=== PATIENT | female | born 1930 | race Caucasian/White ===

== ENCOUNTER → 2016-07-15 | Outpatient (CLI) | payer OTHER ==
[~2016-07-15] MED LIST: ADVI200T PO; DIGO0.12 PO; LASI20TA PO; METO-346 PO; OCUF0.3D OU; OXYB10TA PO; PROT1TAB2 PO; SYNT75TA PO; TYLE325T5 PO; VITA10002 PO
--- NOTE | 2016-07-16 03:09 | REP ---
Clinical: Pain. Technique: Internal rotation, external rotation, and Y view of the left shoulder. Findings: Age-related osteopenia appreciated. Inferior osteophyte noted along the humeral head along with cortical irregularities at the acromioclavicular joint and glenoid rim. Inferior spurring at the acromion process suggested. No acute fracture or dislocation. Impression: Osteopenia and osteoarthritic degenerative changes. Signed by Ze Thomas MD 07/16/2016 03:00 A
== END ==
LOC: M RAD 13:53
PROVIDERS: ATTEND Nurse Practitioner Family
DX: M19.012 Primary osteoarthritis, left shoulder (principal); M85.812 Other specified disorders of bone density and structure, left shoulder

== ENCOUNTER 2016-12-26 15:44 | Emergency (ER) | payer OTHER ==
[~2016-12-26] VITALS: Ht 149.9 cm; Wt 58.6 kg
[~2016-12-26 15:44] MED LIST changes: +OCUF0.25 OU; -OCUF0.3D OU
--- NOTE | 2016-12-26 17:49 | REP ---
Left hand series: Four views: History: Swelling after injury middle finger. Findings: There is advanced diffuse osteoporosis. There is advanced osteoarthritis at the navicular multangular articulation and erosive osteoarthritis is seen at the PIP joint of the ring finger. Old post-traumatic changes are seen at the distal phalanx of the small finger. There is a nodular area of prominent soft tissue swelling at the PIP joint of the long finger. No fracture is seen. 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 Impression: Diffuse osteoporosis. Focal soft tissue swelling at the PIP joint of the long finger. 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 No acute bony abnormality. Signed by Epifanio Gonzales MD 12/26/2016 07:24 P
[2016-12-26 18:07] LABS: BASO % 0.4 % (0.0-1.0); EOS # 0.1 10^3/uL (0.0-0.50); EOS % 1.3 % (0.0-3.0); IMMATURE GRANULOCYTE % 0.2 % (0-0); LYMPH % 22.6 % (24.0-44.0); MEAN CORPUSCULAR HEMOGLOBIN 32.5 pg (27.0-33.0); MEAN CORPUSCULAR HGB CONC 33.9 g/dl (32.0-36.5); MEAN CORPUSCULAR VOLUME 95.9 fl (80.0-96.0); MONO # 0.5 10^3/uL (0.0-0.8); MONO % 11.4 % (0.0-5.0); NEUTROPHILS # 2.9 10^3/uL (1.8-7.7); NEUTROPHILS % 64.1 % (36.0-66.0); PLATELET COUNT, AUTOMATED 129 10^3/uL (150-450); WHITE BLOOD COUNT 4.6 10^3/uL (4.0-10.0)
[2016-12-26 18:17] LABS: INR 1.24
[2016-12-26 18:50] LABS: ERYTHROCYTE SEDIMENTATION RATE 15 mm/hr (0-42)
[2016-12-26] MEDS ORDERED: KEFL500C17 PO (18:52)
[2016-12-26 19:10] VITALS: BP 133/91
== END 2016-12-26 19:15 | disposition home or self-care (01) ==
LOC: M ED 15:44
DX: S61.213A Laceration without foreign body of left middle finger without damage to nail, initial encounter (principal); W26.8XXA Contact with other sharp object(s), not elsewhere classified, initial encounter; Y92.9 Unspecified place or not applicable; Y93.89 Activity, other specified; Y99.9 Unspecified external cause status; D72.829 Elevated white blood cell count, unspecified; M81.8 Other osteoporosis without current pathological fracture; E03.9 Hypothyroidism, unspecified; F32.9 Major depressive disorder, single episode, unspecified; Z79.899 Other long term (current) drug therapy

== ENCOUNTER 2018-01-15 13:18 | Inpatient (IN) | payer OTHER ==
[2018-01-15 14:31] LABS: KETONE, URINE AUTO RFX NEGATIVE (NEGATIVE); LEUKOCYTE ESTERASE UR AUTO RFX TRACE (NEGATIVE); MUCUS, URINE RFX SMALL (NEGATIVE); NITRITE, URINE AUTO RFX NEGATIVE (NEGATIVE); RBC, URINE AUTO RFX 1 /HPF (0-3); SPECIFIC GRAVITY UR AUTO RFX 1.027 (1.002-1.035); SQUAM EPITHELIAL CELL UR AURFX 1 /HPF (0-6); WBC, URINE AUTO RFX 2 /HPF (0-3)
[2018-01-15] MEDS ORDERED: GASTROGRAFIN SOLUTION 30ML (Q9963) As Ordered (15:09)
[2018-01-15] MEDS: GASTROGRAFIN SOLUTION 30ML PO ×2 (15:30→16:12)
[2018-01-15] MEDS ORDERED: ISOVUE-370 76% 100ML VIAL (Q9967) As Ordered (15:44)
[2018-01-15 15:45] LABS: BASO % 0.6 % (0.0-1.0); EOS # 0.1 10^3/uL (0.0-0.50); EOS % 1.1 % (0.0-3.0); HEMOGLOBIN 14.5 g/dl (12.0-15.5); IMMATURE GRANULOCYTE % 0.4 % (0-3.0); LYMPH % 18.2 % (24.0-44.0); MEAN CORPUSCULAR HEMOGLOBIN 32.9 pg (27.0-33.0); MEAN CORPUSCULAR HGB CONC 34.5 g/dl (32.0-36.5); MEAN CORPUSCULAR VOLUME 95.2 fl (80.0-96.0); MONO # 0.7 10^3/uL (0.0-0.8); MONO % 13.4 % (0.0-5.0); NEUTROPHILS # 3.5 10^3/uL (1.8-7.7); NEUTROPHILS % 66.3 % (36.0-66.0); PLATELET COUNT, AUTOMATED 126 10^3/uL (150-450); RED BLOOD COUNT 4.41 10^6/uL (4.00-5.40); RED CELL DISTRIBUTION WIDTH 12.9 % (11.5-14.5); WHITE BLOOD COUNT 5.2 10^3/uL (4.0-10.0)
[2018-01-15] MEDS: ONDANSETRON 4MG/2ML VIAL (J2405) IV (15:45)
[2018-01-15] MEDS: MORPHINE 2 MG/ML 1ML SYRINGE (J2270) IV ×2 (15:47→16:12)
[2018-01-15 16:30] LABS: ANION GAP 11 MEQ/L (8-16); BLOOD UREA NITROGEN 29 MG/DL (7-18); CALCIUM LEVEL 8.4 MG/DL (8.8-10.2); CARBON DIOXIDE LEVEL 23 MEQ/L (21-32); CHLORIDE LEVEL 102 MEQ/L (98-107); CREATININE FOR GFR 0.84 MG/DL (0.55-1.30); GLOMERULAR FILTRATION RATE > 60.0 (>32); GLUCOSE, FASTING 85 MG/DL (70-100); POTASSIUM SERUM 4.3 MEQ/L (3.5-5.1); SODIUM LEVEL 136 MEQ/L (136-145)
[2018-01-15 17:32] LABS: FREE T4 1.41 NG/DL (0.76-1.46)
[2018-01-15] MEDS: METOPROLOL TART 25 MG TABLET PO (18:05)
[2018-01-15] MEDS: LEVOTHYROXINE 75MCG TABLET (0.075MG) PO (22:21)
[2018-01-15] MEDS: oxyBUTYnin *DITROPAN XL* 5 MG TABCR PO (22:21)
[2018-01-15] MEDS: CYANOCOBALAMIN 500 MCG TAB PO (22:21)
[2018-01-15] MEDS: RIVAROXABAN 20 MG TAB (XARELTO) PO (22:21)
[2018-01-15] MEDS: NORCO, ANEXSIA 5/325MG TABLET (HYDROcodone/ACETAMINOPHEN) PO (22:22)
[2018-01-16] MEDS: NORCO, ANEXSIA 5/325MG TABLET (HYDROcodone/ACETAMINOPHEN) PO ×2 (05:29→20:44)
[2018-01-16] MEDS: FUROSEMIDE 20 MG TAB PO (09:13)
[2018-01-16] MEDS: MORPHINE 4 MG/ML 1ML VIAL/SYRINGE (J2270) IV (17:06)
[2018-01-16] MEDS: RIVAROXABAN 20 MG TAB (XARELTO) PO (17:06)
[2018-01-16] MEDS: LEVOTHYROXINE 75MCG TABLET (0.075MG) PO (20:43)
[2018-01-16] MEDS: oxyBUTYnin *DITROPAN XL* 5 MG TABCR PO (20:43)
[2018-01-16] MEDS: CYANOCOBALAMIN 500 MCG TAB PO (20:44)
[2018-01-16] MEDS: MIRALAX *UNIT DOSE* 17GM PACKET PO (20:44)
[2018-01-16] MEDS: DOCUSATE SODIUM 100 MG CAP PO (20:44)
[2018-01-17] MEDS: NORCO, ANEXSIA 5/325MG TABLET (HYDROcodone/ACETAMINOPHEN) PO ×4 (04:40→21:44)
[2018-01-17] MEDS: MIRALAX *UNIT DOSE* 17GM PACKET PO ×2 (09:51→21:44)
[2018-01-17] MEDS: DOCUSATE SODIUM 100 MG CAP PO ×2 (09:51→21:43)
[2018-01-17] MEDS: FUROSEMIDE 20 MG TAB PO (09:51)
[2018-01-17] MEDS: RIVAROXABAN 20 MG TAB (XARELTO) PO (17:58)
[2018-01-17] MEDS: CYANOCOBALAMIN 500 MCG TAB PO (21:43)
[2018-01-17] MEDS: oxyBUTYnin *DITROPAN XL* 5 MG TABCR PO (21:43)
[2018-01-17] MEDS: LEVOTHYROXINE 75MCG TABLET (0.075MG) PO (21:43)
[2018-01-18] MEDS: NORCO, ANEXSIA 5/325MG TABLET (HYDROcodone/ACETAMINOPHEN) PO ×3 (05:21→17:37)
[2018-01-18] MEDS: DOCUSATE SODIUM 100 MG CAP PO ×2 (08:04→21:28)
[2018-01-18] MEDS: FUROSEMIDE 20 MG TAB PO (08:04)
[2018-01-18] MEDS: MIRALAX *UNIT DOSE* 17GM PACKET PO ×2 (08:04→21:28)
[2018-01-18 09:13] LABS: HEMATOCRIT 41.8 % (36.0-47.0); HEMOGLOBIN 14.1 g/dl (12.0-15.5); MEAN CORPUSCULAR HEMOGLOBIN 32.4 pg (27.0-33.0); MEAN CORPUSCULAR HGB CONC 33.7 g/dl (32.0-36.5); MEAN CORPUSCULAR VOLUME 96.1 fl (80.0-96.0); PLATELET COUNT, AUTOMATED 130 10^3/uL (150-450); RED BLOOD COUNT 4.35 10^6/uL (4.00-5.40); RED CELL DISTRIBUTION WIDTH 12.7 % (11.5-14.5); WHITE BLOOD COUNT 4.6 10^3/uL (4.0-10.0)
[2018-01-18 09:20] LABS: ANION GAP 5 MEQ/L (8-16); BLOOD UREA NITROGEN 19 MG/DL (7-18); CALCIUM LEVEL 8.7 MG/DL (8.8-10.2); CARBON DIOXIDE LEVEL 28 MEQ/L (21-32); CHLORIDE LEVEL 99 MEQ/L (98-107); CREATININE FOR GFR 0.85 MG/DL (0.55-1.30); GLOMERULAR FILTRATION RATE > 60.0 (>32); GLUCOSE, FASTING 114 MG/DL (70-100); POTASSIUM SERUM 4.5 MEQ/L (3.5-5.1); SODIUM LEVEL 132 MEQ/L (136-145)
[2018-01-18] MEDS: RIVAROXABAN 20 MG TAB (XARELTO) PO (17:37)
[2018-01-18] MEDS: CYANOCOBALAMIN 500 MCG TAB PO (21:28)
[2018-01-18] MEDS: LEVOTHYROXINE 75MCG TABLET (0.075MG) PO (21:28)
[2018-01-18] MEDS: oxyBUTYnin *DITROPAN XL* 5 MG TABCR PO (21:31)
[2018-01-19] MEDS: NORCO, ANEXSIA 5/325MG TABLET (HYDROcodone/ACETAMINOPHEN) PO (02:58)
[2018-01-19 06:48] LABS: HEMATOCRIT 41.4 % (36.0-47.0); HEMOGLOBIN 14.2 g/dl (12.0-15.5); MEAN CORPUSCULAR HEMOGLOBIN 32.6 pg (27.0-33.0); MEAN CORPUSCULAR HGB CONC 34.3 g/dl (32.0-36.5); MEAN CORPUSCULAR VOLUME 95.2 fl (80.0-96.0); PLATELET COUNT, AUTOMATED 119 10^3/uL (150-450); RED BLOOD COUNT 4.35 10^6/uL (4.00-5.40); RED CELL DISTRIBUTION WIDTH 12.6 % (11.5-14.5)
[2018-01-19 07:16] LABS: ANION GAP 8 MEQ/L (8-16); BLOOD UREA NITROGEN 17 MG/DL (7-18); CARBON DIOXIDE LEVEL 28 MEQ/L (21-32); CHLORIDE LEVEL 99 MEQ/L (98-107); CREATININE FOR GFR 0.88 MG/DL (0.55-1.30); GLOMERULAR FILTRATION RATE > 60.0 (>32); GLUCOSE, FASTING 71 MG/DL (70-100); POTASSIUM SERUM 4.1 MEQ/L (3.5-5.1); SODIUM LEVEL 135 MEQ/L (136-145)
[2018-01-19] MEDS: FUROSEMIDE 20 MG TAB PO (10:12)
[2018-01-19] MEDS: MAGNESIUM CITRATE 300 ML BTL PO (10:13)
[2018-01-19] MEDS: MIRALAX *UNIT DOSE* 17GM PACKET PO ×2 (10:13→20:24)
[2018-01-19] MEDS: DOCUSATE SODIUM 100 MG CAP PO ×2 (10:13→20:24)
[2018-01-19] MEDS ORDERED: MAGNESIUM CITRATE 300 ML BTL PO (12:00)
[2018-01-19] MEDS: RIVAROXABAN 20 MG TAB (XARELTO) PO (18:48)
[2018-01-19] MEDS: ACETAMINOPHEN 325 MG TAB PO (20:24)
[2018-01-19] MEDS: CYANOCOBALAMIN 500 MCG TAB PO (20:25)
[2018-01-19] MEDS: oxyBUTYnin *DITROPAN XL* 5 MG TABCR PO (20:25)
[2018-01-19] MEDS: LEVOTHYROXINE 75MCG TABLET (0.075MG) PO (20:25)
[2018-01-20 06:32] LABS: HEMATOCRIT 45.7 % (36.0-47.0); HEMOGLOBIN 15.6 g/dl (12.0-15.5); MEAN CORPUSCULAR HEMOGLOBIN 32.2 pg (27.0-33.0); MEAN CORPUSCULAR HGB CONC 34.1 g/dl (32.0-36.5); MEAN CORPUSCULAR VOLUME 94.2 fl (80.0-96.0); PLATELET COUNT, AUTOMATED 152 10^3/uL (150-450); RED BLOOD COUNT 4.85 10^6/uL (4.00-5.40); RED CELL DISTRIBUTION WIDTH 13.1 % (11.5-14.5); WHITE BLOOD COUNT 8.5 10^3/uL (4.0-10.0)
[2018-01-20] MEDS: NORCO, ANEXSIA 5/325MG TABLET (HYDROcodone/ACETAMINOPHEN) PO (06:47)
[2018-01-20 06:59] LABS: ANION GAP 9 MEQ/L (8-16); BLOOD UREA NITROGEN 25 MG/DL (7-18); CALCIUM LEVEL 9.3 MG/DL (8.8-10.2); CARBON DIOXIDE LEVEL 30 MEQ/L (21-32); CHLORIDE LEVEL 96 MEQ/L (98-107); CREATININE FOR GFR 1.13 MG/DL (0.55-1.30); GLOMERULAR FILTRATION RATE 48.4 (>32); GLUCOSE, FASTING 100 MG/DL (70-100); POTASSIUM SERUM 4.3 MEQ/L (3.5-5.1); SODIUM LEVEL 135 MEQ/L (136-145)
[2018-01-20] MEDS: MIRALAX *UNIT DOSE* 17GM PACKET PO ×2 (09:00→20:02)
[2018-01-20] MEDS: DOCUSATE SODIUM 100 MG CAP PO ×2 (09:00→20:02)
[2018-01-20] MEDS: RIVAROXABAN 20 MG TAB (XARELTO) PO (18:01)
[2018-01-20] MEDS: LEVOTHYROXINE 75MCG TABLET (0.075MG) PO (20:25)
[2018-01-20] MEDS: oxyBUTYnin *DITROPAN XL* 5 MG TABCR PO (20:25)
[2018-01-20] MEDS: CYANOCOBALAMIN 500 MCG TAB PO (20:25)
[2018-01-21] MEDS: NORCO, ANEXSIA 5/325MG TABLET (HYDROcodone/ACETAMINOPHEN) PO (03:00)
[2018-01-21 07:24] LABS: HEMATOCRIT 42.3 % (36.0-47.0); HEMOGLOBIN 14.3 g/dl (12.0-15.5); MEAN CORPUSCULAR HEMOGLOBIN 32.6 pg (27.0-33.0); MEAN CORPUSCULAR HGB CONC 33.8 g/dl (32.0-36.5); MEAN CORPUSCULAR VOLUME 96.6 fl (80.0-96.0); PLATELET COUNT, AUTOMATED 142 10^3/uL (150-450); RED BLOOD COUNT 4.38 10^6/uL (4.00-5.40); WHITE BLOOD COUNT 4.7 10^3/uL (4.0-10.0)
[2018-01-21 07:48] LABS: ANION GAP 6 MEQ/L (8-16); BLOOD UREA NITROGEN 27 MG/DL (7-18); CARBON DIOXIDE LEVEL 31 MEQ/L (21-32); CHLORIDE LEVEL 98 MEQ/L (98-107); CREATININE FOR GFR 0.96 MG/DL (0.55-1.30); GLOMERULAR FILTRATION RATE 58.4 (>32); GLUCOSE, FASTING 81 MG/DL (70-100); POTASSIUM SERUM 4.6 MEQ/L (3.5-5.1); SODIUM LEVEL 135 MEQ/L (136-145)
[2018-01-21] MEDS: DOCUSATE SODIUM 100 MG CAP PO ×2 (09:49→20:24)
[2018-01-21] MEDS: MIRALAX *UNIT DOSE* 17GM PACKET PO ×2 (09:49→20:24)
[2018-01-21] MEDS: RIVAROXABAN 20 MG TAB (XARELTO) PO (17:38)
[2018-01-21] MEDS: oxyBUTYnin *DITROPAN XL* 5 MG TABCR PO (20:24)
[2018-01-21] MEDS: CYANOCOBALAMIN 500 MCG TAB PO (20:24)
[2018-01-21] MEDS: LEVOTHYROXINE 75MCG TABLET (0.075MG) PO (20:24)
[2018-01-22] MEDS: ACETAMINOPHEN 325 MG TAB PO (00:05)
[2018-01-22 06:05] LABS: HEMATOCRIT 41.1 % (36.0-47.0); MEAN CORPUSCULAR HEMOGLOBIN 32.9 pg (27.0-33.0); MEAN CORPUSCULAR HGB CONC 34.1 g/dl (32.0-36.5); MEAN CORPUSCULAR VOLUME 96.7 fl (80.0-96.0); PLATELET COUNT, AUTOMATED 149 10^3/uL (150-450); RED BLOOD COUNT 4.25 10^6/uL (4.00-5.40); WHITE BLOOD COUNT 4.3 10^3/uL (4.0-10.0)
[2018-01-22 06:30] LABS: ANION GAP 4 MEQ/L (8-16); BLOOD UREA NITROGEN 25 MG/DL (7-18); CARBON DIOXIDE LEVEL 31 MEQ/L (21-32); CHLORIDE LEVEL 100 MEQ/L (98-107); CREATININE FOR GFR 0.92 MG/DL (0.55-1.30); GLOMERULAR FILTRATION RATE > 60.0 (>32); GLUCOSE, FASTING 87 MG/DL (70-100); POTASSIUM SERUM 4.9 MEQ/L (3.5-5.1); SODIUM LEVEL 135 MEQ/L (136-145)
[2018-01-22] MEDS: MIRALAX *UNIT DOSE* 17GM PACKET PO (08:52)
[2018-01-22] MEDS: DOCUSATE SODIUM 100 MG CAP PO (08:52)
[2018-01-22] MEDS: NORCO, ANEXSIA 5/325MG TABLET (HYDROcodone/ACETAMINOPHEN) PO (11:54)
== END 2018-01-22 13:10 | disposition home health service (06) | DRG 552 ==
LOC: M ED 13:18 → M ED INP 18:31 → M MS5PR 20:07
DX: S22.080A Wedge compression fracture of T11-T12 vertebra, initial encounter for closed fracture (principal); W18.30XA Fall on same level, unspecified, initial encounter; Y92.009 Unspecified place in unspecified non-institutional (private) residence as the place of occurrence of the external cause; I48.2 Chronic atrial fibrillation; E03.9 Hypothyroidism, unspecified; R33.9 Retention of urine, unspecified; Z79.899 Other long term (current) drug therapy; Z79.01 Long term (current) use of anticoagulants

== ENCOUNTER 2018-04-28 15:36 | Inpatient (IN) | payer MEDICARE, OTHER ==
[~2018-04-28] VITALS: Ht 162.6 cm; Wt 56.4 kg
[~2018-04-28 15:36] MED LIST changes: +COLA100C5 PO; +FURO20TA2 PO; +KEFL500C17 PO; -LASI20TA PO; +LASI20TA3 PO; +NORCOTAB PO; +XARE20TA PO
--- NOTE | 2018-04-28 17:12 | REP ---
Chest one-view HISTORY: Abdominal pain Comparison: 09/12/2014 The lungs are clear. The cardiac silhouette is apart The pulmonary vasculature is normal in appearance. Impression: Cardiomegaly. Electronically Signed by Jabari Cavanaugh MD 04/28/2018 05:03 P
[2018-04-28] MEDS ORDERED: ONDANSETRON 4MG/2ML VIAL (J2405) IV ONE (17:15)
[2018-04-28] MEDS ORDERED: NS 1,000 ML IV ONE (17:15)
--- NOTE | 2018-04-28 17:25 | ECGEPIP ---
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
[2018-04-28 17:38] LABS: BASO % 0.3 % (0.0-1.0); EOS % 0.3 % (0.0-3.0); HEMATOCRIT 41.4 % (36.0-47.0); HEMOGLOBIN 14.4 g/dl (12.0-15.5); LYMPH # 1.3 10^3/uL (1.5-4.5); LYMPH % 19.6 % (24.0-44.0); MEAN CORPUSCULAR HGB CONC 34.8 g/dl (32.0-36.5); MEAN CORPUSCULAR VOLUME 97.9 fl (80.0-96.0); MONO # 0.8 10^3/uL (0.0-0.8); MONO % 11.5 % (0.0-5.0); NEUTROPHILS # 4.5 10^3/uL (1.8-7.7); NEUTROPHILS % 67.9 % (36.0-66.0); PLATELET COUNT, AUTOMATED 184 10^3/uL (150-450); RED BLOOD COUNT 4.23 10^6/uL (4.00-5.40); WHITE BLOOD COUNT 6.7 10^3/uL (4.0-10.0)
[2018-04-28 17:58] LABS: INR 1.97; PROTHROMBIN TIME 22.8 SECONDS (12.1-14.4)
[2018-04-28 18:03] LABS: ALBUMIN 3.1 GM/DL (3.2-5.2); ALT/SGPT 11 U/L (12-78); BILIRUBIN,DIRECT 0.3 MG/DL (0.0-0.2); BILIRUBIN,TOTAL 0.9 MG/DL (0.2-1.0); BLOOD UREA NITROGEN 17 MG/DL (7-18); CALCIUM LEVEL 8.2 MG/DL (8.8-10.2); CARBON DIOXIDE LEVEL 25 MEQ/L (21-32); CHLORIDE LEVEL 101 MEQ/L (98-107); CREATININE FOR GFR 0.67 MG/DL (0.55-1.30); GLOMERULAR FILTRATION RATE > 60.0 (>32); GLUCOSE, FASTING 91 MG/DL (70-100); LIPASE 50 U/L (73-393); POTASSIUM SERUM 4.6 MEQ/L (3.5-5.1); SODIUM LEVEL 134 MEQ/L (136-145); TOTAL PROTEIN 5.3 GM/DL (6.4-8.2)
[2018-04-28] MEDS ORDERED: ISOVUE-370 76% 100ML VIAL (Q9967) As Ordered ONE (18:42)
--- NOTE | 2018-04-28 20:13 | REPVR ---
EXAM: CT Abdomen and Pelvis With Contrast EXAM DATE/TIME: 04/28/2018 6:51 PM CLINICAL HISTORY: 87 years old, female; Pain; Abdominal pain; Additional info: Abd pain/hernia TECHNIQUE: Axial computed tomography images of the abdomen and pelvis with intravenous contrast. All CT scans at this facility use at least one of these dose optimization techniques: automated exposure control; mA and/or kV adjustment per patient size (includes targeted exams where dose is matched to clinical indication); or iterative reconstruction. Coronal and sagittal reformatted images were created and reviewed. CONTRAST: 100 ml of ISO 370 administered intravenously. COMPARISON: CT ABD/PEL W/IV ORAL CONTRAS 01/15/2018 3:42 PM FINDINGS: Lower thorax: There is moderate cardiomegaly. There is no pericardial effusion. There are small bilateral pleural effusions. ABDOMEN: Liver: There are is uniform enhancement of the liver. Gallbladder and bile ducts: The patient is post cholecystectomy. Pancreas: Normal pancreas. Spleen: Normal appearing spleen. Adrenals: Normal adrenal glands. Kidneys and ureters: There is enhancement of the right and left kidney. The right kidney is small compared to the left. PELVIS: Bladder: Urinary bladder is empty. There is no evidence of hydronephrosis. Reproductive: Post hysterectomy. ABDOMEN and PELVIS: Intraperitoneal space: There is no evidence of pneumoperitoneum. There is a moderate amount of ascites through the abdomen and pelvis. The diffuse ascites is new since January. Bones/joints: There is grade 2 spondylolisthesis of L4 on L5. There is mild broad-based disc protrusion L4-L5. There is severe wedge-shaped compression fracture of T12. This creates a severe posterior bony ridge impressing on the thecal sac. Abdomen and bowel: There is a 7 CM by 3.3 CM anterior abdominal wall hernia with protrusion of mesenteric fat and also protrusion of mesenteric vessels. This has increased in size by approximately 1.5 CM since January. There is edema throughout the anterior abdominal wall. There is massive distention many loops of small bowel greater than half of the small bowel. Small bowel loops are distended to 4.2 CM. There is thickening and enhancement of the bowel wall. There is a transition point between severely dilated loop of small bowel and decompressed ileum. A transition point is in the region of the anterior abdominal wall hernia. This is very suspicious for a small bowel obstruction probably a closed loop obstruction. This is a transition point is near the anterior abdominal wall hernia this is probably the point of obstruction and associated with the herniated mesentery and vessels. Representing a significant change since January. Lymph nodes: There are small lymph nodes along the left side of the aorta. Other findings: There is osteoporosis. IMPRESSION: 1. Anterior abdominal wall hernia measuring 7 CM by 3.3 CM increasing by 1.5 CM. Protrusion of mesentery and mesenteric vessels suspect this patient the point of obstruction as there is a transition of dilated small bowel to decompressed ileum. 2. Massive distention of multiple loops of small bowel throughout the abdomen with thickening of the bowel wall. Large amount of secretions and air-fluid levels. This is consistent with small bowel obstruction as there is a transition point from distended small bowel to decompressed small bowel at the level of the hernia. 3. Interval development of a moderate amount of ascites through the abdomen probably the result of the severe obstruction suspect closed-loop obstruction.Findings were discussed with RAMONE SEO at 04/28/2018 8:13 PM EST. Electronically signed by: Javon Moser On 04/28/2018 20:13:38 PM
[2018-04-28] MEDS ORDERED: MORPHINE 4 MG/ML 1ML VIAL/SYRINGE (J2270) IV PRN (22:00)
[2018-04-28] MEDS ORDERED: ONDANSETRON 4MG/2ML VIAL (J2405) IV PRN (22:00)
[2018-04-28] MEDS ORDERED: TYLE500T78 PO (22:26)
[2018-04-28] MEDS: LR 1,000 ML IV SCH (23:14)
[2018-04-29] MEDS ORDERED: HEPARIN DRIP 25,000 UNITS in APPROPRIATE DILUENT 1 EA IV SCH (02:48)
[2018-04-29 06:22] LABS: BASO % 0.4 % (0.0-1.0); EOS % 0.2 % (0.0-3.0); HEMATOCRIT 42.2 % (36.0-47.0); HEMOGLOBIN 14.5 g/dl (12.0-15.5); LYMPH # 0.9 10^3/uL (1.5-4.5); LYMPH % 18.2 % (24.0-44.0); MEAN CORPUSCULAR HEMOGLOBIN 33.8 pg (27.0-33.0); MEAN CORPUSCULAR HGB CONC 34.4 g/dl (32.0-36.5); MEAN CORPUSCULAR VOLUME 98.4 fl (80.0-96.0); MONO # 0.6 10^3/uL (0.0-0.8); NEUTROPHILS # 3.6 10^3/uL (1.8-7.7); NEUTROPHILS % 68.8 % (36.0-66.0); PLATELET COUNT, AUTOMATED 181 10^3/uL (150-450); RED BLOOD COUNT 4.29 10^6/uL (4.00-5.40); WHITE BLOOD COUNT 5.2 10^3/uL (4.0-10.0)
--- NOTE | 2018-04-29 07:26 | REP ---
Supine abdomen, single AP view, 11:36 p.m.: Comparison is the abdomen and pelvis CT earlier this same date. There is a nasogastric tube with the tip in the gastric fundus and the side-hole at the gastroesophageal junction. There are dilated small bowel loops with wall thickening. There is no colonic dilatation. There are surgical clips on the right. The renal calyces and pelves are opacified from the CT IV contrast. Impression: Dilated small bowel loops with wall thickening. Nasogastric tube as described. Electronically Signed by Lebron Murphy MD 04/29/2018 07:18 A
[2018-04-29 07:57] LABS: BLOOD UREA NITROGEN 17 MG/DL (7-18); CALCIUM LEVEL 7.9 MG/DL (8.8-10.2); CARBON DIOXIDE LEVEL 26 MEQ/L (21-32); CHLORIDE LEVEL 102 MEQ/L (98-107); CREATININE FOR GFR 0.74 MG/DL (0.55-1.30); GLOMERULAR FILTRATION RATE > 60.0 (>32); GLUCOSE, FASTING 92 MG/DL (70-100); SODIUM LEVEL 135 MEQ/L (136-145)
[2018-04-29 08:00] VITALS: BP 123/74
--- NOTE | 2018-04-29 08:05 | HPE ---
DATE OF ADMISSION: 04/28/2018 ADMISSION DIAGNOSIS: Intestinal obstruction secondary to adhesions. HISTORY OF PRESENT ILLNESS: The patient is an 87-year-old woman who presented to the emergency department at [facility] complaining of abdominal pain for several days. She reported that she had had no bowel movement for 3 days. She had had some abdominal discomfort off and on and then over the past day or so, she had developed more severe pains, particularly on the day of admission. She reported severe cramping pains that came frequently. She had some nausea and reported also some vomiting. She had had no fevers or chills. In the emergency department, she was found to have a somewhat distended abdomen with a non-reducible small midline hernia. A CT scan of the abdomen and pelvis revealed a small hernia containing only some fatty tissue. She had some markedly dilated loops of small bowel which transitioned to small decompressed loops in the right upper quadrant. There was some free fluid identified. I was consulted and the patient is now admitted to manage her small bowel obstruction. ALLERGIES: Patient has no known drug allergies. MEDICATIONS: - levothyroxine 75 mcg by mouth daily at bedtime - cyanocobalamin 1000 mcg by mouth daily at bedtime - rivaroxaban 20 mg by mouth daily at bedtime - Tylenol Extra Strength 500 mg tablets 1 gram by mouth every 6 hours as needed for pain MEDICAL HISTORY: Significant for: Atrial fibrillation. She has a history of hypothyroidism. History of chronic bilateral lower leg edema. SURGICAL HISTORY: Significant for: Laparoscopic cholecystectomy in 2015. She has had two sections and a hysterectomy. She has had surgery for her right shoulder. She has also had bilateral cataract surgery. REVIEW OF SYSTEMS: Reveals no chest pain or palpitations. She denies any shortness of breath. She has had no jaundice, pancreatitis or hepatitis. She had a compression fracture of the spine about 2 months to 3 months ago. She denies any dysuria or hematuria. FAMILY HISTORY: Noncontributory. PHYSICAL EXAM: Reveals an elderly woman lying quietly on the hospital stretcher. In the course of our discussion and examination, she had several episodes where she expressed significant pain and held her stomach from cramping. Skin is slightly pale but warm and dry. Sclerae are anicteric. Mucous membranes are tacky. Neck is without palpable mass. There is no cervical bruit. Heart: Exam shows an irregular rhythm in the 70s. Lungs are clear to auscultation. The abdomen is protuberant. She does have some bowel sounds present. There is an approximately 5 cm slightly raised, non-reducible hernia bulge in the epigastrium. This is soft and fleshy and not significantly tender. She does have some mild tenderness more diffusely on palpation of the abdomen more so in the central abdomen and slightly into the right upper quadrant. She has an old low midline scar evident. There is no sign of hernia in that area. She has palpable radial pulses bilaterally. She has changes of chronic edema of the distal halves of both lower legs. She does have some edema present. She has palpable dorsalis pedis pulses bilaterally. Laboratory studies show a white count of 7, hemoglobin 14, hematocrit of 41 and a platelet count of 184,000. Differential count showed 68% neutrophils, 20% lymphocytes and 12% monocytes. Her chemistry profile shows a sodium of 134 and her other electrolytes are entirely normal. BUN is 17 with a creatinine of 0.7 and glucose of 91. Liver function tests show her total bilirubin to be normal. AST and ALT are 26 and 11 respectively and the alkaline phosphatase is 101. Her total protein is 5.3 with an albumin of 3.1. Lipase is only 50. IMAGING STUDIES: Includes a CT scan of the abdomen and pelvis that showed some markedly dilated upper abdominal small bowel loops. These appear to terminate in the right upper quadrant where there is some nondistended small bowel noted. She has a hernia noted in the epigastrium which contains some fatty tissue but there is no evidence of bowel protruding into the hernia. There is a small amount of free fluid in the abdomen. The gallbladder is surgically absent. IMPRESSION: 1. Small bowel obstruction secondary to adhesions. 2. Atrial fibrillation. 3. Hypothyroidism. 4. Incarcerated ventral hernia. PLAN: The patient was counseled for admission to the hospital for management of her bowel obstruction. She is fully anticoagulated and we will not take her directly to the operating room. I have recommended a nasogastric tube to decompress her stomach and hopefully the small bowel as well. She will receive some IV fluids. She does not require antibiotics at this time. We will hold her anticoagulation for now. I will request a consultation from the hospitalist for management of her medical issues in anticipation that she may well require surgery for her obstruction. OSCAR
--- NOTE | 2018-04-29 08:12 | CR ---
DATE OF CONSULTATION: 04/28/2018 CHIEF COMPLAINT: Abdominal pain, nausea and vomiting. HISTORY OF PRESENT ILLNESS: The patient is an 87-year-old female. She is very difficult of hearing. Very poor historian. From the chart, it appears she has a past medical history of atrial fibrillation on anticoagulation with Xarelto, hypothyroidism, hypertension. She presented to the emergency room with nausea, vomiting, abdominal pain. A CT of the abdomen and pelvis shows a hernia with obstruction. She was seen by the surgeon and an NG tube was placed and the medical service was called for medical management. Again, the patient is a poor historian, history is very difficult to ascertain. PAST MEDICAL HISTORY: See history of present illness. PAST SURGICAL HISTORY: Unknown. ALLERGIES: No known drug allergies. HOME MEDICATIONS: - levothyroxine - Xarelto - Tylenol REVIEW OF SYSTEMS: Unable to complete as the patient is very difficult of hearing and does not have a hearing aid intact. VITAL SIGNS ON ADMISSION: Temperature 97.8, pulse rate of 70, respiratory rate of 17, satting at 94% on room air, blood pressure 108/75. PHYSICAL EXAMINATION: GENERAL: She is well nourished, in no apparent distress. HEAD: Normocephalic, atraumatic. EYES: Extraocular movements are intact. Pupils equally round and reactive to light. NECK: Supple. No jugular venous pressure (JVP). LUNGS: Clear to auscultation. No crackles. CARDIOVASCULAR: Irregularly irregular rhythm. Normal S1 and S2. ABDOMEN: The abdomen is distended. NG tube is in place. Hypoactive bowel sounds. EXTREMITIES: She has what appears to be lymphedema and chronic venous stasis changes. NEUROLOGICAL EXAM: She is alert and oriented times three. No focal deficits. LABS AND IMAGING DONE IN THE EMERGENCY ROOM: White count of 6, hemoglobin and hematocrit of 14/41, platelet count of 184. Coags: INR 1.97, BUN and creatinine 17/0.76. IMAGING: Chest x-ray cardiomegaly. CT of the abdomen and pelvis anterior abdominal wall hernia measuring 7 cm by 3.3 cm increasing by 1.5 cm. Protrusion of mesentery and mesenteric vessels suspect this patient the point of obstruction as there is a transition of dilated small bowel to decompressed ileum. Massive distention of multiple loops of small bowel throughout the abdomen with thickening of the bowel wall. Large amount of secretions and air-fluid levels. This is consistent with small bowel obstruction. Moderate amount of ascites. ASSESSMENT: Small bowel obstruction at the hernia site. Management as per the surgical team. Nothing by mouth. Serial abdominal imaging. For atrial fibrillation, will stop the patient's Xarelto and place her no heparin drip. In case she needs to go to the operating room, the heparin needs to be held only 6 hours to the procedure where Xarelto will need to be held 48 hours. She is not on anything for rate control. She is currently rate controlled. CHADS-VASc score of 4. Hypothyroidism. Will change to IV Synthroid half a dose 37.5 mcg. Will check TSH in the morning. Supportive deep vein thrombosis (DVT) prophylaxis. She is on heparin drip. Gastrointestinal (GI) prophylaxis, none. Diet nothing by mouth. Thank you for allowing me to participate in the care of this patient. Medicine will continue to follow.
[2018-04-29] MEDS: LEVOTHYROXINE 100 MCG (0.1MG) VIAL IV SCH (10:16)
[2018-04-29] MEDS: LR 1,000 ML IV SCH (11:57)
--- NOTE | 2018-04-29 13:42 | REP ---
Supine abdomen single AP view: Comparison is 04/28/2018, 11:36 p.m.: There are persisting dilated small bowel loops with wall thickening, similar to the prior study. The the tip of the nasogastric tube is again identified in the abdominal left upper quadrant. unchanged. Electronically Signed by Lebron Murphy MD 04/29/2018 01:34 P
[2018-04-29] MEDS ORDERED: GLUCOSE 4 GM CHEW TABLET PO PRN (14:00)
[2018-04-29] MEDS ORDERED: GLUCAGON FOR INJ 1 MG VIAL (J1610) SC PRN (14:00)
[2018-04-29 14:15] VITALS: BP 110/75
[2018-04-29] MEDS: HEPARIN DRIP 25,000 UNITS in APPROPRIATE DILUENT 1 EA IV SCH (15:41)
[2018-04-29 22:00] VITALS: BP 106/78
[2018-04-30] MEDS: LR 1,000 ML IV SCH ×3 (00:12→23:43)
[2018-04-30] MEDS: DEXTROSE 50% 50 ML SYRINGE IV PRN ×2 (01:21→14:48)
[2018-04-30 02:00] VITALS: BP 113/88
[2018-04-30 04:11] LABS: HEMOGLOBIN 13.6 g/dl (12.0-15.5); MEAN CORPUSCULAR HGB CONC 32.4 g/dl (32.0-36.5); PLATELET COUNT, AUTOMATED 167 10^3/uL (150-450); WHITE BLOOD COUNT 5.2 10^3/uL (4.0-10.0)
[2018-04-30] MEDS: HEPARIN SOD (PORCINE) 5000 UNITS/ML VIAL IV PRN (04:37)
[2018-04-30 06:00] VITALS: BP 111/68
--- NOTE | 2018-04-30 08:46 | REP ---
Supine abdomen single AP view: Comparison is 04/29/2018. The tip of the the nasogastric tube is again identified in the left upper quadrant. The number of dilated small bowel loops has significantly decreased. There are a few persisting dilated small bowel loops in the right lower quadrant. The remainder of the previously dilated small bowel loops are no longer dilated. Impression: Improved bowel gas pattern with fewer dilated small bowel loops on the study today. Electronically Signed by Lebron Murphy MD 04/30/2018 08:37 A
[2018-04-30] MEDS: LEVOTHYROXINE 100 MCG (0.1MG) VIAL IV SCH (09:02)
[2018-04-30 10:00] VITALS: BP 119/73
[2018-04-30 14:00] VITALS: BP 120/75
[2018-04-30] MEDS: HEPARIN DRIP 25,000 UNITS in APPROPRIATE DILUENT 1 EA IV SCH (15:25)
--- NOTE | 2018-04-30 20:18 | IPN ---
DATE: 04/29/2018 HISTORY: The patient was admitted late last evening with a bowel obstruction, likely secondary to adhesions. She had a markedly distended abdomen and was having severe crampy abdominal pains. She was kept nothing by mouth (n.p.o.) with a nasogastric (NG) tube in place and received some intravenous (IV) fluid. This morning she reports that she has been passing some flatus. She denies any severe pain at this time. She looks much more comfortable. Vital signs: Show that she has remained afebrile since admission. Her pulse is in the 70s to 80s and her blood pressure is good. Room air oxygen saturation is in the mid to upper 90s. Intake and output reveals that her urine output so far this morning has been recorded as 150 mL. She has 400 mL from her NG tube. PHYSICAL EXAMINATION: The patient is lying quietly on the hospital stretcher. She remains in the emergency department in a holding bed because of a shortage of beds but is due to go to [address]. She is alert and appears oriented. Skin is warm and dry. Abdomen remains distended but is somewhat softer. She does have bowel sounds present. There is no definite tenderness on palpation today. LABORATORY STUDIES: Reveal a white count of 5, hemoglobin of 14, hematocrit 42 and a platelet count of 181,000. Her differential count shows 69% neutrophils, 18% lymphocytes and 12% monocytes. Chemistry profile shows a sodium of 135, potassium 4.0, chloride 102, CO2 of 26, BUN of 17, creatinine 0.7 and a glucose of 92. TSH ordered by the hospitalist this morning is 3.5. IMAGING STUDIES: The patient had a repeat KUB today that does I think show some decrease in the size of her dilated air-filled loops of small bowel. She still has dilated loops of air-filled bowel present. IMPRESSION: The patient is much more comfortable today with the NG tube and with passage of some flatus. PLAN: Her NG tube will be continued, and she will remain on IV fluid. The hospitalist has ordered a heparin drip, oral medications, while she remains nothing by mouth. I will recheck a KUB in the morning to assess her bowel obstruction resolution. With any luck, we will be able to remove her NG tube tomorrow. OSCAR
--- NOTE | 2018-04-30 21:29 | IPNPDOC ---
Text Note Date of Service The patient was seen on 04/30/18. NOTE SUBJECTIVE: Complains of mild discomfort in the abdomen and some cramps. she also complains of soreness in her throat from the NG tube. No chest pain or palpitation. PHYSICAL EXAMINATION: VITALS: As below GENERAL: She is well nourished, in no apparent distress. HEAD: Normocephalic, atraumatic. EYES: Extraocular movements are intact. Pupils equally round and reactive to light. NECK: Supple. No jugular venous pressure (JVP). LUNGS: Clear to auscultation. No crackles. CARDIOVASCULAR: Irregularly irregular rhythm. Normal S1 and S2. rate normal ABDOMEN: The abdomen is less distended. NG tube is in place. Hyperactive bowel sounds EXTREMITIES: She has what appears to be lymphedema and chronic venous stasis changes. NEUROLOGICAL EXAM: She is alert and oriented times three. No focal deficits. Labs and Radiology: Reviewed. ASSESSMENT and PLAN: The patient is an 87-year-old female. She is very difficult of hearing. Very poor historian. From the chart, it appears she has a past medical history of atrial fibrillation on anticoagulation with Xarelto, h ypothyroidism, hypertension. She presented to the emergency room with nausea, vomiting, abdominal pain. A CT of the abdomen and pelvis shows a small midline fat filled hernia without any bowel loops in it with small bowel obstruction. She was seen by the surgeon and an NG tube was placed and the medical service was called for medical management of her medical comorbidities. Atrial fibrillation rate is controlled. xarelto stopped continue heparin infusion. Once it is definite that no surgical intervention is going to be required then can switch to Xarelto again. Hypothyroid on IV synthroid half dose. switch to po when taking by mouth History of Hypertension patient is not on any meds and currently bp is controlled. SBO likely due to adhesions as per surgery. Small midline irreducible fat filled ventral hernia There are no bowel loops in it. DVT prophylaxis patient is on heparin gtt. VS,Fishbone, I+O VS, Fishbone, I+O Laboratory Tests 04/30/18 03:39 Red Blood Count 4.00, Mean Corpuscular Volume 105.0 H, Mean Corpuscular Hemoglob in 34.0 H, Mean Corpuscular Hemoglobin Concent 32.4, Red Cell Distribution Width 14.5 Vital Signs Date Time Temp Pulse Resp B/P (MAP) Pulse Ox O2 Delivery O2 Flow Rate FiO2 04/30/18 14:00 97.6 118 20 120/75 (90) 94 04/29/18 00:28 Room Air I&O- Last 24 Hours up to 6 AM 04/30/18 06:00 Intake Total 600 ml Output Total 900 ml Balance -300 ml DIANELYS MCDOWELL MD Apr 30, 2018 21:29
[2018-04-30 22:00] VITALS: BP 130/80
[2018-05-01 02:00] VITALS: BP 126/79
[2018-05-01 06:00] VITALS: BP 128/97
[2018-05-01 06:07] LABS: HEMATOCRIT 38.7 % (36.0-47.0); HEMOGLOBIN 12.8 g/dl (12.0-15.5); MEAN CORPUSCULAR HEMOGLOBIN 33.2 pg (27.0-33.0); MEAN CORPUSCULAR HGB CONC 33.1 g/dl (32.0-36.5); MEAN CORPUSCULAR VOLUME 100.5 fl (80.0-96.0); PLATELET COUNT, AUTOMATED 153 10^3/uL (150-450); RED BLOOD COUNT 3.85 10^6/uL (4.00-5.40); WHITE BLOOD COUNT 4.8 10^3/uL (4.0-10.0)
[2018-05-01 06:43] LABS: ALBUMIN 2.4 GM/DL (3.2-5.2); ALT/SGPT 12 U/L (12-78); BILIRUBIN,TOTAL 0.9 MG/DL (0.2-1.0); BLOOD UREA NITROGEN 19 MG/DL (7-18); CARBON DIOXIDE LEVEL 23 MEQ/L (21-32); CHLORIDE LEVEL 105 MEQ/L (98-107); CREATININE FOR GFR 0.58 MG/DL (0.55-1.30); GLOMERULAR FILTRATION RATE > 60.0 (>32); GLUCOSE, FASTING 64 MG/DL (70-100); POTASSIUM SERUM 3.8 MEQ/L (3.5-5.1); SODIUM LEVEL 136 MEQ/L (136-145); TOTAL PROTEIN 4.4 GM/DL (6.4-8.2)
--- NOTE | 2018-05-01 09:34 | IPN ---
DATE: 04/30/2018 HISTORY: Patient was admitted with a small bowel obstruction on 02/25/2019 in the late evening. Yesterday, her KUB looked a little better after passage of some flatus, and today it was reported that she has had several large loose bowel movements. She has had some flatus as well. Her nasogastric (NG) tube has very little out, perhaps 200 mL this morning. She is eager to go home but still reports some abdominal discomfort. Vital signs: Show that she has been afebrile. Her pulses range between 85 and 118. Blood pressure is good, and her room air oxygen saturation is excellent. Intake and output yesterday does not appear to have been well recorded. Her intake is clearly not fully recorded given that she is on a regular intravenous (IV) rate. She does have several large bowel movements reported yesterday and today. PHYSICAL EXAM: Patient is lying quietly in the bed. She is alert and oriented. Heart exam shows a rate of about 90. Abdomen is less distended. She has fairly active bowel sounds. The abdomen is soft, though still little full on the right-hand side. She does not appear to have significant tenderness at this point. Laboratory studies show that this morning, she had a white count of 5, hemoglobin 14, hematocrit of 42, and a platelet count 167,000. This is very stable from yesterday and the day before. Her coagulation numbers have been quite variable on her heparin drip, which was ordered by the hospitalist. She did not have any new chemistries today. Her imaging this morning still showed of a couple of moderately-dilated air-filled loops on the right, but overall the pattern was much improved. IMPRESSION: Patient appears to be resolving her bowel obstruction with multiple loose bowel movements and an improved x-ray and abdominal exam. PLAN: Patient's NG tube will be clamped. If she tolerates this well, we will remove her tube and start her on some clear liquids in the morning. OSCAR
[2018-05-01] MEDS: LEVOTHYROXINE 100 MCG (0.1MG) VIAL IV SCH (09:55)
[2018-05-01 10:00] VITALS: BP 126/80
[2018-05-01] MEDS ORDERED: ACETAMINOPHEN 500 MG TAB PO PRN (11:45)
[2018-05-01] MEDS: LR 1,000 ML IV SCH (12:40)
--- NOTE | 2018-05-01 13:13 | IPN ---
DATE OF SERVICE: 05/01/2018 HISTORY: The patient was admitted with a bowel obstruction several days ago. Her nasogastric (NG) tube has been clamped over the last 24 hours or so, and she has tolerated this well. She has had several bowel movements additionally since yesterday. Today, she denies any abdominal pain. She is asking for something to drink or eat. Vital signs show that she has been afebrile over the past 24 hours. Her pulse has generally been in the 70s-80s. Her blood pressure is good, and her room air oxygen saturation is normal. Intake and output yesterday, clearly her intake was not recorded because she had an IV running and there is zero listed. Today, she has 1300 mL listed for IV intake. Her urine output appears to have been adequate. PHYSICAL EXAMINATION: The patient is lying quietly in bed but appears comfortable. She is asking for the nose tube to be removed. Skin is warm and dry. Heart examination shows a regular rhythm. The lungs are clear. The abdomen is nondistended. She has bowel sounds present, and the abdomen is soft and without any apparent tenderness this morning. Chemistry profile today shows normal electrolytes with BUN of 19, creatinine of 0.6, and a glucose of 64. Total protein is only 4.4 with an albumin of 2.4. Complete blood count (CBC) shows a white count of 5, hemoglobin 13, hematocrit of 39, and platelet count of 153,000. A PTT early this morning was 67, which is finally closer to the therapeutic range. IMPRESSION: The patient is doing very well and seems to have resolved her intestinal obstruction. PLAN: The patient's nasogastric (NG) tube will be discontinued. We will start clear liquids and saline lock her IV when she tolerates 500 mL. I will put her back on her oral Synthroid. I will encourage her to be out of bed, and it would probably be appropriate to get a physical therapy (PT) evaluation and treatment as necessary. Hopefully, she can be home in the next day or two. OSCAR
[2018-05-01] MEDS: HEPARIN SOD (PORCINE) 5000 UNITS/ML VIAL IV PRN (13:19)
[2018-05-01] MEDS: HEPARIN DRIP 25,000 UNITS in APPROPRIATE DILUENT 1 EA IV SCH (13:21)
[2018-05-01 14:00] VITALS: BP 120/69
[2018-05-01 18:00] VITALS: BP 126/81
[2018-05-01] MEDS: CYANOCOBALAMIN 500 MCG TAB PO SCH (20:25)
[2018-05-01 22:00] VITALS: BP 125/86
[2018-05-02 02:00] VITALS: BP 122/82
[2018-05-02 06:00] VITALS: BP 114/75
[2018-05-02 10:00] VITALS: BP 124/82
[2018-05-02 14:00] VITALS: BP 128/82
[2018-05-02] MEDS ORDERED: RIVAROXABAN 20 MG TAB (XARELTO) PO ONE (15:00)
--- NOTE | 2018-05-02 15:18 | IPNPDOC ---
Text Note Date of Service The patient was seen on 05/02/18. NOTE SUBJECTIVE: No complaints this morning. Feeling hungry, Off NG tube. diet is bieng advanced by surgery. PHYSICAL EXAMINATION: VITALS: As below GENERAL: She is well nourished, in no apparent distress. HEAD: Normocephalic, atraumatic. EYES: Extraocular movements are intact. Pupils equally round and reactive to light. NECK: Supple. No jugular venous pressure (JVP). LUNGS: Clear to auscultation. No crackles. CARDIOVASCULAR: Irregularly irregular rhythm. Normal S1 and S2. rate normal ABDOMEN: The abdomen is less distended. NG tube is in place. Hyperactive bowel sounds EXTREMITIES: She has what appears to be lymphedema and chronic venous stasis changes. NEUROLOGICAL EXAM: She is alert and oriented times three. No focal deficits. Labs and Radiology: Reviewed. ASSESSMENT and PLAN: The patient is an 87-year-old female. She is very difficult of hearing. Very poor historian. From the chart, it appears she has a past medical history of atrial fibrillation on anticoagulation with Xarelto, hypothyroidism, hypertension. She presented to the emergency room with nausea, vomiting, abdominal pain. A CT of the abdomen and pelvis shows a small midline fat filled hernia without any bowel loops in it with small bowel obstruction. She was seen by the surgeon and an NG tube was placed and the medical service was called for medical management of her medical comorbidities. Atrial fibrillation rate is controlled. Heparin gtt stopped back on xarelto Hypothyroid switch to po synthroid. History of Hypertension patient is not on any meds and currently bp is controlled. SBO likely due to adhesions as per surgery. Small midline irreducible fat filled ventral hernia There are no bowel loops in it. DVT prophylaxis on Xarelto VS,Fishbone, I+O VS, Fishbone, I+O Vital Signs Date Time Temp Pulse Resp B/P (MAP) Pulse Ox O2 Delivery O2 Flow Rate FiO2 05/02/18 14:00 99.1 114 20 128/82 (97) 98 04/29/18 00:28 Room Air I&O- Last 24 Hours up to 6 AM 05/02/18 06:00 Intake Total 1050 ml Output Total 150 ml Balance 900 ml DIANELYS MCDOWELL MD May 02, 2018 15:18
[2018-05-02] MEDS: CYANOCOBALAMIN 500 MCG TAB PO SCH (20:55)
[2018-05-02] MEDS ORDERED: LEVOTHYROXINE 75MCG TABLET (0.075MG) PO SCH (21:00)
[2018-05-02 22:00] VITALS: BP 139/79
[2018-05-03 06:00] VITALS: BP 134/81
[2018-05-03] MEDS ORDERED: RIVAROXABAN 20 MG TAB (XARELTO) PO SCH (18:00)
--- NOTE | 2018-05-03 20:17 | IPN ---
DATE: 05/02/2018 HISTORY: The patient was admitted with a small bowel obstruction on 04/28/2018. She developed multiple bowel movements starting on 04/29/2018. She was advanced to clear liquids on 05/01/2018. She reports that she has no significant pain and has had no nausea or vomiting. She is asking to go home. She took 1000 mL of liquids yesterday and had six bowel movements recorded. Vital signs show that she has been afebrile over the past 24 hours. Her pulse is in the 70s to about 100. Blood pressure is good and her room air oxygen saturation is normal. Intake and output shows that yesterday she had 2400 in and there is 300 of volume recorded out though she did have three voids recorded and six bowel movements noted. PHYSICAL EXAMINATION: The patient is alert and eager to go home. She has not yet had any solid food. She does report flatus and another small bowel movement today. This is not recorded. Heart exam shows a regular rhythm. The lungs are clear. She appears quite comfortable in the bed. Her abdomen is a little protuberant but soft and without any tenderness and she has active bowel sounds. LABORATORY STUDIES: Today she has only a PTT which is 48 on her heparin drip. IMPRESSION: The patient is doing very well. Her diarrhea has stopped. She is tolerating clear liquids well. I have ordered her a regular diet which she can try for lunch. PLAN: On reviewing her physical therapy evaluation from yesterday, they felt that she might benefit from additional inpatient services before discharge. The patient sounds adamant that she did a lot of PT in January and February because of her back injury and does not feel she will need any additional physical therapy. She reports that her two sons live in her home with her and that they help care for her. She says she has a walker at home. She does not do much that gets her out of the house. I will restart her Xarelto and stop the heparin drip. We will try getting her up to ambulate and let her try some regular food for lunch. We will see how things go today and we may be able to discharge her later in the day. OSCAR
--- NOTE | 2018-05-04 14:40 | IPN ---
DATE:05/03/2018 HISTORY: The patient was admitted with signs and symptoms of an intestinal obstruction on 04/28/2018. Her bowel obstruction appeared to resolve over the ensuing 2 days. Her diet was gradually advanced and she has been on regular food since yesterday. She has tolerated this well. She denies any abdominal pain and is eager to go home. Vital signs show that she has been afebrile over the last 24 hours. Her pulse ranges between 99-114 since yesterday. Blood pressure is good and her room air oxygen saturations are normal. Intake and output shows that yesterday she had 720 recorded with several voids and four bowel movements recorded. PHYSICAL EXAMINATION: The patient is lying quietly in the hospital bed, appearing comfortable. She denies any pain. Heart exam shows a regular rhythm. Lungs are clear. The abdomen is slightly protuberant but she has active bowel sounds, and the abdomen is soft and nontender. Her small incarcerated fat containing hernia persists and is nontender. IMPRESSION: The patient's small bowel obstruction has resolved. She is tolerating regular food and is eager to go home. I saw her up walking yesterday evening with one of the nurses using a walker and I believe she is stable for discharge. PLAN: The patient will be discharged home. She does not need to followup with surgery regarding this problem. I did advise her that there is a chance she could have recurrence of her obstruction and she should return to the emergency department if necessary. She should otherwise followup with her primary physician as needed. She will resume the medication she was taking prior to admission. OSCAR
--- NOTE | 2018-05-19 08:17 | DSES ---
DATE OF ADMISSION: 04/28/2018 DATE OF DISCHARGE: 05/03/2018 ADMITTING DIAGNOSIS: Intestinal obstruction secondary to adhesions. HISTORY OF THE PRESENT ILLNESS: The patient is an 87-year-old woman, who presented to the emergency department complaining of abdominal pain for several days. She reported that she had, had no bowel movement for 3 days. She had some abdominal discomfort on and off. She developed more severe pains, particularly on the day of admission. She had some cramping that came frequently. Some nausea was reported, also some vomiting. A CT scan of the abdomen and pelvis in the emergency department revealed a small hernia containing only some fatty tissue. She had some markedly dilated loops of small bowel, which transitioned to small decompressed loops in the right upper quadrant. There was some free fluid identified. I was consulted and the patient is admitted for management of her small bowel obstruction. HOSPITAL COURSE: The patient was admitted. A nasogastric tube was placed for decompression. She was started on some intravenous (IV) fluids. She did not require antibiotics. A consultation for the hospitalist was requested for assistance in managing her medical issues. She was seen by the hospitalist for management. She was started on a heparin drip to prevent problems with her anticoagulation held. The patient developed some loose bowel movements starting on 04/29/2018 into 04/30/2018. Her nasogastric tube was clamped and she tolerated this well. This was removed and she was started on clear liquids. Her diet was advanced. A physical therapy evaluation was requested. She was started back on her Xarelto and her heparin drip was stopped. She was held in the hospital an additional day for some physical therapy in anticipation of discharge and she was sent home on 05/03/2018. FINAL DIAGNOSES: 1. Intestinal obstruction secondary to adhesions. 2. Atrial fibrillation. 3. Hypothyroidism. 4. Incarcerated ventral hernia. DISPOSITION: The patient was discharged home on 05/03/2018. She was placed back on all of her preadmission medications. She was not provided with any new medications. She was to followup with her personal physician as needed but did not need to return to the surgery clinic. She could take a diet as tolerated and pursue activity as tolerated. She could shower as desired. She was to return to the emergency department if her abdominal pain symptoms recurred.
== END 2018-05-03 13:40 | disposition home or self-care (01) | DRG 389 ==
LOC: M ED 15:36 → M ED INP 21:49 → M MS5PR 04-29 14:05
PROVIDERS: ADMIT Surgery; ATTEND Surgery
DX: K56.50 Intestinal adhesions [bands], unspecified as to partial versus complete obstruction (principal); K43.6 Other and unspecified ventral hernia with obstruction, without gangrene; Z79.899 Other long term (current) drug therapy; I48.91 Unspecified atrial fibrillation; E03.9 Hypothyroidism, unspecified; I10 Essential (primary) hypertension; Z79.01 Long term (current) use of anticoagulants

== ENCOUNTER 2018-06-25 09:11 | Inpatient (IN) | payer MEDICARE ==
[~2018-06-25] VITALS: Ht 160 cm; Wt 62.5 kg
[2018-06-25] VITALS (13 sets, daily range): BP systolic 81–106; BP diastolic 48–74
[~2018-06-25 09:11] MED LIST changes: +HYDR-3715 PO; -NORCOTAB PO; +TYLE500T78 PO
[2018-06-25] MEDS ORDERED: OXYB10TA PO (09:23)
[2018-06-25] MEDS ORDERED: NS 500 ML IV ONE ×2 (09:30→09:45)
[2018-06-25] MEDS ORDERED: PANTOPRAZOLE 40MG INJ (PROTONIX) (C9113) IV ONE (09:45)
[2018-06-25 10:08] LABS: BASO % 0.4 % (0.0-1.0); EOS % 0.2 % (0.0-3.0); HEMATOCRIT 37.6 % (36.0-47.0); HEMOGLOBIN 12.7 g/dl (12.0-15.5); LYMPH # 1.8 10^3/uL (1.5-4.5); LYMPH % 34.9 % (24.0-44.0); MEAN CORPUSCULAR HEMOGLOBIN 33.1 pg (27.0-33.0); MEAN CORPUSCULAR HGB CONC 33.8 g/dl (32.0-36.5); MEAN CORPUSCULAR VOLUME 97.9 fl (80.0-96.0); MONO # 0.4 10^3/uL (0.0-0.8); MONO % 7.7 % (0.0-5.0); NEUTROPHILS # 2.9 10^3/uL (1.8-7.7); NEUTROPHILS % 56.2 % (36.0-66.0); PLATELET COUNT, AUTOMATED 187 10^3/uL (150-450); RED BLOOD COUNT 3.84 10^6/uL (4.00-5.40); WHITE BLOOD COUNT 5.2 10^3/uL (4.0-10.0)
[2018-06-25 10:18] LABS: INR 2.57; PROTHROMBIN TIME 28.1 SECONDS (12.1-14.4)
[2018-06-25 10:34] LABS: ALBUMIN 2.6 GM/DL (3.2-5.2); ALT/SGPT 23 U/L (12-78); BILIRUBIN,DIRECT 0.3 MG/DL (0.0-0.2); BILIRUBIN,TOTAL 0.7 MG/DL (0.2-1.0); BLOOD UREA NITROGEN 19 MG/DL (7-18); CALCIUM LEVEL 7.3 MG/DL (8.8-10.2); CARBON DIOXIDE LEVEL 20 MEQ/L (21-32); CHLORIDE LEVEL 104 MEQ/L (98-107); CPK CREATINE PHOSPHOKINASE 31 U/L (26-192); CREATININE FOR GFR 0.93 MG/DL (0.55-1.30); GLOMERULAR FILTRATION RATE > 60.0 (>32); GLUCOSE, FASTING 98 MG/DL (70-100); LIPASE 26 U/L (73-393); MB/CK RELATIVE INDEX 5.48 (< OR =4); POTASSIUM SERUM 3.9 MEQ/L (3.5-5.1); SODIUM LEVEL 135 MEQ/L (136-145); TOTAL PROTEIN 4.7 GM/DL (6.4-8.2); TROPONIN I 0.03 NG/ML (< 0.10)
[2018-06-25 10:45] LABS: VENOUS BASE EXCESS -7.6 (-2.0-2.0); VENOUS HCO3 18.3 MEQ/L (23.0-27.0); VENOUS O2 SATURATION 52.1 % (60.0-80.0); VENOUS PARTIAL PRESSURE CO2 38.4 mmHg (38.0-50.0); VENOUS PARTIAL PRESSURE O2 31.4 mmHg (30.0-50.0); VENOUS PH 7.295 UNITS (7.330-7.430); VENOUS STANDARD HCO3 17.4 MEQ/L; VENOUS TOTAL CO2 19.4 MEQ/L (24.0-28.0)
--- NOTE | 2018-06-25 10:58 | REP ---
CT of the abdomen and pelvis without IV or bowel contrast: Comparison is 04/28/2018. There are bilateral pleural effusions. These have significantly increased in size. There is atelectasis in the lower lobes adjacent to the pleural effusions as an interval change. There is cardiomegaly, unchanged. There is marked small bowel distension with air-fluid levels, as previously, compatible with small bowel obstruction. There is no colonic distension. There is a small bowel feces sign compatible with stasis. There is no pneumoperitoneum. There is ascites as significantly increased. There is circumferential edema in the subcutaneous fat throughout the abdomen and pelvis as an interval change compatible with anasarca. Umbilical hernia containing a bowel loop is again identified. The peritoneal defect measures 9 mm and the hernia sac measures 7 mm. The hepatic parenchyma is unremarkable. There are surgical clips in the gallbladder fossa. The pancreas and spleen are unremarkable. The adrenals and kidneys are unremarkable. Abdominal aorta is unremarkable. Pelvis: The bladder is unremarkable. There is grade 4 compression, deformity of the T12 vertebral body. This is unchanged. Impression: Persisting marked small bowel distension with multiple air-fluid levels , similar to 04/28/2018, compatible with ongoing small bowel obstruction. Small bowel feces sign compatible with stasis. The abdominal ascites has significantly increased. There is anasarca as an interval change. Midline anterior abdominal wall hernia is again identified. Bilateral pleural effusions have increased in size. Cardiomegaly, unchanged. Grade 4 compression deformity of T12, unchanged. Electronically Signed by Lebron Murphy MD 06/25/2018 10:50 A
[2018-06-25] MEDS ORDERED: ACET-897 PO (12:01)
[2018-06-25 14:01] LABS: HEMATOCRIT 37.7 % (36.0-47.0); HEMOGLOBIN 12.7 g/dl (12.0-15.5); MEAN CORPUSCULAR HEMOGLOBIN 33.7 pg (27.0-33.0); MEAN CORPUSCULAR HGB CONC 33.7 g/dl (32.0-36.5); PLATELET COUNT, AUTOMATED 146 10^3/uL (150-450); RED BLOOD COUNT 3.77 10^6/uL (4.00-5.40); WHITE BLOOD COUNT 5.1 10^3/uL (4.0-10.0)
[2018-06-25] MEDS ORDERED: METOPROLOL 5 MG/5 ML VIAL As Ordered ONE (14:14)
--- NOTE | 2018-06-25 15:25 | CR ---
DATE OF CONSULTATION: 06/25/2018 REASON FOR CONSULTATION: Abdominal distension, recent hospitalization for small-bowel obstruction, and rectal bleeding. BRIEF HISTORY OF PRESENT ILLNESS: The patient is an 87-year-old female who presents with abdominal complaints the last several weeks, she states. She states it has been going on for possibly 3 weeks, but she is such a poor historian it is hard to tell. She states that she has had some diarrhea that has been going on for quite awhile now, and that was all last week, and then over the last several days has not had a bowel movement. She had a small-bowel obstruction in April, and the presumed diagnosis was small-bowel obstruction secondary to adhesions. Had some decompression. Resolved her small-bowel obstruction, was discharged home, and now presents with abdominal distension. She is an extremely frail individual, but most importantly when I look at her studies and her imaging, what I see are bilateral pleural effusions which are marked and concerning, intra-abdominal ascites, and anasarca of her lower extremities. All these are quite concerning for some possible right heart failure as my concern. She did have some bright red blood per rectum, and she has noticed that over the last few days. Prior to that, she is not sure when she had her bowel movement or the diarrhea and is unsure if she had a blood with that, although her son states that she has had some bleeding that has been ongoing for up to a week. PAST MEDICAL HISTORY: Significant for: 1. History of atrial fibrillation. 2. History of hypothyroidism. 3. History of chronic bilateral lower extremity edema. 4. History of laparoscopic cholecystectomy. 5. History of sections and hysterectomy. 6. History of right shoulder surgery. 7. History of bilateral cataract surgery. 8. History of small-bowel obstruction. MEDICATIONS: Include Synthroid, B12, rivaroxaban, and Tylenol Extra Strength. PHYSICAL EXAMINATION: Reveals an 87-year-old female who looks stated age. HEENT: Unremarkable. NECK: Supple without adenopathy. LUNGS: Clear to auscultation anteriorly, although diminished posteriorly significantly. HEART: Regular with multiple irregular beats. ABDOMEN: Distended, tympanitic throughout. She does have a hernia, but I am able to reduce this quite nicely, and I am able to feel all the fascial edges. Does not appear to be incarcerated or strangulated at this site. She has no peritoneal signs. No guarding. No rebound. Rectal exam was performed by the emergency room (ER) physician, that did reveal some gross blood but no significant obvious hemorrhoidal bleeding. X-ray thus far reveal dilated small bowel, similar to what it was previously. They are not seeing any inflamed colon. They are not seeing any inflamed bowel per se. They are not seeing any specific mass effect. What they are seeing is ascites, pleural effusions, and anasarca. IMPRESSION AND PLAN: The patient has abdominal distension with air-fluid levels on her x-rays, all consistent with a possible small-bowel obstruction. Her albumin is 2.4, but that would not explain such significant anasarca. My concern is that there may be some cardiac etiology for this. I believe medicine is doing some workup for this during her hospital admission. From a small-bowel obstruction standpoint, I would recommend nasogastric (NG) tube for decompression. Given that she is on anticoagulation with Xarelto, care with placement of the NG tube or possibly placement with a smaller NG tube may be warranted to avoid any nasopharyngeal bleeding associated with trauma. I would keep her nothing by mouth at this point, and from a surgical standpoint I am not seeing the indication for antibiotic coverage given her normal white count. Her hematocrit is low but not significantly lower than I would expect with somebody who has had some bleeding going on for over a week now. From a gastrointestinal (GI) bleeding issue, I would recommend keeping her off her anticoagulation. Dr. Beck is back next week, and he may consider a colonoscopy or evaluation should the patient have ongoing bleeding issues. Once again, at this point NG tube decompression is very reasonable given that she has no evidence of peritoneal signs, and given the duration this has been going on for, it also suggests the bleeding is not associated with progressive mucosal ischemia. Typically, this would result in significant bowel damage after the first 24-48 hours, and thus suggest that this may be more of a chronic issue, possibly even associated with the diarrhea that she had. Otherwise, at this point, supportive care is reasonable from a surgical standpoint. I am not seeing any malignancy appreciated on her x-rays, but unfortunately this is a very poor evaluation for malignancy without contrast, with a distended bowel. More importantly, the big issue is, is she truly an operative candidate for intervention and whether she will tolerate intervention very well as. A separate issue, however, my concern at this point is once she is cleared from a medical standpoint, and that is an "if" at this point, operative intervention in somebody who has ongoing ascites is a much more delicate tissue, and she has a much higher incidence of having postoperative complications, wound infections, wound dehiscence, and chronic leaking from the abdominal wall. Thus, at this point I would do as previously mentioned, wait for reversal of the anticoagulation, given that she is hemodynamically relatively stable. If she has any aggressive bleeding, possibly interventional radiology for ablation may be necessary, and at this point NG tube decompression. Would recommend followup [facility] tomorrow morning to see how her bowel obstruction resolves/improves over the next 24-48 hours.
--- NOTE | 2018-06-25 15:56 | HPEPDOC ---
General Date of Admission Jun 25, 2018 at 11:49 Chief Complaint The patient is a 87-year-old female who presented to the ER after experiencing rectal bleed and questionable abdominal pain History of Present Illness Patient is an 87-year-old female with a PMHx of A. fib (on Xarelto), HTN, Hypothyroidism, Urinary retention presented to the ER after expressing rectal bleeding over 1 week duration. Patient has noted that she has filled the toilet bowl with blood. Patient is a poor historian. Information was gathered from her son, Vincent Del Rio. . He is indicated that patient has been complaining of abdominal pain. Over last 3-4 weeks has been expressing vomiting over 2 weeks. Scrubbed the vomitus as dark, without any evidence of blood. He is a primary caregiver for his mother. And reports that she has not experienced any fevers or chills, shortness of breath, chest pain or cough. Denies any headache, lightheadedness or loss of consciousness. He notes that they went to Dr. Fabian office today was found to have low blood pressure that prompted them to come to the emergency room for further e valuation. Patient has noted that her appetite has been poor and her son has noted that she has had a weight loss of 10 pounds over 6 months. Home Medications Scheduled Cyanocobalamin (Vitamin B-12) (Vitamin B-12) 1,000 Mcg Tab, 1,000 MCG PO DAILY, (Reported) Levothyroxine Sodium (Synthroid) 75 Mcg Tab, 75 MCG PO DAILY, (Reported) Oxybutynin Chloride (Oxybutynin Chloride ER) 10 Mg Tab.er.24, 10 MG PO DAILY, (Reported) Rivaroxaban (Xarelto) 20 Mg Tab, 20 MG PO DAILY, (Reported) Scheduled PRN Acetaminophen (Tylenol Extra Strength) 500 Mg Tablet, 1,000 MG PO QID PRN for PAIN, (Reported) Allergies Coded Allergies: No Known Drug Allergies (Verified Allergy, Unknown, 06/25/18) Past Medical History Medical History A. 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 No appreciable wheezing, rales or rhonchi - Abdomen: Soft, Non-distended, Non-tender, + Bowel sounds x 4, central abdominal hernia that appears to be reducible - Extremities: 2+ pitting edema, No calf tenderness - Neuro: No focal motor or sensory deficit - Skin: No visible rashes Laboratory Data Labs 24H Laboratory Tests 2 06/25/18 09:55: Immature Granulocyte % (Auto) 0.6, White Blood Count 5.2, Red Blood Count 3.84L, Hemoglobin 12.7, Hematocrit 37.6, Mean Corpuscular Volume 97.9H, Mean Corpuscul ar Hemoglobin 33.1H, Mean Corpuscular Hemoglobin Concent 33.8, Red Cell Distribution Width 14.5, Platelet Count 187, Neutrophils (%) (Auto) 56.2, Lymphocytes (%) (Auto) 34.9, Monocytes (%) (Auto) 7.7H, Eosinophils (%) (Auto) 0.2, Basophils (%) (Auto) 0.4, Neutrophils # (Auto) 2.9, Lymphocytes # (Auto) 1.8, Monocytes # (Auto) 0.4, Eosinophils # (Auto) 0.0, Basophils # (Auto) 0.0, Nucleated Red Blood Cells % (auto) 0.0, Prothrombin Time 28.1H, Prothromb Time International Ratio 2.57, Blood Gas Bicarbonate Standard 17.4, Venous Blood pH 7.295L, Venous Blood Partial Pressure CO2 38.4, Venous Blood Partial Pressure O2 31.4, Venous Blood Total Carbon Dioxide 19.4L, Venous Blood HCO3 18.3L, Venous Blood Oxygen Saturation 52.1L, Venous Blood Base Excess -7.6L, Anion Gap 11, Glomerular Filtration Rate > 60.0, Calcium Level 7.3L, Whole Blood Ionized Calcium 4.2L, Aspartate Amino Transf (AST/SGOT) 27, Alanine Aminotransferase (ALT/SGPT) 23, Alkaline Phosphatase 233H, Total Bilirubin 0.7, Direct Bilirubin 0.3H, Total Creatine Kinase 31, Creatine Kinase MB 2.0, Creatine Kinase MB Relative Index 5.48H, Troponin I 0.03, Total Protein 4.7L, Albumin 2.6L, Albumin/Globulin Ratio 1.24, Lipase 26L 06/25/18 10:26: Lactic Acid Level 3.5*H 06/25/18 13:48: Nucleated Red Blood Cells % (auto) 0.0 06/25/18 15:05: Lactic Acid Followup at 4 Hours 2.1*H CBC/BMP Laboratory Tests 06/25/18 09:55 Red Blood Count 3.84 L, Mean Corpuscular Volume 97.9 H, Mean Corpuscular Hemoglobin 33.1 H, Mean Corpuscular Hemoglobin Concent 33.8, Red Cell Distribution Width 14.5, Neutrophils (%) (Auto) 56.2, Lymphocytes (%) (Auto) 34.9, Monocytes (%) (Auto) 7.7 H, Eosinophils (%) (Auto) 0.2, Basophils (%) (Auto) 0.4, Neutrophils # (Auto) 2.9, Lymphocytes # (Auto) 1.8, Monocytes # (Auto) 0.4, Eosinophils # (Auto) 0.0, Basophils # (Auto) 0.0 06/25/18 13:48 Red Blood Count 3.77 L, Mean Corpuscular Volume 100.0 H, Mean Corpuscular Hemoglobin 33.7 H, Mean Corpuscular Hemoglobin Concent 33.7, Red Cell Distribution Width 14.6 H Microbiology Microbiology 06/25/18 Blood Culture, Received Pending 06/25/18 Blood Culture, Received Pending Plan / VTE VTE Prophylaxis Ordered?: Yes Plan Plan Rectal bleed - likely 2/2 lower GI etiology; - Patient has reported a rectal bleed over 1 week duration - Has described it as drips of blood and blood filling the toilet bowl - Currently patient was hypotensive in the ER; however has responded to IV fluid hydration - Her hemoglobin appears to be relatively at baseline - Will continue to trend hemoglobin - Will hold off on anticoagulation with Xarelto - Patient has had an NG tube placed in the emergency room. However, this has not revealed any significant bleeding; suspect bleeding source can be attributed to lower GI etiology Abdominal pain / Nausea & Vomiting - possibly 2/2 small bowel obstruction - Patient has reported abdominal pain for the last 3-4 weeks and is experiencing nausea and vomiting. Over last 2 weeks - No leukocytosis and remains afebrile - Physical does not reveal any significant abdominal tenderness - She does have a hernia that is reducible - NG tube has been placed and put on low intermittent suction - Surgery on consult; appreciate their input Lactic acidosis - possibly 2/2 hypovolemia, unlikely 2/2 sepsis - Patient has not expense any fevers and has not having any leukocytosis - Lactic acidosis has been improving with IV fluid hydration - Will continue with gentle IV fluid hydration - Will hold on antibiotic therapy Anasarca - etiology unclear - Imaging with evidence of bilateral pleural effusions and ascites - Patient has an albumin of 2.6 - Given patients hypotension will provide hydration until normotensive; then gentle hydration thereafter A. fib - EKG was reviewed; rate is relatively controlled without medication - Currently not on any rate control medications - Has been on Xarelto as an outpatient; however, this has been discontinued HTN - Patient takes furosemide as an outpatient; however this will be held Hypothyroidism Urinary retention - Will hold Oxybutynin Gastrointestinal prophylaxis - c/w Protonix daily DVT prophylaxis - Will start SCDs/ERIC Sales MD Jun 25, 2018 15:56
[2018-06-25] MEDS ORDERED: ACETAMINOPHEN 325 MG/10.15 ML UDC GT PRN (16:00)
[2018-06-25] MEDS ORDERED: ACETAMINOPHEN TAB 650MG DOSE (2X325MG) PO PRN (16:00)
[2018-06-25] MEDS ORDERED: NS 1,000 ML IV SCH (16:00)
[2018-06-25] MEDS: PANTOPRAZOLE 40MG INJ (PROTONIX) (C9113) IV SCH (17:32)
--- NOTE | 2018-06-25 19:54 | ECHO ---
DATE OF PROCEDURE: 06/25/2018 Date of : 1930 Age: 87 Gender: Female Height: 63 inches Weight: 119 pounds Body surface area: 1.55 meters squared Inpatient: ICU, room 3208 REFERRING PHYSICIAN: Dr. Lindsay INDICATION: Heart failure (unspecified). MEASUREMENTS: 2D measurements: RV: 3.8 cm LV: 4.0 cm Septum: 1.2 cm Posterior wall: 1.2 cm Aortic root: 3.2 cm LA: 4.0 cm LVEF: 65% Doppler measurements: AV: 2.0 meters per second LVOT: 0.6 meters per second LVOT diameter: 1.9 cm MV-E: 56 Early mitral deceleration time: 200 milliseconds E prime: 6.4, E/E prime ratio: 9.3 PV: 0. 8 meters per second Pulmonary artery acceleration time: 116 milliseconds RVSP: 30 mmHg IVC: 1.2 cm COMMENTS: Underlying atrial fibrillation with controlled ventricular response. No intraventricular conduction disturbance. M-mode and two-dimensional echocardiography was performed with pulsed, continuous wave, color flow and tissue Doppler studies. Borderline concentric left ventricular hypertrophy with normal wall motion. Mildly dilated left atrium with current Doppler estimated mean left atrial pressure upper limits of normal. Normal right heart chamber sizes and motion with Doppler evidence of borderline pulmonary hypertension. Normal inferior vena cava (IVC) size and collapse against an elevated central venous pressure. Three equal size aortic cusps that were moderately thickened with reduced cusp separation in keeping with no more than mild aortic stenosis. Very mild aortic insufficiency. Normal aortic root size. Mild degenerative changes of mitral valvular apparatus with adequate leaflet excursion and no posterior systolic buckling but mild insufficiency. No apparent intracardiac mass or pericardial effusion. Comparing the above test findings with those of October 2014, there did not appear to be a significant change.
--- NOTE | 2018-06-25 21:54 | ECGEPIP ---
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
[2018-06-25 22:02] LABS: HEMATOCRIT 35.8 % (36.0-47.0); HEMOGLOBIN 11.8 g/dl (12.0-15.5)
[2018-06-26] VITALS (8 sets, daily range): BP systolic 90–102; BP diastolic 53–68
[2018-06-26 05:07] LABS: BASO % 0.6 % (0.0-1.0); EOS % 1.1 % (0.0-3.0); HEMATOCRIT 36.2 % (36.0-47.0); HEMOGLOBIN 11.8 g/dl (12.0-15.5); LYMPH # 0.9 10^3/uL (1.5-4.5); LYMPH % 24.4 % (24.0-44.0); MEAN CORPUSCULAR HEMOGLOBIN 32.8 pg (27.0-33.0); MEAN CORPUSCULAR HGB CONC 32.6 g/dl (32.0-36.5); MEAN CORPUSCULAR VOLUME 100.6 fl (80.0-96.0); MONO # 0.6 10^3/uL (0.0-0.8); MONO % 15.8 % (0.0-5.0); NEUTROPHILS % 57.5 % (36.0-66.0); PLATELET COUNT, AUTOMATED 144 10^3/uL (150-450); WHITE BLOOD COUNT 3.5 10^3/uL (4.0-10.0)
[2018-06-26 05:39] LABS: ALBUMIN 1.7 GM/DL (3.2-5.2); ALT/SGPT 22 U/L (12-78); BILIRUBIN,TOTAL 0.9 MG/DL (0.2-1.0); BLOOD UREA NITROGEN 18 MG/DL (7-18); CALCIUM LEVEL 6.9 MG/DL (8.8-10.2); CARBON DIOXIDE LEVEL 14 MEQ/L (21-32); CHLORIDE LEVEL 109 MEQ/L (98-107); CREATININE FOR GFR 0.81 MG/DL (0.55-1.30); GLOMERULAR FILTRATION RATE > 60.0 (>32); GLUCOSE, FASTING 61 MG/DL (70-100); MAGNESIUM LEVEL 1.7 MG/DL (1.8-2.4); POTASSIUM SERUM 3.8 MEQ/L (3.5-5.1); SODIUM LEVEL 135 MEQ/L (136-145); TOTAL PROTEIN 4.2 GM/DL (6.4-8.2)
[2018-06-26] MEDS ORDERED: DEXTROSE 50% 50 ML SYRINGE IV STA ×2 (05:53→17:12)
[2018-06-26] MEDS ORDERED: MAG SULF 1GM/100ML (MAG RUN) 1 GM in APPROPRIATE DILUENT 1 EA IV ONE (08:00)
[2018-06-26] MEDS: PANTOPRAZOLE 40MG INJ (PROTONIX) (C9113) IV SCH (08:10)
[2018-06-26] MEDS ORDERED: LEVOTHYROXINE 100 MCG (0.1MG) VIAL IV SCH (09:00)
--- NOTE | 2018-06-26 10:05 | REP ---
KUB: Two views presented. History: Small bowel obstruction. Comparison study: April 30, 2018. Findings: There is some mild gaseous distension of the transverse and right colon. Stool is visible in nondilated rectum and sigmoid and descending colon. There is a dilated loop of small bowel in the left mid abdomen. NG tube is seen coiled within the gastric fundus. 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 Impression: Improved bowel gas pattern. One persistent loop of moderately dilated small bowel in the left mid abdomen. NG tube in the gastric fundus. Clips in the right upper quadrant. Electronically Signed by Epifanio Gonzales MD 06/26/2018 09:56 A
--- NOTE | 2018-06-26 10:12 | IPN ---
DATE: 06/26/2018 The patient overall has been stable overnight, although she asked for more pain medication this morning because of abdominal pain. She is blaming it on hernia but her hernia is easily reducible on her physical exam today. I can easily feel the fascial edges and easily reduce this but her abdomen definitely is much less distended than it was yesterday. She has had a bowel movement. She is still having nasogastric tube output, but with her abdominal distension I do have concerns that she is not completely resolved her obstruction at this point. IMPRESSION AND PLAN: The patient has a bowel obstruction, most likely small bowel, might be recurrent and secondary to adhesions. She may need intervention; however, I still feel that this is unlikely to be the etiology for her pleural effusions and her significant ascites that are present. At this point, we will see how she does with the x-rays. If this shows a resolving small-bowel obstruction we may consider a paracentesis / pleural tap if these seem to be persistent on followup films. In any case, at this point, we will keep her nothing by mouth except sips and chips and check KUB, and we will see how this should shows progression of her small bowel obstruction. If this is resolved on x-rays, then discontinuing nasogastric tube may be a reasonable next up for her.
--- NOTE | 2018-06-26 11:33 | IPNPDOC ---
Text Note Date of Service The patient was seen on 06/26/18. NOTE Subjective: Patient is an 87-year-old female with a PMHx of A. fib (on Xarelto), HTN, Hypothyroidism, Urinary retention presented to the ER after expressing rectal bleeding over 1 week duration. Patient has noted that she has filled the toilet bowl with blood. Patient is a poor historian. Information was gathered from her son, Vincent Del Rio. . He is indicated that patient has been complaining of abdominal pain. In the emergency room, patient had received imaging that was consistent with possible small bowel obstruction. Patient was admitted to hospitalist service for further evaluation and treatment. Surgery was called on consultation. Patient was seen and examined at the bedside. Currently has no new complaints. Reports improvement in abdominal pain. Denies any nausea / vomiting. Denies any respiratory distress, cough or CP. Denies any discomfort with urination. Objective: Vitals (See below) General: Lying in bed, no acute distress, comfortable, Awake / Alert HEENT: NC, AT, + NG tube CVS: RRR, +S1S2 Lungs: Diminished breath sounds b/l, no appreciable crackles / wheezing / rales Abdomen: Soft, ND, NT Extremities: 2+ pitting edema, - Calf tenderness Assessment and plan: s/p Abdominal pain / Nausea & Vomiting; possibly 2/2 small bowel obstruction - Clinically patient notes that she's no longer experiencing abdominal pain or nausea/vomiting - No leukocytosis and remains afebrile - Physical without any significant abdominal tenderness; hernia that is reducible - CT abdomen / pelvis 06/25: Persisting marked small bowel distension with multiple air-fluid levels , similar to 04/28/2018, compatible with ongoing small bowel obstruction. Small bowel feces sign compatible with stasis. The abdominal ascites has significantly increased. There is anasarca as an interval change. Midline anterior abdominal wall hernia is again identified. Bilateral pleural effusions have increased in size. Cardiomegaly, unchanged. Grade 4 compression deformity of T12, unchanged. - XR Abdomen 06/26: Improved bowel gas pattern. One persistent loop of moderately dilated small bowel in the left mid abdomen. NG tube in the gastric fundus. Clips in the right upper quadrant. - NG tube has been placed and put on low intermittent suction - Surgery on consult; appreciate their input s/p Rectal bleed - likely 2/2 lower GI etiology - likely 2/2 hemorrhoidal bleed - Patient has reported a rectal bleed over 1 week duration; described as drips of blood - Currently hemodynamically stable - Hg stable; no transfusions required - Will hold off on anticoagulation with Xarelto Anasarca - etiology unclear - Imaging with evidence of bilateral pleural effusions and ascites - Patient has an albumin of 2.6 - Given patients hypotension will provide hydration until normotensive; then gentle hydration thereafter s/p Lactic acidosis - possibly 2/2 hypovolemia, unlikely 2/2 sepsis - s/p IV fluids A. fib - EKG was reviewed; rate is relatively controlled without medication - Currently not on any rate control medications - Has been on Xarelto as an outpatient; however, this has been discontinued HTN - Patient takes furosemide as an outpatient; however this will be held Hypothyroidism - Will start Levothyroxine IV Urinary retention - c/w Oxybutynin Gastrointestinal prophylaxis - c/w Protonix daily DVT prophylaxis - c/w SCDs/TEDs VS,Fishbone, I+O VS, Fishbone, I+O Laboratory Tests 06/25/18 13:48 Red Blood Count 3.77 L, Mean Corpuscular Volume 100.0 H, Mean Corpuscular Hemoglobin 33.7 H, Mean Corpuscular Hemoglobin Concent 33.7, Red Cell Distribution Width 14.6 H 06/25/18 21:53 06/26/18 04:49 Red Blood Count 3.60 L, Mean Corpuscular Volume 100.6 H, Mean Corpuscular Hemoglobin 32.8, Mean Corpuscular Hemoglobin Concent 32.6, Red Cell Distribution Width 14.6 H, Neutrophils (%) (Auto) 57.5, Lymphocytes (%) (Auto) 24.4, Monocytes (%) (Auto) 15.8 H, Eosinophils (%) (Auto) 1.1, Basophils (%) (Auto) 0.6, Neutrophils # (Auto) 2.0, Lymphocytes # (Auto) 0.9 L, Monocytes # (Auto) 0.6, Eosinophils # (Auto) 0.0, Basophils # (Auto) 0.0, Calcium Level 6.9 L, Aspartate Amino Transf (AST/SGOT) 34, Alanine Aminotransferase (ALT/SGPT) 22, Alkaline Phosphatase 238 H, Total Bilirubin 0.9, Total Protein 4.2 L, Albumin 1.7 #L Vital Signs Date Time Temp Pulse Resp B/P (MAP) Pulse Ox O2 Delivery O2 Flow Rate FiO2 06/26/18 04:00 97.2 111 16 102/62 (75) 94 06/25/18 12:39 Room Air I&O- Last 24 Hours up to 6 AM 06/26/18 06:00 Intake Total 1780 ml Output Total 550 ml Balance 1230 ml ERIC BANKS MD Jun 26, 2018 11:33
[2018-06-26] MEDS: oxyBUTYnin *DITROPAN XL* 5 MG TABCR PO SCH (13:08)
[2018-06-26] MEDS ORDERED: D5W/0.45% SODIUM CHLORIDE 500 ML IV ONE (17:30)
[2018-06-27] VITALS (7 sets, daily range): BP systolic 88–100; BP diastolic 58–70
[2018-06-27 05:58] LABS: BASO % 0.5 % (0.0-1.0); EOS % 0.8 % (0.0-3.0); HEMOGLOBIN 11.6 g/dl (12.0-15.5); LYMPH # 1.3 10^3/uL (1.5-4.5); LYMPH % 33.5 % (24.0-44.0); MEAN CORPUSCULAR HEMOGLOBIN 32.9 pg (27.0-33.0); MEAN CORPUSCULAR HGB CONC 33.1 g/dl (32.0-36.5); MEAN CORPUSCULAR VOLUME 99.2 fl (80.0-96.0); MONO # 0.6 10^3/uL (0.0-0.8); MONO % 16.1 % (0.0-5.0); NEUTROPHILS # 1.9 10^3/uL (1.8-7.7); NEUTROPHILS % 48.6 % (36.0-66.0); PLATELET COUNT, AUTOMATED 142 10^3/uL (150-450); RED BLOOD COUNT 3.53 10^6/uL (4.00-5.40)
[2018-06-27] MEDS ORDERED: LEVOTHYROXINE 100 MCG (0.1MG) VIAL IV SCH (06:00)
[2018-06-27 06:23] LABS: ALBUMIN 2.1 GM/DL (3.2-5.2); ALT/SGPT 20 U/L (12-78); BILIRUBIN,TOTAL 0.9 MG/DL (0.2-1.0); BLOOD UREA NITROGEN 18 MG/DL (7-18); CALCIUM LEVEL 6.8 MG/DL (8.8-10.2); CARBON DIOXIDE LEVEL 19 MEQ/L (21-32); CHLORIDE LEVEL 108 MEQ/L (98-107); CREATININE FOR GFR 0.87 MG/DL (0.55-1.30); GLOMERULAR FILTRATION RATE > 60.0 (>32); GLUCOSE, FASTING 83 MG/DL (70-100); POTASSIUM SERUM 3.6 MEQ/L (3.5-5.1); SODIUM LEVEL 137 MEQ/L (136-145); TOTAL PROTEIN 4.1 GM/DL (6.4-8.2)
[2018-06-27] MEDS: PANTOPRAZOLE 40MG INJ (PROTONIX) (C9113) IV SCH (08:03)
[2018-06-27] MEDS: oxyBUTYnin *DITROPAN XL* 5 MG TABCR PO SCH (08:03)
--- NOTE | 2018-06-27 10:55 | IPNPDOC ---
Text Note Date of Service The patient was seen on 06/27/18. NOTE Subjective: Patient is an 87-year-old female with a PMHx of A. fib (on Xarelto), HTN, Hypothyroidism, Urinary retention presented to the ER after expressing rectal bleeding over 1 week duration. Patient has noted that she has filled the toilet bowl with blood. Patient is a poor historian. Information was gathered from her son, Vincent Del Rio. . He is indicated that patient has been complaining of abdominal pain. In the emergency room, patient had received imaging that was consistent with possible small bowel obstruction. Patient was admitted to hospitalist service for further evaluation and treatment. Surgery was called on consultation. Patient was seen and examined at the bedside. . She reported that she's feeling well. She notes that she had eaten a lot this morning and feels full. She denies any nausea or vomiting. Reports that her belly just feels full but not tender. Has been trying to have a bowel movement, however unsuccessful. Denies chest pain, shortness of breath or palpitations. Objective: Vitals (See below) General: Lying in bed, no acute distress, comfortable, Awake / Alert HEENT: NC, AT, + NG tube CVS: RRR, +S1S2 Lungs: Again, there appears to be diminished breath sounds at bilateral bases. No evidence of rhonchi, rales or wheezing Abdomen: Abdomen is soft, without any distention or tenderness, there is a reducible hernia Extremities: There is 1+ pitting edema bilaterally, - Calf tenderness Assessment and plan: s/p Abdominal pain / Nausea & Vomiting; possibly 2/2 small bowel obstruction - Clinically patient notes that she's no longer experiencing abdominal pain or nausea/vomiting - No leukocytosis and remains afebrile - Physical without any significant abdominal tenderness; hernia that is reducible - CT abdomen / pelvis 06/25: Persisting marked small bowel distension with multiple air-fluid levels , similar to 04/28/2018, compatible with ongoing small bowel obstruction. Small bowel feces sign compatible with stasis. The abdominal ascites has significantly increased. There is anasarca as an interval change. Midline anterior abdominal wall hernia is again identified. Bilateral pleural effusions have increased in size. Cardiomegaly, unchanged. Grade 4 compression deformity of T12, unchanged. - XR Abdomen 06/26: Improved bowel gas pattern. One persistent loop of moderately dilated small bowel in the left mid abdomen. NG tube in the gastric fundus. Clips in the right upper quadrant. - s/p NG tube; diet will continue to be advanced as per Surgery - Surgery on consult; appreciate their input s/p Rectal bleed - likely 2/2 lower GI etiology - likely 2/2 hemorrhoidal bleed - Patient has reported a rectal bleed over 1 week duration; described as drips of blood - Currently hemodynamically stable - Hg stable; no transfusions required - Will hold off on anticoagulation with Xarelto - Will discuss with patient and family about risks and benefits of anticoagulation Anasarca - etiology unclear; possible underlying malignancy is in the differential - Imaging with evidence of bilateral pleural effusions and ascites - Patient has an albumin of 2.6 - Given patients hypotension will provide hydration until normotensive; then gentle hydration thereafter - Will discuss with family about potential modalities for investigation s/p Lactic acidosis - possibly 2/2 hypovolemia, unlikely 2/2 sepsis - s/p IV fluids A. fib - EKG was reviewed; rate is relatively controlled without medication - Currently not on any rate control medications - Has been on Xarelto as an outpatient; however, this has been HELD HTN - Patient takes furosemide as an outpatient; however this will be held Hypothyroidism - Will resume levothyroxine by mouth Urinary retention - c/w Oxybutynin Gastrointestinal prophylaxis - c/w Protonix daily DVT prophylaxis - c/w SCDs/TEDs Disposition: - Will c/w Physical therapy VS,Fishbone, I+O VS, Fishbone, I+O Laboratory Tests 06/27/18 05:30 Red Blood Count 3.53 L, Mean Corpuscular Volume 99.2 H, Mean Corpuscular Hemoglobin 32.9, Mean Corpuscular Hemoglobin Concent 33.1, Red Cell Distribution Width 14.7 H, Neutrophils (%) (Auto) 48.6, Lymphocytes (%) (Auto) 33.5, Monocytes (%) (Auto) 16.1 H, Eosinophils (%) (Auto) 0.8, Basophils (%) (Auto) 0.5, Neutrophils # (Auto) 1.9, Lymphocytes # (Auto) 1.3 L, Monocytes # (Auto) 0.6, Eosinophils # (Auto) 0.0, Basophils # (Auto) 0.0, Calcium Level 6.8 L, Aspartate Amino Transf (AST/SGOT) 20, Alanine Aminotransferase (ALT/SGPT) 20, Alkaline Phosphatase 224 H, Total Bilirubin 0.9, Total Protein 4.1 L, Albumin 2.1 #L Vital Signs Date Time Temp Pulse Resp B/P (MAP) Pulse Ox O2 Delivery O2 Flow Rate FiO2 06/27/18 10:00 94/60 (71) 06/27/18 08:00 97.2 88 16 91 06/25/18 12:39 Room Air I&O- Last 24 Hours up to 6 AM 06/27/18 06:00 Intake Total 1060 ml Output Total 350 ml Balance 710 ml ERIC BANKS MD Jun 27, 2018 10:55
--- NOTE | 2018-06-27 11:27 | IPN ---
DATE OF VISIT: 06/27/2018 The patient has had a couple bowel movements this morning and overall seems to be resolving her bowel obstruction issue from an ins and outs standpoint. She has not had any nausea. She is tolerating clear liquids. From a vital signs standpoint, she has still been afebrile and has had a normal white count. Overall seems to be making some slow, but progressive improvement in her general status. She does have this incisional hernia, easily reducible, nontender, although she states that it does bother her, but I am not sure if that is the etiology of her discomfort or if it is this crampy abdominal pain. What I saw was a great deal of air she had on her study that was in her colon and it may be just some crampy abdominal pain that has been uncomfortable for her. In any case, she seems to be resolving her small bowel obstruction at this time and will see how she does with a full liquid diet today and possibly increase her to a regular diet tomorrow. Dr. Beck will be back tomorrow who has seen her in the past and I will defer to his judgment should he feel that inpatient workup is warranted for the rectal bleeding issue or whether he would prefer to proceed with this as an outpatient.
[2018-06-27] MEDS: CYANOCOBALAMIN 500 MCG TAB PO SCH (12:18)
[2018-06-28] MEDS: LEVOTHYROXINE 75MCG TABLET (0.075MG) PO SCH (05:47)
[2018-06-28 06:00] VITALS: BP 96/60
[2018-06-28 06:30] LABS: BASO % 0.2 % (0.0-1.0); EOS % 0.7 % (0.0-3.0); HEMATOCRIT 33.3 % (36.0-47.0); HEMOGLOBIN 11.2 g/dl (12.0-15.5); LYMPH # 1.8 10^3/uL (1.5-4.5); LYMPH % 42.5 % (24.0-44.0); MEAN CORPUSCULAR HEMOGLOBIN 32.9 pg (27.0-33.0); MEAN CORPUSCULAR HGB CONC 33.6 g/dl (32.0-36.5); MEAN CORPUSCULAR VOLUME 97.9 fl (80.0-96.0); MONO # 0.4 10^3/uL (0.0-0.8); MONO % 10.3 % (0.0-5.0); NEUTROPHILS % 46.1 % (36.0-66.0); PLATELET COUNT, AUTOMATED 132 10^3/uL (150-450); WHITE BLOOD COUNT 4.3 10^3/uL (4.0-10.0)
[2018-06-28 06:56] LABS: BILIRUBIN,TOTAL 0.7 MG/DL (0.2-1.0); CREATININE FOR GFR 0.94 MG/DL (0.55-1.30); GLOMERULAR FILTRATION RATE 59.7 (>32); MAGNESIUM LEVEL 1.9 MG/DL (1.8-2.4); POTASSIUM SERUM 3.6 MEQ/L (3.5-5.1)
[2018-06-28] MEDS: CYANOCOBALAMIN 500 MCG TAB PO SCH (09:59)
[2018-06-28] MEDS: PANTOPRAZOLE 40MG INJ (PROTONIX) (C9113) IV SCH (09:59)
[2018-06-28] MEDS: oxyBUTYnin *DITROPAN XL* 5 MG TABCR PO SCH (10:00)
--- NOTE | 2018-06-28 11:20 | IPNPDOC ---
Text Note Date of Service The patient was seen on 06/28/18. NOTE Subjective: Patient is an 87-year-old female with a PMHx of A. fib (on Xarelto), HTN, Hypothyroidism, Urinary retention presented to the ER after expressing rectal bleeding over 1 week duration. Patient has noted that she has filled the toilet bowl with blood. Patient is a poor historian. Information was gathered from her son, Vincent Del Rio. . He is indicated that patient has been complaining of abdominal pain. In the emergency room, patient had received imaging that was consistent with possible small bowel obstruction. Patient was admitted to hospitalist service for further evaluation and treatment. Surgery was called on consultation. Patient was seen and examined at the bedside. Patient reports that she's feeling well. Denies any nausea or vomiting. Has been tolerating her oral diet. Denies any abdominal pain. As been expressing bowel movements. She denies chest pain, shortness of breath or palpitations. Patient has been in bed throughout her hospital stay. I have advised her that we will begin physical therapy today. Objective: Vitals (See below) General: Lying in bed, no acute distress, comfortable, Awake / Alert HEENT: NC, AT, CVS: +S1S2 Lungs: Diminished sounds at bilateral bases. No evidence of rhonchi, rales or wheezing Abdomen: Soft without distention or tenderness Extremities: Persistent 1+ pitting edema b/l, - Calf tenderness Assessment and plan: s/p Abdominal pain / Nausea & Vomiting; possibly 2/2 small bowel obstruction - Clinically patient notes that she's no longer experiencing abdominal pain or nausea/vomiting - No leukocytosis and remains afebrile - Physical without any significant abdominal tenderness; hernia that is reducible - CT abdomen / pelvis 06/25: Persisting marked small bowel distension with multiple air-fluid levels , similar to 04/28/2018, compatible with ongoing small bowel obstruction. Small bowel feces sign compatible with stasis. The abdominal ascites has significantly increased. There is anasarca as an interval change. Midline anterior abdominal wall hernia is again identified. Bilateral pleural effusions have increased in size. Cardiomegaly, unchanged. Grade 4 compression deformity of T12, unchanged. - XR Abdomen 06/26: Improved bowel gas pattern. One persistent loop of moderately dilated small bowel in the left mid abdomen. NG tube in the gastric fundus. Clips in the right upper quadrant. - s/p NG tube - diet has been fully advanced by Surgery - Surgery on consult; appreciate their input s/p Rectal bleed - likely 2/2 lower GI etiology - likely 2/2 hemorrhoidal bleed - Patient has reported a rectal bleed over 1 week duration; described as drips of blood - Currently hemodynamically stable - Hg stable; no transfusions required - Will hold off on anticoagulation with Xarelto - Will discuss with Surgery about potential endoscopy/colonoscopy - Discussed with son / patient risks and benefits of anticoagulation; they are willing to try anticoagulation again - Discussed with pharmacy; dose of Xarelto reduced to 15mg daily - will reattempt while inpatient Anasarca - etiology unclear; possible underlying malignancy is in the differential - Imaging with evidence of bilateral pleural effusions and ascites - Patient has an albumin of 2.6 - s/p IV fluids - Discussed with son about potential for malignancy and need for evaluation of abdominal fluid and/or further imaging; - Currently patient and son do not want to pursue any additional testing for evaluation of malignancy - Reported "wouldn't want that" at her age s/p Lactic acidosis - possibly 2/2 hypovolemia, unlikely 2/2 sepsis - s/p IV fluids A. fib - EKG was reviewed; rate is relatively controlled without medication - Currently not on any rate control medications - Has been on Xarelto as an outpatient; however, this has been HELD HTN - Patient takes furosemide as an outpatient; however this will be held Hypothyroidism - c/w levothyroxine Urinary retention - c/w Oxybutynin Gastrointestinal prophylaxis - c/w Protonix daily DVT prophylaxis - c/w SCDs/TEDs Disposition: - Will c/w Physical therapy VS,Nory, I+O VS, Nory, I+O Laboratory Tests 06/28/18 05:46 Red Blood Count 3.40 L, Mean Corpuscular Volume 97.9 H, Mean Corpuscular Hemoglobin 32.9, Mean Corpuscular Hemoglobin Concent 33.6, Red Cell Distribution Width 14.6 H, Neutrophils (%) (Auto) 46.1, Lymphocytes (%) (Auto) 42.5, Monocytes (%) (Auto) 10.3 H, Eosinophils (%) (Auto) 0.7, Basophils (%) (Auto) 0.2, Neutrophils # (Auto) 2.0, Lymphocytes # (Auto) 1.8, Monocytes # (Auto) 0.4, Eosinophils # (Auto) 0.0, Basophils # (Auto) 0.0, Calcium Level 7.0 L, Aspartate Amino Transf (AST/SGOT) 17, Alanine Aminotransferase (ALT/SGPT) 18, Alkaline Phosphatase 238 H, Total Bilirubin 0.7, Total Protein 4.0 L, Albumin 2.0 L Vital Signs Date Time Temp Pulse Resp B/P (MAP) Pulse Ox O2 Delivery O2 Flow Rate FiO2 06/28/18 06:00 97.0 79 18 96/60 (72) 97 06/25/18 12:39 Room Air I&O- Last 24 Hours up to 6 AM 06/28/18 06:00 Intake Total 1140 ml Output Total 20 ml Balance 1120 ml ERIC BANKS MD Jun 28, 2018 11:20
[2018-06-28 14:00] VITALS: BP 99/57
[2018-06-28] MEDS: RIVAROXABAN 15 MG TAB (XARELTO) PO SCH (17:47)
[2018-06-28 22:00] VITALS: BP 96/60
[2018-06-29] MEDS: LEVOTHYROXINE 75MCG TABLET (0.075MG) PO SCH (05:51)
[2018-06-29 06:00] VITALS: BP 95/60
[2018-06-29 06:11] LABS: BASO % 0.2 % (0.0-1.0); EOS % 0.7 % (0.0-3.0); HEMATOCRIT 33.7 % (36.0-47.0); HEMOGLOBIN 11.5 g/dl (12.0-15.5); LYMPH # 1.7 10^3/uL (1.5-4.5); LYMPH % 41.6 % (24.0-44.0); MEAN CORPUSCULAR HEMOGLOBIN 32.8 pg (27.0-33.0); MEAN CORPUSCULAR HGB CONC 34.1 g/dl (32.0-36.5); MONO # 0.4 10^3/uL (0.0-0.8); MONO % 9.4 % (0.0-5.0); NEUTROPHILS # 1.9 10^3/uL (1.8-7.7); NEUTROPHILS % 47.6 % (36.0-66.0); PLATELET COUNT, AUTOMATED 147 10^3/uL (150-450); RED BLOOD COUNT 3.51 10^6/uL (4.00-5.40)
[2018-06-29 06:33] LABS: ALT/SGPT 17 U/L (12-78); BILIRUBIN,TOTAL 0.8 MG/DL (0.2-1.0); BLOOD UREA NITROGEN 17 MG/DL (7-18); CARBON DIOXIDE LEVEL 23 MEQ/L (21-32); CHLORIDE LEVEL 107 MEQ/L (98-107); GLOMERULAR FILTRATION RATE > 60.0 (>32); GLUCOSE, FASTING 80 MG/DL (70-100); MAGNESIUM LEVEL 1.9 MG/DL (1.8-2.4); POTASSIUM SERUM 3.9 MEQ/L (3.5-5.1); SODIUM LEVEL 135 MEQ/L (136-145); TOTAL PROTEIN 3.8 GM/DL (6.4-8.2)
[2018-06-29 08:00] VITALS: BP 90/58
[2018-06-29] MEDS: oxyBUTYnin *DITROPAN XL* 5 MG TABCR PO SCH (09:44)
[2018-06-29] MEDS: CYANOCOBALAMIN 500 MCG TAB PO SCH (09:45)
[2018-06-29] MEDS: PANTOPRAZOLE 40MG TAB (PROTONIX) PO SCH (09:45)
--- NOTE | 2018-06-29 13:06 | IPNPDOC ---
Date Seen The patient was seen on 06/29/18. Progress Note Subjective: Patient was seen and examined at the bedside. Pt has been tolerating her diet, and has been cooperative with physical therapy. Per RN pt has had two small maroon colored stools with unchanged hemoglobin hematocrit, and no c/o sob, chest pain,pressure , tightness, LYNCH, or dizziness. on xarelto for Afib. Objective: Vitals (See below) General: Lying in bed, no acute distress, comfortable, Awake / Alert HEENT: NC, AT, CVS: +S1S2 Lungs: Diminished sounds at bilateral bases. No evidence of rhonchi, rales or wheezing Abdomen: Soft without distention or tenderness Extremities: Persistent 1+ pitting edema b/l, - Calf tenderness Assessment and plan:Patient is an 87-year-old female with a PMHx of A. fib (on Xarelto), HTN, Hypothyroidism, Urinary retention presented to the ER after expressing rectal bleeding over 1 week duration. Patient has noted that she has filled the toilet bowl with blood. Patient is a poor historian. Information was gathered from her son, Vincent Del Rio. . He is indicated that patient has been complaining of abdominal pain. In the emergency room, patient had received imaging that was consistent with possible small bowel obstruction. Patient was admitted to hospitalist service for further evaluation and treatment. Surgery was called on consultation. s/p Abdominal pain / Nausea & Vomiting; possibly 2/2 small bowel obstruction - Clinically patient notes that she's no longer experiencing abdominal pain or nausea/vomiting - No leukocytosis and remains afebrile - Physical without any significant abdominal tenderness; hernia that is re ducible - CT abdomen / pelvis 06/25: Persisting marked small bowel distension with multiple air-fluid levels , similar to 04/28/2018, compatible with ongoing small bowel obstruction. Small bowel feces sign compatible with stasis. The abdominal ascites has significantly increased. There is anasarca as an interval change. Midline anterior abdominal wall hernia is again identified. Bilateral pleural effusions have increased in size. Cardiomegaly, unchanged. Grade 4 compression deformity of T12, unchanged. - XR Abdomen 06/26: Improved bowel gas pattern. One persistent loop of moderately dilated small bowel in the left mid abdomen. NG tube in the gastric fundus. Clips in the right upper quadrant. - s/p NG tube - diet has been fully advanced by Surgery - Surgery on consult; appreciate their input s/p Rectal bleed - likely 2/2 lower GI etiology - likely 2/2 hemorrhoidal bleed - Patient has reported a rectal bleed over 1 week duration; described as drips of blood - Currently hemodynamically stable - Hg stable; no transfusions required -vitals remain stable, and no immediate plans for colonoscopy. -will monitor H&H and clinically. Anasarca - etiology unclear; possible underlying malignancy is in the differential - Imaging with evidence of bilateral pleural effusions and ascites - Patient has an albumin of 2.6 - s/p IV fluids - Discussed with son about potential for malignancy and need for evaluation of abdominal fluid and/or further imaging; - Currently patient and son do not want to pursue any additional testing for evaluation of malignancy - Reported "wouldn't want that" at her age s/p Lactic acidosis - possibly 2/2 hypovolemia, unlikely 2/2 sepsis - s/p IV fluids A. fib - EKG was reviewed; rate is relatively controlled without medication - Currently not on any rate control medications - Has been on Xarelto as an outpatient; however, this has been HELD HTN - Patient takes furosemide as an outpatient; however this will be held Hypothyroidism - c/w levothyroxine Urinary retention - c/w Oxybutynin Gastrointestinal prophylaxis - c/w Protonix daily DVT prophylaxis - c/w SCDs/TEDs Disposition: - Will c/w Physical therapy VS, I&O, 24H, Fishbone Vital Signs/I&O Vital Signs Date Time Temp Pulse Resp B/P (MAP) Pulse Ox O2 Delivery O2 Flow Rate FiO2 06/29/18 08:00 97.2 76 18 90/58 (69) 93 06/25/18 12:39 Room Air I&O- Last 24 Hours up to 6 AM 06/29/18 05:59 Intake Total 740 ml Output Total 0 ml Balance 740 ml Laboratory Data 24H LABS Laboratory Tests 2 06/29/18 05:35: Immature Granulocyte % (Auto) 0.5, White Blood Count 4.0, Red Blood Count 3.51L, Hemoglobin 11.5L, Hematocrit 33.7L, Mean Corpuscular Volume 96.0, Mean Corpuscular Hemoglobin 32.8, Mean Corpuscular Hemoglobin Concent 34.1, Red Cell Distribution Width 14.6H, Platelet Count 147L, Neutrophils (%) (Auto) 47.6, Lymphocytes (%) (Auto) 41.6, Monocytes (%) (Auto) 9.4H, Eosinophils (%) (Auto) 0.7, Basophils (%) (Auto) 0.2, Neutrophils # (Auto) 1.9, Lymphocytes # (Auto) 1.7, Monocytes # (Auto) 0.4, Eosinophils # (Auto) 0.0, Basophils # (Auto) 0.0, Nucleated Red Blood Cells % (auto) 0.0, Anion Gap 5L, Glomerular Filtration Rate > 60.0, Blood Urea Nitrogen 17, Creatinine 0.80, Sodium Level 135L, Potassium Level 3.9, Chloride Level 107, Carbon Dioxide Level 23, Calcium Level 7.0L, Aspartate Amino Transf (AST/SGOT) 14, Alanine Aminotransferase (ALT/SGPT) 17, Alkaline Phosphatase 216H, Total Bilirubin 0.8, Total Protein 3.8L, Albumin 2.0L, Magnesium Level 1.9, Albumin/Globulin Ratio 1.11 CBC/BMP Laboratory Tests 06/29/18 05:35 Red Blood Count 3.51 L, Mean Corpuscular Volume 96.0, Mean Corpuscular Hemoglobin 32.8, Mean Corpuscular Hemoglobin Concent 34.1, Red Cell Distribution Width 14.6 H, Neutrophils (%) (Auto) 47.6, Lymphocytes (%) (Auto) 41.6, Monocytes (%) (Auto) 9.4 H, Eosinophils (%) (Auto) 0.7, Basophils (%) (Auto) 0.2, Neutrophils # (Auto) 1.9, Lymphocytes # (Auto) 1.7, Monocytes # (Auto) 0.4, Eosinophils # (Auto) 0.0, Basophils # (Auto) 0.0, Calcium Level 7.0 L, Aspartate Amino Transf (AST/SGOT) 14, Alanine Aminotransferase (ALT/SGPT) 17, Alkaline Phosphatase 216 H, Total Bilirubin 0.8, Total Protein 3.8 L, Albumin 2.0 L Microbiology Microbiology 06/25/18 Blood Culture - Preliminary, Resulted No Growth after 72 hours. All specime... 06/25/18 Blood Culture - Preliminary, Resulted No Growth after 72 hours. All specime... MOMO BETTS MD Jun 29, 2018 13:06
[2018-06-29 14:00] VITALS: BP_SYST 118; BP_SYST 92; BP_DIAS 62; BP_DIAS 70
[2018-06-29 18:11] LABS: HEMATOCRIT 35.2 % (36.0-47.0); HEMOGLOBIN 11.8 g/dl (12.0-15.5)
[2018-06-29] MEDS: ACETAMINOPHEN TAB 650MG DOSE (2X325MG) PO PRN (18:58)
[2018-06-29] MEDS: RIVAROXABAN 15 MG TAB (XARELTO) PO SCH (18:58)
[2018-06-29 22:00] VITALS: BP 103/60
[2018-06-30 01:16] LABS: HEMATOCRIT 34.9 % (36.0-47.0); HEMOGLOBIN 11.9 g/dl (12.0-15.5)
[2018-06-30] MEDS: LEVOTHYROXINE 75MCG TABLET (0.075MG) PO SCH (05:53)
[2018-06-30 06:00] VITALS: BP 138/62
[2018-06-30 06:46] LABS: BASO % 0.2 % (0.0-1.0); EOS % 0.5 % (0.0-3.0); HEMATOCRIT 34.3 % (36.0-47.0); HEMOGLOBIN 11.8 g/dl (12.0-15.5); LYMPH # 2.2 10^3/uL (1.5-4.5); LYMPH % 40.4 % (24.0-44.0); MEAN CORPUSCULAR HEMOGLOBIN 32.7 pg (27.0-33.0); MEAN CORPUSCULAR HGB CONC 34.4 g/dl (32.0-36.5); MONO # 0.6 10^3/uL (0.0-0.8); MONO % 11.5 % (0.0-5.0); NEUTROPHILS # 2.6 10^3/uL (1.8-7.7); NEUTROPHILS % 46.9 % (36.0-66.0); PLATELET COUNT, AUTOMATED 156 10^3/uL (150-450); RED BLOOD COUNT 3.61 10^6/uL (4.00-5.40); WHITE BLOOD COUNT 5.5 10^3/uL (4.0-10.0)
[2018-06-30 07:11] LABS: ALT/SGPT 19 U/L (12-78); BLOOD UREA NITROGEN 18 MG/DL (7-18); CALCIUM LEVEL 7.1 MG/DL (8.8-10.2); CARBON DIOXIDE LEVEL 20 MEQ/L (21-32); CHLORIDE LEVEL 105 MEQ/L (98-107); CREATININE FOR GFR 0.74 MG/DL (0.55-1.30); GLOMERULAR FILTRATION RATE > 60.0 (>32); GLUCOSE, FASTING 77 MG/DL (70-100); MAGNESIUM LEVEL 2.1 MG/DL (1.8-2.4); SODIUM LEVEL 133 MEQ/L (136-145); TOTAL PROTEIN 4.2 GM/DL (6.4-8.2)
--- NOTE | 2018-06-30 08:04 | REP ---
Supine abdomen, single AP view: Comparison is 06/26/2018. There are markedly distended small bowel loops that have increased in diameter. No colonic distension. There is intraluminal residue in the left upper quadrant likely in the stomach or in the colonic splenic flexure. There are right upper quadrant surgical clips, unchanged. The Impression: Markedly distended small bowel loops that have increased in diameter. Electronically Signed by Lebron Murphy MD 06/30/2018 07:55 A
[2018-06-30] MEDS: CYANOCOBALAMIN 500 MCG TAB PO SCH (08:42)
[2018-06-30] MEDS: PANTOPRAZOLE 40MG TAB (PROTONIX) PO SCH (08:42)
[2018-06-30] MEDS: oxyBUTYnin *DITROPAN XL* 5 MG TABCR PO SCH (08:42)
[2018-06-30 12:10] LABS: HEMATOCRIT 35.9 % (36.0-47.0); HEMOGLOBIN 12.1 g/dl (12.0-15.5)
[2018-06-30 14:00] VITALS: BP 137/66
[2018-06-30] MEDS: ACETAMINOPHEN TAB 650MG DOSE (2X325MG) PO PRN (14:42)
--- NOTE | 2018-06-30 16:21 | IPNPDOC ---
Date Seen The patient was seen on 06/30/18. Progress Note Subjective: Patient was seen and examined at the bedside. Pt has been tolerating her diet, and has been cooperative with physical therapy. Pt continues to have hemorrhoidal bleed with unchanged hemoglobin hematocrit, and no c/o sob, chest pain,pressure , tightness, LYNCH, or dizziness. on xarelto for Afib. no plans for invasive or futher testing due to age. Objective: Vitals (See below) General: Lying in bed, no acute distress, comfortable, Awake / Alert HEENT: NC, AT, CVS: +S1S2 Lungs: Diminished sounds at bilateral bases. No evidence of rhonchi, rales or wheezing Abdomen: Soft without distention or tenderness Extremities: Persistent 1+ pitting edema b/l, - Calf tenderness Assessment and plan:Patient is an 87-year-old female with a PMHx of A. fib (on Xarelto), HTN, Hypothyroidism, Urinary retention presented to the ER after expressing rectal bleeding over 1 week duration. Patient has noted that she has filled the toilet bowl with blood. Patient is a poor historian. I nformation was gathered from her son, Vincent Del Rio. . He is indicated that patient has been complaining of abdominal pain. In the emergency room, patient had received imaging that was consistent with possible small bowel obstruction. Patient was admitted to hospitalist service for further evaluation and treatment. Surgery was called on consultation. s/p Abdominal pain / Nausea & Vomiting; possibly 2/2 small bowel obstruction - Clinically patient notes that she's no longer experiencing abdominal pain or nausea/vomiting - No leukocytosis and remains afebrile - Physical without any significant abdominal tenderness; hernia that is reducible - CT abdomen / pelvis 06/25: Persisting marked small bowel distension with multiple air-fluid levels , similar to 04/28/2018, compatible with ongoing small bowel obstruction. Small bowel feces sign compatible with stasis. The abdominal ascites has significantly increased. There is anasarca as an interval change. Midline anterior abdominal wall hernia is again identified. Bilateral pleural effusions have increased in size. Cardiomegaly, unchanged. Grade 4 compression deformity of T12, unchanged. - XR Abdomen 06/26: Improved bowel gas pattern. One persistent loop of moderately dilated small bowel in the left mid abdomen. NG tube in the gastric fundus. Clips in the right upper quadrant. - s/p NG tube - diet has been fully advanced by Surgery - Surgery on consult; appreciate their input s/p Rectal bleed - likely 2/2 lower GI etiology - likely 2/2 hemorrhoidal bleed - Patient has reported a rectal bleed over 1 week duration; described as drips of blood - Currently hemodynamically stable - Hg stable; no transfusions required -vitals remain stable, and no immediate plans for colonoscopy. -will monitor H&H and clinically. Anasarca - etiology unclear; possible underlying malignancy is in the differential - Imaging with evidence of bilateral pleural effusions and ascites - Patient has an albumin of 2.6 - s/p IV fluids - Discussed with son about potential for malignancy and need for evaluation of abdominal fluid and/or further imaging; - Currently patient and son do not want to pursue any additional testing for evaluation of malignancy - Reported "wouldn't want that" at her age s/p Lactic acidosis - possibly 2/2 hypovolemia, unlikely 2/2 sepsis - s/p IV fluids A. fib - EKG was reviewed; rate is relatively controlled without medication - Currently not on any rate control medications - Has been on Xarelto as an outpatient; however, this has been HELD HTN - Patient takes furosemide as an outpatient; however this will be held Hypothyroidism - c/w levothyroxine Urinary retention - c/w Oxybutynin Gastrointestinal prophylaxis - c/w Protonix daily DVT prophylaxis - c/w SCDs/TEDs Disposition: - Will c/w Physical therapy VS, I&O, 24H, Fishbone Vital Signs/I&O Vital Signs Date Time Temp Pulse Resp B/P (MAP) Pulse Ox O2 Delivery O2 Flow Rate FiO2 06/30/18 14:00 98.2 73 19 137/66 (89) 94 06/25/18 12:39 Room Air I&O- Last 24 Hours up to 6 AM 06/30/18 06:00 Intake Total 430 ml Output Total 52 ml Balance 378 ml Laboratory Data 24H LABS Laboratory Tests 2 06/29/18 21:12: Lactic Acid Level 2.4*H, C-Reactive Protein, Quantitative 2.09H 06/30/18 01:46: Lactic Acid Followup at 4 Hours 1.8 06/30/18 06:13: Immature Granulocyte % (Auto) 0.5, White Blood Count 5.5, Red Blood Count 3.61L, Hemoglobin 11.8L, Hematocrit 34.3L, Mean Corpuscular Volume 95.0, Mean Corpuscular Hemoglobin 32.7, Mean Corpuscular Hemoglobin Concent 34.4, Red Cell Distribution Width 14.6H, Platelet Count 156, Neutrophils (%) (Auto) 46.9, Lymphocytes (%) (Auto) 40.4, Monocytes (%) (Auto) 11.5H, Eosinophils (%) (Auto) 0.5, Basophils (%) (Auto) 0.2, Neutrophils # (Auto) 2.6, Lymphocytes # (Auto) 2.2, Monocytes # (Auto) 0.6, Eosinophils # (Auto) 0.0, Basophils # (Auto) 0.0, Nucleated Red Blood Cells % (auto) 0.0, Anion Gap 8, Glomerular Filtration Rate > 60.0, Blood Urea Nitrogen 18, Creatinine 0.74, Sodium Level 133L, Potassium Level 4.0, Chloride Level 105, Carbon Dioxide Level 20L, Calcium Level 7.1L, Aspartate Amino Transf (AST/SGOT) 22, Alanine Aminotransferase (ALT/SGPT) 19, Alkaline Phosphatase 263H, Total Bilirubin 1.0, Total Protein 4.2L, Albumin 2.0L, Magnesium Level 2.1, Albumin/Globulin Ratio 0.91L CBC/BMP Laboratory Tests 06/29/18 17:51 06/30/18 00:10 06/30/18 06:13 Red Blood Count 3.61 L, Mean Corpuscular Volume 95.0, Mean Corpuscular Hemoglobin 32.7, Mean Corpuscular Hemoglobin Concent 34.4, Red Cell Distribution Width 14.6 H, Neutrophils (%) (Auto) 46.9, Lymphocytes (%) (Auto) 40.4, Monocytes (%) (Auto) 11.5 H, Eosinophils (%) (Auto) 0.5, Basophils (%) (Auto) 0.2, Neutrophils # (Auto) 2.6, Lymphocytes # (Auto) 2.2, Monocytes # (Auto) 0.6, Eosinophils # (Auto) 0.0, Basophils # (Auto) 0.0, Calcium Level 7.1 L, Aspartate Amino Transf (AST/SGOT) 22, Alanine Aminotransferase (ALT/SGPT) 19, Alkaline Phosphatase 263 H, Total Bilirubin 1.0, Total Protein 4.2 L, Albumin 2.0 L 06/30/18 11:47 Microbiology Microbiology 06/25/18 Blood Culture - Final, Complete NO GROWTH AFTER 5 DAYS 06/25/18 Blood Culture - Final, Complete NO GROWTH AFTER 5 DAYS MOOM BETTS MD Jun 30, 2018 16:21
[2018-06-30] MEDS: RIVAROXABAN 15 MG TAB (XARELTO) PO SCH (17:13)
[2018-06-30 19:10] LABS: HEMATOCRIT 34.3 % (36.0-47.0); HEMOGLOBIN 11.7 g/dl (12.0-15.5)
[2018-06-30 22:00] VITALS: BP 107/52
[2018-07-01] VITALS (26 sets, daily range): BP systolic 75–111; BP diastolic 44–77
[2018-07-01] MEDS: LEVOTHYROXINE 75MCG TABLET (0.075MG) PO SCH (06:01)
[2018-07-01 06:37] LABS: BASO % 0.4 % (0.0-1.0); EOS % 0.6 % (0.0-3.0); HEMATOCRIT 34.8 % (36.0-47.0); HEMOGLOBIN 11.9 g/dl (12.0-15.5); LYMPH # 2.1 10^3/uL (1.5-4.5); LYMPH % 40.8 % (24.0-44.0); MEAN CORPUSCULAR HEMOGLOBIN 32.4 pg (27.0-33.0); MEAN CORPUSCULAR HGB CONC 34.2 g/dl (32.0-36.5); MEAN CORPUSCULAR VOLUME 94.8 fl (80.0-96.0); MONO # 0.7 10^3/uL (0.0-0.8); MONO % 13.3 % (0.0-5.0); NEUTROPHILS # 2.3 10^3/uL (1.8-7.7); NEUTROPHILS % 44.1 % (36.0-66.0); PLATELET COUNT, AUTOMATED 151 10^3/uL (150-450); RED BLOOD COUNT 3.67 10^6/uL (4.00-5.40); WHITE BLOOD COUNT 5.1 10^3/uL (4.0-10.0)
[2018-07-01 07:06] LABS: ALBUMIN 2.1 GM/DL (3.2-5.2); ALT/SGPT 18 U/L (12-78); BLOOD UREA NITROGEN 18 MG/DL (7-18); CALCIUM LEVEL 7.2 MG/DL (8.8-10.2); CARBON DIOXIDE LEVEL 21 MEQ/L (21-32); CHLORIDE LEVEL 105 MEQ/L (98-107); CREATININE FOR GFR 0.76 MG/DL (0.55-1.30); GLOMERULAR FILTRATION RATE > 60.0 (>32); GLUCOSE, FASTING 72 MG/DL (70-100); MAGNESIUM LEVEL 1.9 MG/DL (1.8-2.4); POTASSIUM SERUM 4.2 MEQ/L (3.5-5.1); SODIUM LEVEL 134 MEQ/L (136-145)
[2018-07-01] MEDS: ACETAMINOPHEN TAB 650MG DOSE (2X325MG) PO PRN ×2 (07:58→21:16)
[2018-07-01] MEDS: CYANOCOBALAMIN 500 MCG TAB PO SCH (07:59)
[2018-07-01] MEDS: PANTOPRAZOLE 40MG TAB (PROTONIX) PO SCH (07:59)
[2018-07-01] MEDS: oxyBUTYnin *DITROPAN XL* 5 MG TABCR PO SCH (07:59)
--- NOTE | 2018-07-01 10:31 | DS.PDOC ---
Discharge Summary General Date of Admission Jun 25, 2018 at 11:49 Date of Discharge July 01, [address] QUINTERO, [facility] SURGERY DISCHARGE DIAGNOSES: SBO ANASARCA HEMORRHOIDAL BLEED ACUTE BLOOD LOSS DUE TO HEMORRHOIDS LACTIC ACIDOSIS AFIB HYPERTENSION HYPOTHYROID DISCHARGE MEDS: PLS SEE BELOW HISTORY OF PRESENTING ILLNESS: Patient is an 87-year-old female with a PMHx of A. fib (on Xarelto), HTN, Hypothyroidism, Urinary retention presented to the ER after expressing rectal bleeding over 1 week duration. Patient has noted that she has filled the toilet bowl with blood. Patient is a poor historian. Information was gathered from her son, Vincent Del Rio. . He is indicated that patient has been complaining of abdominal pain. In the emergency room, patient had received im aging that was consistent with possible small bowel obstruction. Patient was admitted to hospitalist service for further evaluation and treatment. Surgery was called on consultation. s/p Abdominal pain / Nausea & Vomiting; possibly 2/2 small bowel obstruction - Clinically patient notes that she's no longer experiencing abdominal pain or nausea/vomiting - No leukocytosis and remains afebrile - Physical without any significant abdominal tenderness; hernia that is reducible - CT abdomen / pelvis 06/25: Persisting marked small bowel distension with multiple air-fluid levels , similar to 04/28/2018, compatible with ongoing small bowel obstruction. Small bowel feces sign compatible with stasis. The abdominal ascites has significantly increased. There is anasarca as an interval change. Midline anterior abdominal wall hernia is again identified. Bilateral pleural effusions have increased in size. Cardiomegaly, unchanged. Grade 4 compression deformity of T12, unchanged. - XR Abdomen 06/26: Improved bowel gas pattern. One persistent loop of moderately dilated small bowel in the left mid abdomen. NG tube in the gastric fundus. Clips in the right upper quadrant. - s/p NG tube - diet has been fully advanced by Surgery - Surgery on consult; appreciate their input s/p Rectal bleed - likely 2/2 lower GI etiology - likely 2/2 hemorrhoidal bleed - Patient has reported a rectal bleed over 1 week duration; described as drips of blood - Currently hemodynamically stable - Hg stable; no transfusions required -vitals remain stable, and no immediate plans for colonoscopy. -will monitor H&H and clinically. Anasarca - etiology unclear; possible underlying malignancy is in the differen tial - Imaging with evidence of bilateral pleural effusions and ascites - Patient has an albumin of 2.6 - s/p IV fluids - Discussed with son about potential for malignancy and need for evaluation of abdominal fluid and/or further imaging; - Currently patient and son do not want to pursue any additional testing for evaluation of malignancy - Reported "wouldn't want that" at her age s/p Lactic acidosis - possibly 2/2 hypovolemia, unlikely 2/2 sepsis - s/p IV fluids A. fib - EKG was reviewed; rate is relatively controlled without medication - Currently not on any rate control medications - Has been on Xarelto as an outpatient; however, this has been HELD HTN - Patient takes furosemide as an outpatient; however this will be held Hypothyroidism - c/w levothyroxine Urinary retention - c/w Oxybutynin Gastrointestinal prophylaxis - c/w Protonix daily DVT prophylaxis - c/w SCDs/TEDs Disposition: - Will c/w Physical therapy DISCHARGE PHYSICAL EXAMINATION: Vitals (See below) General: Lying in bed, no acute distress, comfortable, Awake / Alert HEENT: NC, AT, CVS: +S1S2 Lungs: Diminished sounds at bilateral bases. No evidence of rhonchi, rales or wheezing Abdomen: Soft without distention or tenderness Extremities: Persistent 1+ pitting edema b/l, - Calf tenderness DISCHARGE LABS, IMAGING STUDIES, MICROBIOLOGY: PLS SEE BELOW TIME SPENT ON DISCHARGE : 30 MIN Vital Signs/I&Os Vital Signs Date Time Temp Pulse Resp B/P (MAP) Pulse Ox O2 Delivery O2 Flow Rate FiO2 07/01/18 06:00 98.2 72 20 90/62 (71) 94 06/25/18 12:39 Room Air I&O- Last 24 Hours up to 6 AM 07/01/18 06:00 Intake Total 670 ml Output Total 0 ml Balance 670 ml Laboratory Data Labs 24H Laboratory Tests 2 07/01/18 06:14: Immature Granulocyte % (Auto) 0.8, White Blood Count 5.1, Red Blood Count 3.67L, Hemoglobin 11.9L, Hematocrit 34.8L, Mean Corpuscular Volume 94.8, Mean Corpuscular Hemoglobin 32.4, Mean Corpuscular Hemoglobin Concent 34.2, Red Cell Distribution Width 14.6H, Platelet Count 151, Neutrophils (%) (Auto) 44.1, Lymphocytes (%) (Auto) 40.8, Monocytes (%) (Auto) 13.3H, Eosinophils (%) (Auto) 0.6, Basophils (%) (Auto) 0.4, Neutrophils # (Auto) 2.3, Lymphocytes # (Auto) 2.1, Monocytes # (Auto) 0.7, Eosinophils # (Auto) 0.0, Basophils # (Auto) 0.0, Nucleated Red Blood Cells % (auto) 0.0, Anion Gap 8, Glomerular Filtration Rate > 60.0, Blood Urea Nitrogen 18, Creatinine 0.76, Sodium Level 134L, Potassium Level 4.2, Chloride Level 105, Carbon Dioxide Level 21, Calcium Level 7.2L, Aspartate Amino Transf (AST/SGOT) 21, Alanine Aminotransferase (ALT/SGPT) 18, Alkaline Phosphatase 256H, Total Bilirubin 1.0, Total Protein 4.0L, Albumin 2.1L, Magnesium Level 1.9, Albumin/Globulin Ratio 1.11 CBC/BMP Laboratory Tests 06/30/18 11:47 06/30/18 17:59 07/01/18 06:14 Red Blood Count 3.67 L, Mean Corpuscular Volume 94.8, Mean Corpuscular Hemoglobin 32.4, Mean Corpuscular Hemoglobin Concent 34.2, Red Cell Distribution Width 14.6 H, Neutrophils (%) (Auto) 44.1, Lymphocytes (%) (Auto) 40.8, Monocytes (%) (Auto) 13.3 H, Eosinophils (%) (Auto) 0.6, Basophils (%) (Auto) 0.4, Neutrophils # (Auto) 2.3, Lymphocytes # (Auto) 2.1, Monocytes # (Auto) 0.7, Eosinophils # (Auto) 0.0, Basophils # (Auto) 0.0, Calcium Level 7.2 L, Aspartate Amino Transf (AST/SGOT) 21, Alanine Aminotransferase (ALT/SGPT) 18, Alkaline Phosphatase 256 H, Total Bilirubin 1.0, Total Protein 4.0 L, Albumin 2.1 L Microbiology Microbiology 06/25/18 Blood Culture - Final, Complete NO GROWTH AFTER 5 DAYS 06/25/18 Blood Culture - Final, Complete NO GROWTH AFTER 5 DAYS Discharge Medications Scheduled Cyanocobalamin (Vitamin B-12) (Vitamin B-12) 1,000 Mcg Tab, 1,000 MCG PO DAILY, (Reported) Levothyroxine Sodium (Synthroid) 75 Mcg Tab, 75 MCG PO DAILY, (Reported) Oxybutynin Chloride (Oxybutynin Chloride ER) 10 Mg Tab.er.24, 10 MG PO DAILY, (Reported) Rivaroxaban (Xarelto) 15 Mg Tablet, 15 MG PO DAILY@18 Scheduled PRN Acetaminophen (Tylenol Extra Strength) 500 Mg Tablet, 1,000 MG PO QID PRN for PAIN, (Reported) Allergies Coded Allergies: No Known Drug Allergies (Verified Allergy, Unknown, 06/25/18) MOMO BETTS MD Jul 01, 2018 10:31
[2018-07-01] MEDS ORDERED: XARE15TA PO (11:27)
[2018-07-01 13:28] LABS: HEMATOCRIT 37.7 % (36.0-47.0); HEMOGLOBIN 12.6 g/dl (12.0-15.5)
[2018-07-01] MEDS ORDERED: NS 500 ML IV ONE ×2 (14:00→15:15)
--- NOTE | 2018-07-01 14:27 | IPNPDOC ---
Date Seen The patient was seen on 07/01/18. Progress Note RN called re: hypotension. plan: discharge postponed check h&h q6hrs. type and screen ivfluids. check lactic acid. check card fish VS, I&O, 24H, Fishbone Vital Signs/I&O Vital Signs Date Time Temp Pulse Resp B/P (MAP) Pulse Ox O2 Delivery O2 Flow Rate FiO2 07/01/18 06:00 98.2 72 20 90/62 (71) 94 06/25/18 12:39 Room Air I&O- Last 24 Hours up to 6 AM 07/01/18 06:00 Intake Total 670 ml Output Total 0 ml Balance 670 ml Laboratory Data 24H LABS Laboratory Tests 2 07/01/18 06:14: Immature Granulocyte % (Auto) 0.8, White Blood Count 5.1, Red Blood Count 3.67L, Hemoglobin 11.9L, Hematocrit 34.8L, Mean Corpuscular Volume 94.8, Mean Corpuscular Hemoglobin 32.4, Mean Corpuscular Hemoglobin Concent 34.2, Red Cell Distribution Width 14.6H, Platelet Count 151, Neutrophils (%) (Auto) 44.1, Lymphocytes (%) (Auto) 40.8, Monocytes (%) (Auto) 13.3H, Eosinophils (%) (Auto) 0.6, Basophils (%) (Auto) 0.4, Neutrophils # (Auto) 2.3, Lymphocytes # (Auto) 2.1, Monocytes # (Auto) 0.7, Eosinophils # (Auto) 0.0, Basophils # (Auto) 0.0, Nucleated Red Blood Cells % (auto) 0.0, Anion Gap 8, Glomerular Filtration Rate > 60.0, Blood Urea Nitrogen 18, Creatinine 0.76, Sodium Level 134L, Potassium Level 4.2, Chloride Level 105, Carbon Dioxide Level 21, Calcium Level 7.2L, Aspartate Amino Transf (AST/SGOT) 21, Alanine Aminotransferase (ALT/SGPT) 18, Alkaline Phosphatase 256H, Total Bilirubin 1.0, Total Protein 4.0L, Albumin 2.1L, Magnesium Level 1.9, Albumin/Globulin Ratio 1.11 CBC/BMP Laboratory Tests 06/30/18 17:59 07/01/18 06:14 Red Blood Count 3.67 L, Mean Corpuscular Volume 94.8, Mean Corpuscular Hemoglobin 32.4, Mean Corpuscular Hemoglobin Concent 34.2, Red Cell Distribution Width 14.6 H, Neutrophils (%) (Auto) 44.1, Lymphocytes (%) (Auto) 40.8, Monocytes (%) (Auto) 13.3 H, Eosinophils (%) (Auto) 0.6, Basophils (%) (Auto) 0.4, Neutrophils # (Auto) 2.3, Lymphocytes # (Auto) 2.1, Monocytes # (Auto) 0.7, Eosinophils # (Auto) 0.0, Basophils # (Auto) 0.0, Calcium Level 7.2 L, Aspartate Amino Transf (AST/SGOT) 21, Alanine Aminotransferase (ALT/SGPT) 18, Alkaline Phosphatase 256 H, Total Bilirubin 1.0, Total Protein 4.0 L, Albumin 2.1 L 07/01/18 13:13 Microbiology Microbiology 06/25/18 Blood Culture - Final, Complete NO GROWTH AFTER 5 DAYS 06/25/18 Blood Culture - Final, Complete NO GROWTH AFTER 5 DAYS MOMO BETTS MD Jul 01, 2018 14:27
[2018-07-01 15:05] LABS: HEMATOCRIT 35.5 % (36.0-47.0); HEMOGLOBIN 12.1 g/dl (12.0-15.5)
[2018-07-01 15:43] LABS: MB/CK RELATIVE INDEX 8.33 (< OR =4); TROPONIN I 0.02 NG/ML (< 0.10)
[2018-07-01] MEDS ORDERED: SODIUM CHLORIDE 0.9% 1000ML IV ONE (16:00)
--- NOTE | 2018-07-01 16:22 | REP ---
Chest one-view HISTORY: Hypotension Comparison: 04/28/2018 Patchy density is present in the lower lobes consistent with bibasilar atelectasis or infiltrates. Small bilateral pleural effusions are present. The cardiac silhouette is enlarged. The pulmonary vasculature is normal in appearance. Impression: 1. Bibasilar atelectasis or infiltrates. 2. Small bilateral pleural effusions. Electronically Signed by Jabari Cavanaugh MD 07/01/2018 04:14 P
--- NOTE | 2018-07-01 16:26 | REP ---
Supine abdomen, single AP view: Comparison is 06/29/2018. The small bowel distension has significantly decreased. There is no colonic the tension. The intraluminal residue identified in the left upper quadrant previously and is no longer present. Impression: Significant improvement in the small bowel distension. Electronically Signed by Lebron Murphy MD 07/01/2018 04:17 P
[2018-07-01] MEDS: PIPERACILLIN/TAZOBACTAM SOD 2.25 GM in D5W MINI-BAG PLUS 50 ML IV SCH ×2 (17:00→21:16)
[2018-07-01 17:53] LABS: THYROID STIMULATING HORMONE 2.59 uIU/ML (0.358-3.740)
[2018-07-01] MEDS ORDERED: DIGOXIN INJ 0.5 MG/2 ML AMP (J1160) IV ONE (18:30)
[2018-07-01] MEDS ORDERED: NS 1,000 ML IV ONE (19:00)
--- NOTE | 2018-07-01 19:03 | IPNPDOC ---
Date Seen The patient was seen on 07/01/18. Progress Note SEPTIC SHOCK -with hypotension sbp 74mmHg, hypothermia 96, and tachycardia Afib 135. -pt has been transferred to ICU for vasopressor therapy to goal MAP >70 and IVFluids. ECHO: EF65% no wall motion abnormality -General Surgery, Dr. Ching, has been consulted for triple lumen catheter placement for levophed iv gtt, iv zosyn, and iv cardizem vs iv amiodarone for rate control due to AFib w RVR. -UA, urine C&S, blood cx x 2 sets ordered -CXR: b/l small pleural effusions. clinically no signs of aspirtaion -AXR: no free air. sbo improved. -Pt's son who is the HEALTH CARE PROXY, gives consent for central line placement, vasopressor therapy, and ICU transfer. -Pt remains DNR, DNI. ANASARCA/HYPOALBUMINEMIA -3+ B/L pitting edema -check portable vascular us to r/o DVT. [facility] Vital Signs Date Time Temp Pulse Resp B/P (MAP) Pulse Ox O2 Delivery O2 Flow Rate FiO2 07/01/18 18:27 135 07/01/18 17:21 97.0 18 78/59 (65) 98 2.0 06/25/18 12:39 Room Air I&O- Last 24 Hours up to 6 AM 07/01/18 06:00 Intake Total 670 ml Output Total 0 ml Balance 670 ml Laboratory Data 24H LABS Laboratory Tests 2 07/01/18 06:14: Immature Granulocyte % (Auto) 0.8, White Blood Count 5.1, Red Blood Count 3.67L, Hemoglobin 11.9L, Hematocrit 34.8L, Mean Corpuscular Volume 94.8, Mean Corpuscular Hemoglobin 32.4, Mean Corpuscular Hemoglobin Concent 34.2, Red Cell Distribution Width 14.6H, Platelet Count 151, Neutrophils (%) (Auto) 44.1, Lymphocytes (%) (Auto) 40.8, Monocytes (%) (Auto) 13.3H, Eosinophils (%) (Auto) 0.6, Basophils (%) (Auto) 0.4, Neutrophils # (Auto) 2.3, Lymphocytes # (Auto) 2 .1, Monocytes # (Auto) 0.7, Eosinophils # (Auto) 0.0, Basophils # (Auto) 0.0, Nucleated Red Blood Cells % (auto) 0.0, Anion Gap 8, Glomerular Filtration Rate > 60.0, Blood Urea Nitrogen 18, Creatinine 0.76, Sodium Level 134L, Potassium Level 4.2, Chloride Level 105, Carbon Dioxide Level 21, Calcium Level 7.2L, Aspartate Amino Transf (AST/SGOT) 21, Alanine Aminotransferase (ALT/SGPT) 18, Alkaline Phosphatase 256H, Total Bilirubin 1.0, Total Protein 4.0L, Albumin 2.1L, Magnesium Level 1.9, Albumin/Globulin Ratio 1.11 07/01/18 14:55: Lactic Acid Level 3.0*H, Total Creatine Kinase 24L, Creatine Kinase MB 2.0, Creatine Kinase MB Relative Index 8.33H, Troponin I 0.02, Thyroid Stimulating Hormone (TSH) 2.590 CBC/BMP Laboratory Tests 07/01/18 06:14 Red Blood Count 3.67 L, Mean Corpuscular Volume 94.8, Mean Corpuscular Hemoglobin 32.4, Mean Corpuscular Hemoglobin Concent 34.2, Red Cell Distribution Width 14.6 H, Neutrophils (%) (Auto) 44.1, Lymphocytes (%) (Auto) 40.8, Monocytes (%) (Auto) 13.3 H, Eosinophils (%) (Auto) 0.6, Basophils (%) (Auto) 0.4, Neutrophils # (Auto) 2.3, Lymphocytes # (Auto) 2.1, Monocytes # (Auto) 0.7, Eosinophils # (Auto) 0.0, Basophils # (Auto) 0.0, Calcium Level 7.2 L, Aspartate Amino Transf (AST/SGOT) 21, Alanine Aminotransferase (ALT/SGPT) 18, Alkaline Phosphatase 256 H, Total Bilirubin 1.0, Total Protein 4.0 L, Albumin 2.1 L 07/01/18 13:13 07/01/18 14:55 Microbiology Microbiology 06/25/18 Blood Culture - Final, Complete NO GROWTH AFTER 5 DAYS 06/25/18 Blood Culture - Final, Complete NO GROWTH AFTER 5 DAYS MOMO BETTS MD Jul 01, 2018 19:02
[2018-07-01 19:15] LABS: BILIRUBIN, URINE MANUAL 1+ (NEGATIVE); GLUCOSE, URINE (UA) MANUAL NEGATIVE (NEGATIVE); KETONE, URINE MANUAL NEGATIVE (NEGATIVE); UROBILINOGEN, URINE MANUAL NORMAL (NORMAL)
[2018-07-01] MEDS ORDERED: NOREPINEPHRINE BITARTRATE 16 MG in D5W 484 ML IV SCH (20:00)
--- NOTE | 2018-07-01 20:01 | REP ---
Portable chest x-ray: Single view. History: Central line placement. Comparison study: July 01, 2018. Findings: A right internal jugular central venous line has been inserted with its tip in the expected location of the right atrium. There is no visible pneumothorax. There is some fissural thickening on the minor fissure and there is blunting of the right lateral pleural angle. Cardiomegaly is observed. These findings are unchanged from the film done earlier today. Impression: Right internal jugular central venous catheter with its tip in the expected location of the right atrium. Small right pleural effusion. Cardiomegaly. Electronically Signed by Epifanio Gonzales MD 07/01/2018 07:52 P
--- NOTE | 2018-07-01 20:02 | REP ---
Portable chest x-ray: Single view. History: Central line placement. Comparison study: 07:39 p.m. film on this same date. Findings: The right internal jugular central venous catheter has been withdrawn to a position compatible with superior vena cava. No evidence of pneumothorax. No other change. Impression: The tip of the right central venous line is now in the expected location of the SVC. Electronically Signed by Epifanio Gonzales MD 07/01/2018 07:53 P
[2018-07-01 20:03] LABS: SQUAMOUS EPITHELIAL CELL URINE SMALL AMOUNT /hpf (SMALL AMT)
[2018-07-01 20:04] LABS: BACTERIA, URINE LARGE AMOUNT; CALCIUM OXALATE CRYSTALS,URINE SMALL AMOUNT /hpf; HYALINE CAST, URINE NONE SEEN /lpf (0-1)
[2018-07-01 20:31] LABS: BASO % 0.3 % (0.0-1.0); EOS % 0.3 % (0.0-3.0); HEMATOCRIT 31.1 % (36.0-47.0); HEMOGLOBIN 10.8 g/dl (12.0-15.5); LYMPH # 1.2 10^3/uL (1.5-4.5); LYMPH % 32.9 % (24.0-44.0); MEAN CORPUSCULAR HEMOGLOBIN 33.6 pg (27.0-33.0); MEAN CORPUSCULAR HGB CONC 34.7 g/dl (32.0-36.5); MEAN CORPUSCULAR VOLUME 96.9 fl (80.0-96.0); MONO # 0.4 10^3/uL (0.0-0.8); NEUTROPHILS % 55.6 % (36.0-66.0); PLATELET COUNT, AUTOMATED 143 10^3/uL (150-450); RED BLOOD COUNT 3.21 10^6/uL (4.00-5.40); WHITE BLOOD COUNT 3.5 10^3/uL (4.0-10.0)
[2018-07-01 20:42] LABS: INR 3.98; PROTHROMBIN TIME 39.8 SECONDS (12.1-14.4)
[2018-07-01] MEDS ORDERED: AMIODARONE HCL 150 MG in APPROPRIATE DILUENT 1 EA IV STA (20:42)
[2018-07-01 20:57] LABS: ALT/SGPT 16 U/L (12-78); BLOOD UREA NITROGEN 19 MG/DL (7-18); CALCIUM LEVEL 6.6 MG/DL (8.8-10.2); CARBON DIOXIDE LEVEL 18 MEQ/L (21-32); CHLORIDE LEVEL 109 MEQ/L (98-107); CPK CREATINE PHOSPHOKINASE 32 U/L (26-192); CREATININE FOR GFR 0.71 MG/DL (0.55-1.30); GLOMERULAR FILTRATION RATE > 60.0 (>32); GLUCOSE, FASTING 96 MG/DL (70-100); POTASSIUM SERUM 4.3 MEQ/L (3.5-5.1); SODIUM LEVEL 135 MEQ/L (136-145); TOTAL PROTEIN 3.7 GM/DL (6.4-8.2); TROPONIN I 0.02 NG/ML (< 0.10)
--- NOTE | 2018-07-01 23:03 | REPVR ---
EXAM: US Duplex Bilateral Lower Extremity Veins EXAM DATE/TIME: 07/01/2018 10:40 PM CLINICAL HISTORY: 88 years old, female; Signs and symptoms; Edema, localized; Lower extremity, bilateral; Additional info: Edema R/O dvt TECHNIQUE: Imaging protocol: Real-time duplex ultrasound of the Bilateral Lower Extremities with 2-D alicia scale, color Doppler flow and spectral waveform analysis. Complete exam focused on the bilateral lower extremity veins. COMPARISON: No relevant prior studies available. FINDINGS: Right deep veins: Unremarkable. The common femoral, femoral, proximal profunda femoral and popliteal veins are patent without thrombus. Normal Doppler waveforms. Normal compressibility and/or augmentation response. Right superficial veins: Saphenofemoral junction is patent without thrombus. Left deep veins: Unremarkable. The common femoral, femoral, proximal profunda femoral and popliteal veins are patent without thrombus. Normal Doppler waveforms. Normal compressibility and/or augmentation response. Left superficial veins: Saphenofemoral junction is patent without thrombus. Soft tissues: Mild subcutaneous edema. IMPRESSION: No sonographic evidence of deep vein thrombosis. Electronically signed by: Oren Hirsch On 07/01/2018 23:02:57 PM
[2018-07-02] VITALS (83 sets, daily range): BP systolic 74–108; BP diastolic 50–77
[2018-07-02] MEDS: traMADol 50 MG TAB PO PRN ×2 (00:54→06:59)
[2018-07-02] MEDS ORDERED: LIDOCAINE 5% (LIDODERM) PATCH TD ONE (01:00)
[2018-07-02] MEDS: PIPERACILLIN/TAZOBACTAM SOD 2.25 GM in D5W MINI-BAG PLUS 50 ML IV SCH ×4 (04:31→21:37)
[2018-07-02 05:08] LABS: BASO % 0.4 % (0.0-1.0); EOS % 0.2 % (0.0-3.0); HEMATOCRIT 32.7 % (36.0-47.0); LYMPH # 1.3 10^3/uL (1.5-4.5); LYMPH % 23.6 % (24.0-44.0); MEAN CORPUSCULAR HGB CONC 33.6 g/dl (32.0-36.5); MEAN CORPUSCULAR VOLUME 95.1 fl (80.0-96.0); MONO # 0.7 10^3/uL (0.0-0.8); MONO % 13.4 % (0.0-5.0); NEUTROPHILS # 3.4 10^3/uL (1.8-7.7); NEUTROPHILS % 61.8 % (36.0-66.0); PLATELET COUNT, AUTOMATED 168 10^3/uL (150-450); RED BLOOD COUNT 3.44 10^6/uL (4.00-5.40); WHITE BLOOD COUNT 5.4 10^3/uL (4.0-10.0)
[2018-07-02 06:08] LABS: ALT/SGPT 20 U/L (12-78); BILIRUBIN,TOTAL 0.9 MG/DL (0.2-1.0); BLOOD UREA NITROGEN 19 MG/DL (7-18); CALCIUM LEVEL 6.8 MG/DL (8.8-10.2); CARBON DIOXIDE LEVEL 17 MEQ/L (21-32); CHLORIDE LEVEL 108 MEQ/L (98-107); CPK CREATINE PHOSPHOKINASE 33 U/L (26-192); CREATININE FOR GFR 0.75 MG/DL (0.55-1.30); DIGOXIN LEVEL 0.6 NG/ML (0.5-2.0); GLOMERULAR FILTRATION RATE > 60.0 (>32); GLUCOSE, FASTING 106 MG/DL (70-100); MAGNESIUM LEVEL 1.6 MG/DL (1.8-2.4); MB/CK RELATIVE INDEX 9.09 (< OR =4); POTASSIUM SERUM 4.1 MEQ/L (3.5-5.1); SODIUM LEVEL 135 MEQ/L (136-145); TROPONIN I 0.02 NG/ML (< 0.10)
[2018-07-02] MEDS: LEVOTHYROXINE 75MCG TABLET (0.075MG) PO SCH (06:59)
--- NOTE | 2018-07-02 07:22 | REP ---
Portable right hip, 08:57 p.m., single AP view, the patient supine: There are no comparisons. There is questionably a nondisplaced fracture of the right ischium. This should be correlated with clinical point tenderness. No other fractures are identified. No dislocation. There is joint space narrowing compatible with arthropathy. There is diffuse demineralization. There are no calcifications or foreign bodies. There is a surgical clip inferiorly in the pelvis. There is calcified vascular atheroma. Impression: Questionable nondisplaced fracture of the right ischium. Correlate with clinical point tenderness. No other fracture or dislocation. Joint space narrowing. Demineralization. Electronically Signed by Lebron Murphy MD 07/02/2018 07:14 A
[2018-07-02] MEDS: oxyBUTYnin *DITROPAN XL* 5 MG TABCR PO SCH (08:35)
[2018-07-02] MEDS: CYANOCOBALAMIN 500 MCG TAB PO SCH (08:35)
[2018-07-02] MEDS: PANTOPRAZOLE 40MG TAB (PROTONIX) PO SCH (08:35)
--- NOTE | 2018-07-02 08:47 | RO ---
DATE OF PROCEDURE: 07/01/2018 INDICATION: Hypotension. PROCEDURE FLOAT REMOVER: Dr. Demetri Moya ATTENDING PHYSICIAN: Dr. Ching who was in attendance. Consent was obtained from Quang Kaur the health care proxy prior to the procedure. Indication, risks and benefits were explained at length. PROCEDURE SUMMARY: The [facility] central line insertion practice form was completed by the independent observer. Starting with first hand washing prior to starting sterile technique. A time out was performed. My hand was washed immediately prior to the produce. I wore a surgical mask. I wore a surgical cap, mask with protective eye wear, full gown and sterile gloves throughout the procedure. The patient was placed into Trendelenburg. The right chest region was prepped using chlorhexidine and draped in a sterile fashion using a full drape and sterile probe cover employed. The medial and lateral heads of the SCM muscles were identified as were the carotid pulse. The internal jugular vein was identified using the ultrasound. Anesthesia was achieved over the vein using 1% Lidocaine. Using real-time out of plane guidance the introducer needle was inserted into the internal jugular vein under direct ultrasound evaluation. Venous blood was withdrawn. The syringe was removed and a guidewire was advanced into the introducer needle. The guidewire was visualized in the intrajugular vein by ultrasound. The introducer needle was exchanged for a dilator over the guidewire. After appropriate dilatation was obtained the dilator was exchanged over the wire for a triple lumen central venous catheter. The wire was removed and the catheter was sutured in place. A sterile sorbavie shield was placed over the catheter at the insertion site. The patient tolerated the procedure without any hemodynamic compromise. All ports were aspirated and flushed properly. Postprocedure chest x-ray was pending at this time. ESTIMATED BLOOD LOSS: Minimal. My faculty preceptor for this patient encounter was physically present during the encounter and was fully available. All aspects of the patient interview, examination, medical decision making process, and medical care plan development were reviewed and approved by the faculty preceptor. The faculty preceptor is aware and concurs with the plan as stated in the body of this note and will attest to such by his/her cosignature.
[2018-07-02] MEDS ORDERED: NS 1,000 ML IV SCH (10:45)
[2018-07-02] MEDS ORDERED: ONDANSETRON 4 MG TAB (S0181) PO PRN (11:45)
[2018-07-02] MEDS: ONDANSETRON 4MG/2ML VIAL (J2405) IV PRN (12:15)
[2018-07-02] MEDS ORDERED: **NOTE PATIENT COMMENT** MISC XX ONE (13:00)
[2018-07-02] MEDS ORDERED: MAG SULF 1GM/100ML (MAG RUN) 1 GM in APPROPRIATE DILUENT 1 EA IV ONE (15:30)
[2018-07-02] MEDS ORDERED: DIGOXIN INJ 0.5 MG/2 ML AMP (J1160) IV ONE ×2 (15:30)
[2018-07-02] MEDS ORDERED: CALCIUM GLUCONATE 1,000 MG in D5W MINI-BAG PLUS 100 ML IV ONE ×2 (15:30→21:15)
[2018-07-02] MEDS ORDERED: SODIUM BICARBONATE 325 MG TAB PO ONE (15:30)
--- NOTE | 2018-07-02 15:35 | IPNPDOC ---
Date Seen The patient was seen on 07/02/18. Progress Note Subjective: Yesterday, pt was emergently transferred to ICU for hypothermia and hypotension with sbp 75mmHg. Triple lumen catheter was placed by Dr. Ching, [facility] surgery 07/01/18, for levophed ivgtt, iv zosyn, and ivfluids. Pt developed AFib w rvr requiring 2 doses of iv digoxin and iv amiodarone due to hypotension. cxr and axr were unchanged. This morning, pt says she feels much better. she had no fever, chills, cough, abd pain. Son and daughter were present at the bedside. awaiting urine cx. unable to titrate levophed iv gtt off. Objective: Vitals (See below) General: Lying in bed, right IJ triple lumen blood tinged. hard of hearing, pale. HEENT: NC, AT, triple lumen CVS: +S1S2 irregularly irregular Lungs: Diminished sounds at bilateral bases. No evidence of rhonchi, rales or wheezing Abdomen: Soft without distention or tenderness Extremities: Persistent 1+ pitting edema b/l, - Calf tenderness Assessment and plan:Patient is an 87-year-old female with a PMHx of A. fib (on Xarelto), HTN, Hypothyroidism, Urinary retention presented to the ER after expressing rectal bleeding over 1 week duration. Patient has noted that she has filled the toilet bowl with blood. Patient is a poor historian. Information was gathered from her son, Vincent Del Rio. . He is indicated that patient has been complaining of abdominal pain. In the emergency room, patient had received imaging that was consistent with possible small bowel obstruction. Patient was admitted to hospitalist service for further evaluation and treatment. Surgery was called on consultation. Shock requring vasopressor therapy with levophed iv gtt to MAP 65-70 s/p 4 liters ns with minimal urine output empriically treated with iv zosyn for both gram negative and anaerobic coverage troponin is negative with ECHO : 65% EF no wall motion abnormalities CXR no infiltrate or consolidation, AXR: no free air lactic acidosis resolved urine cx pending small bowel obstruction - Clinically patient notes that she's no longer experiencing abdominal pain or nausea/vomiting - No leukocytosis and remains afebrile - Physical without any significant abdominal tenderness; hernia that is reducible - CT abdomen / pelvis 06/25: Persisting marked small bowel distension with multiple air-fluid levels , similar to 04/28/2018, compatible with ongoing small bowel obstruction. Small bowel feces sign compatible with stasis. The abdominal ascites has significantly increased. There is anasarca as an interval change. Mi dline anterior abdominal wall hernia is again identified. Bilateral pleural effusions have increased in size. Cardiomegaly, unchanged. Grade 4 compression deformity of T12, unchanged. - XR Abdomen 06/26: Improved bowel gas pattern. One persistent loop of moderately dilated small bowel in the left mid abdomen. NG tube in the gastric fundus. Clips in the right upper quadrant. - s/p NG tube - diet has been fully advanced by Surgery - Surgery on consult; appreciate their input s/p Rectal bleed - likely 2/2 lower GI etiology - likely 2/2 hemorrhoidal bleed - Patient has reported a rectal bleed over 1 week duration; described as drips of blood - Currently hemodynamically stable - Hg stable; no transfusions required -vitals remain stable, and no immediate plans for colonoscopy. -will monitor H&H and clinically. Anasarca - etiology unclear; possible underlying malignancy is in the dif ferential - Imaging with evidence of bilateral pleural effusions and ascites - Patient has an albumin of 2.6 - s/p IV fluids - Discussed with son about potential for malignancy and need for evaluation of abdominal fluid and/or further imaging; - Currently patient and son do not want to pursue any additional testing for evaluation of malignancy - Reported "wouldn't want that" at her age s/p Lactic acidosis - possibly 2/2 hypovolemia, unlikely 2/2 sepsis - s/p IV fluids A. fib wiht rvr -due to shock -s/p iv digoxin x 3 doses iv amiodarone x 1 HTN - Patient takes furosemide as an outpatient; however this will be held Hypothyroidism - c/w levothyroxine Urinary retention - c/w Oxybutynin Gastrointestinal prophylaxis - c/w Protonix daily DVT prophylaxis - c/w SCDs/TEDs VS, I&O, 24H, Fishbone Vital Signs/I&O Vital Signs Date Time Temp Pulse Resp B/P (MAP) Pulse Ox O2 Delivery O2 Flow Rate FiO2 07/02/18 11:45 107 84/69 (74) 07/02/18 09:00 2.0 07/02/18 08:00 97.4 15 92 I&O- Last 24 Hours up to 6 AM 07/02/18 06:00 Intake Total 3965 ml Output Total 185 ml Balance 3780 ml Laboratory Data 24H LABS Laboratory Tests 2 07/01/18 18:39: Urine Color (MYESHA) DK YELLOW, Urine Appearance (MYESHA) CLOUDYH, Urine pH (MYESHA) 5.0, Urine Specific Riley (MYESHA) 1.020, Urine Protein TRACEH, Bedside Urine Glucose (UA) NEGATIVE, Bedside Urine Ketones (LAB) NEGATIVE, Bedside Urine Blood POSITIVEH, Bedside Urine Nitrite (LAB) POSITIVEH, Bedside Urine Bilirubin (LAB) 1+H, Bedside Urine Urobilinogen (LAB) NORMAL, Bedside Urine Leukocyte Esterase (L TRACEH, Urine Sediment Examination PERFORMED, Urine RBC 3-5H, Urine WBC 3-5H, Urine Squamous Epithelial Cells SMALL AMOUNT, Urine Calcium Oxalate Crystals SMALL AMOUNTH, Urine Bacteria LARGE AMOUNTH, Urine Hyaline Casts NONE SEEN 07/01/18 20:14: Immature Granulocyte % (Auto) 0.9, White Blood Count 3.5L, Red Blood Count 3.21L, Hemoglobin 10.8L, Hematocrit 31.1L, Mean Corpuscular Volume 96.9H, Mean Corpuscular Hemoglobin 33.6H, Mean Corpuscular Hemoglobin Concent 34.7, Red Cell Distribution Width 14.8H, Platelet Count 143L, Neutrophils (%) (Auto) 55.6, Lymphocytes (%) (Auto) 32.9, Monocytes (%) (Auto) 10.0H, Eosinophils (%) (Auto) 0.3, Basophils (%) (Auto) 0.3, Neutrophils # (Auto) 2.0, Lymphocytes # (Auto) 1.2L, Monocytes # (Auto) 0.4, Eosinophils # (Auto) 0.0, Basophils # (Auto) 0.0, Nucleated Red Blood Cells % (auto) 0.0, Prothrombin Time 39.8H, Prothromb Time International Ratio 3.98, Anion Gap 8, Glomerular Filtration Rate > 60.0, Lactic Acid Level 1.4, Blood Urea Nitrogen 19H, Creatinine 0.71, Sodium Level 135L, Potassium Level 4.3, Chloride Level 109H, Carbon Dioxide Level 18L, Calcium Level 6.6L, Aspartate Amino Transf (AST/SGOT) 20, Alanine Aminotransferase (ALT/SGPT) 16, Total Creatine Kinase 32, Alkaline Phosphatase 229H, Total Bilirubin 1.0, Total Protein 3.7L, Albumin 2.0L, Creatine Kinase MB 2.0, Creatine Kinase MB Relative Index 7.50H, Troponin I 0.02, Albumin/Globulin Ratio 1.18 07/02/18 04:52: Immature Granulocyte % (Auto) 0.6, White Blood Count 5.4, Red Blood Count 3.44L, Hemoglobin 11.0L, Hematocrit 32.7L, Mean Corpuscular Volume 95.1, Mean Corpuscular Hemoglobin 32.0, Mean Corpuscular Hemoglobin Concent 33.6, Red Cell Distribution Width 14.8H, Platelet Count 168, Neutrophils (%) (Auto) 61.8, Lymphocytes (%) (Auto) 23.6L, Monocytes (%) (Auto) 13.4H, Eosinophils (%) (Auto) 0.2, Basophils (%) (Auto) 0.4, Neutrophils # (Auto) 3.4, Lymphocytes # (Auto) 1.3L, Monocytes # (Auto) 0.7, Eosinophils # (Auto) 0.0, Basophils # (Auto) 0.0, Nucleated Red Blood Cells % (auto) 0.0, Anion Gap 10, Glomerular Filtration Rate > 60.0, Blood Urea Nitrogen 19H, Creatinine 0.75, Sodium Level 135L, Potassium Level 4.1, Chloride Level 108H, Carbon Dioxide Level 17L, Calcium Level 6.8L, Aspartate Amino Transf (AST/SGOT) 19, Alanine Aminotransferase (ALT/SGPT) 20, Total Creatine Kinase 33, Alkaline Phosphatase 232H, Total Bilirubin 0.9, Total Protein 4.0L, Albumin 2.0L, Creatine Kinase MB 3.0, Creatine Kinase MB Relative Index 9.09H, Troponin I 0.02, Albumin/Globulin Ratio 1.00, Magnesium Level 1.6L, Digoxin Level 0.6 CBC/BMP Laboratory Tests 07/01/18 20:14 Red Blood Count 3.21 L, Mean Corpuscular Volume 96.9 H, Mean Corpuscular Hemoglobin 33.6 H, Mean Corpuscular Hemoglobin Concent 34.7, Red Cell Distribution Width 14.8 H, Neutrophils (%) (Auto) 55.6, Lymphocytes (%) (Auto) 32.9, Monocytes (%) (Auto) 10.0 H, Eosinophils (%) (Auto) 0.3, Basophils (%) (Auto) 0.3, Neutrophils # (Auto) 2.0, Lymphocytes # (Auto) 1.2 L, Monocytes # (Auto) 0.4, Eosinophils # (Auto) 0.0, Basophils # (Auto) 0.0, Calcium Level 6.6 L, Aspartate Amino Transf (AST/SGOT) 20, Alanine Aminotransferase (ALT/SGPT) 16, Total Creatine Kinase 32, Alkaline Phosphatase 229 H, Total Bilirubin 1.0, Total Protein 3.7 L, Albumin 2.0 L 07/02/18 04:52 Red Blood Count 3.44 L, Mean Corpuscular Volume 95.1, Mean Corpuscular Hemoglobin 32.0, Mean Corpuscular Hemoglobin Concent 33.6, Red Cell Distribution Width 14.8 H, Neutrophils (%) (Auto) 61.8, Lymphocytes (%) (Auto) 23.6 L, M onocytes (%) (Auto) 13.4 H, Eosinophils (%) (Auto) 0.2, Basophils (%) (Auto) 0.4, Neutrophils # (Auto) 3.4, Lymphocytes # (Auto) 1.3 L, Monocytes # (Auto) 0.7, Eosinophils # (Auto) 0.0, Basophils # (Auto) 0.0, Calcium Level 6.8 L, Aspartate Amino Transf (AST/SGOT) 19, Alanine Aminotransferase (ALT/SGPT) 20, Total Creatine Kinase 33, Alkaline Phosphatase 232 H, Total Bilirubin 0.9, Total Protein 4.0 L, Albumin 2.0 L Microbiology Microbiology 07/01/18 Blood Culture, Received Pending 06/25/18 Blood Culture - Final, Complete NO GROWTH AFTER 5 DAYS 06/25/18 Blood Culture - Final, Complete NO GROWTH AFTER 5 DAYS 07/01/18 Urine Culture - Final, Complete MOMO BETTS MD Jul 02, 2018 15:35
[2018-07-02] MEDS ORDERED: SODIUM BICARBONATE 150 MEQ in STERILE WATER LITER BAG 1,000 ML IV SCH (17:00)
[2018-07-02] MEDS ORDERED: SODIUM BICARBONATE 325 MG TAB PO SCH (18:00)
[2018-07-02 18:12] LABS: IONIZED CALCIUM 4.4 MG/DL (4.5-5.3)
[2018-07-02 18:45] LABS: BLOOD UREA NITROGEN 20 MG/DL (7-18); CALCIUM LEVEL 7.1 MG/DL (8.8-10.2); CARBON DIOXIDE LEVEL 19 MEQ/L (21-32); CHLORIDE LEVEL 104 MEQ/L (98-107); GLOMERULAR FILTRATION RATE > 60.0 (>32); GLUCOSE, FASTING 144 MG/DL (70-100); POTASSIUM SERUM 4.2 MEQ/L (3.5-5.1); SODIUM LEVEL 133 MEQ/L (136-145)
[2018-07-02] MEDS ORDERED: MAGNESIUM OXIDE 400 MG TAB (MAG-OX) PO ONE (21:15)
[2018-07-02] MEDS: NOREPINEPHRINE BITARTRATE 16 MG in D5W 484 ML IV SCH (21:37)
[2018-07-03] VITALS (22 sets, daily range): BP systolic 78–114; BP diastolic 50–73
[2018-07-03] MEDS: SODIUM BICARBONATE 325 MG TAB PO SCH ×2 (00:13→07:02)
[2018-07-03 02:23] LABS: IONIZED CALCIUM 4.3 MG/DL (4.5-5.3)
[2018-07-03 02:43] LABS: BLOOD UREA NITROGEN 17 MG/DL (7-18); CARBON DIOXIDE LEVEL 23 MEQ/L (21-32); CHLORIDE LEVEL 101 MEQ/L (98-107); CREATININE FOR GFR 0.77 MG/DL (0.55-1.30); GLOMERULAR FILTRATION RATE > 60.0 (>32); GLUCOSE, FASTING 116 MG/DL (70-100); POTASSIUM SERUM 4.2 MEQ/L (3.5-5.1); SODIUM LEVEL 131 MEQ/L (136-145)
[2018-07-03] MEDS ORDERED: CALCIUM CARBONATE 500 MG CHEW U/D PO ONE (03:00)
[2018-07-03] MEDS ORDERED: CALCIUM GLUCONATE 1,000 MG in D5W MINI-BAG PLUS 100 ML IV ONE (03:00)
[2018-07-03] MEDS ORDERED: DIGOXIN INJ 0.5 MG/2 ML AMP (J1160) IV STA (03:11)
[2018-07-03] MEDS ORDERED: METOPROLOL 5 MG/5 ML VIAL IV STA (03:11)
[2018-07-03] MEDS: PIPERACILLIN/TAZOBACTAM SOD 2.25 GM in D5W MINI-BAG PLUS 50 ML IV SCH ×4 (03:51→20:59)
[2018-07-03] MEDS: LEVOTHYROXINE 75MCG TABLET (0.075MG) PO SCH (06:02)
--- NOTE | 2018-07-03 06:04 | IPNPDOC ---
Text Note Date of Service The patient was seen on 07/03/18. NOTE NIGHT FLOAT NOTE Patient reported to be tachycardic in the 130s to 150s overnight, asymptomatic and otherwise stable. She remains on Levophed 6-8 mcg overnight. One-time doses of digoxin and Lopressor were ordered for heart rate control, however she reportedly returned back to sustained heart rate 80s to 90s without any intervention. Dig and Lopressor DC'd. Continue monitoring. VS,Fishbone, I+O VS, Fishbone, I+O Laboratory Tests 07/02/18 17:59 Calcium Level 7.1 L 07/03/18 01:50 Calcium Level 7.0 L Vital Signs Date Time Temp Pulse Resp B/P (MAP) Pulse Ox O2 Delivery O2 Flow Rate FiO2 07/03/18 04:00 97.8 106 18 98/72 (81) 93 2.0 I&O- Last 24 Hours up to 6 AM 07/03/18 06:00 Intake Total 3269 ml Output Total 245 ml Balance 3024 ml GME ATTESTATION GME ATTESTATION My faculty preceptor for this patient encounter was physically present during the encounter and was fully available. All aspects of the patient interview, examination, medical decision making process, and medical care plan development were reviewed and approved by the faculty preceptor. The faculty preceptor is aware and concurs with the plan as stated in the body of this note and will attest to such by his/her cosignature. VÍCTOR GARCIA DO Jul 03, 2018 06:04
[2018-07-03 06:37] LABS: HEMATOCRIT 30.2 % (36.0-47.0); HEMOGLOBIN 10.4 g/dl (12.0-15.5); MEAN CORPUSCULAR HEMOGLOBIN 32.9 pg (27.0-33.0); MEAN CORPUSCULAR HGB CONC 34.4 g/dl (32.0-36.5); MEAN CORPUSCULAR VOLUME 95.6 fl (80.0-96.0); PLATELET COUNT, AUTOMATED 164 10^3/uL (150-450); RED BLOOD COUNT 3.16 10^6/uL (4.00-5.40); WHITE BLOOD COUNT 5.5 10^3/uL (4.0-10.0)
[2018-07-03 06:56] LABS: BLOOD UREA NITROGEN 18 MG/DL (7-18); CALCIUM LEVEL 7.2 MG/DL (8.8-10.2); CARBON DIOXIDE LEVEL 22 MEQ/L (21-32); CHLORIDE LEVEL 99 MEQ/L (98-107); CREATININE FOR GFR 0.85 MG/DL (0.55-1.30); GLOMERULAR FILTRATION RATE > 60.0 (>32); GLUCOSE, FASTING 121 MG/DL (70-100); POTASSIUM SERUM 4.3 MEQ/L (3.5-5.1); SODIUM LEVEL 129 MEQ/L (136-145)
[2018-07-03 06:57] LABS: ALBUMIN 1.8 GM/DL (3.2-5.2); ALT/SGPT 17 U/L (12-78); BILIRUBIN,TOTAL 0.7 MG/DL (0.2-1.0); MAGNESIUM LEVEL 1.8 MG/DL (1.8-2.4); TOTAL PROTEIN 3.5 GM/DL (6.4-8.2)
[2018-07-03] MEDS ORDERED: ISOVUE-370 76% 100ML VIAL (Q9967) As Ordered ONE ×2 (07:44→12:51)
[2018-07-03] MEDS: CALCIUM GLUCONATE 1,000 MG in D5W MINI-BAG PLUS 100 ML IV SCH ×2 (08:52→10:55)
[2018-07-03] MEDS: oxyBUTYnin *DITROPAN XL* 5 MG TABCR PO SCH (08:52)
[2018-07-03] MEDS: PANTOPRAZOLE 40MG TAB (PROTONIX) PO SCH (08:52)
[2018-07-03] MEDS: CYANOCOBALAMIN 500 MCG TAB PO SCH (08:52)
--- NOTE | 2018-07-03 11:46 | IPNPDOC ---
Date Seen The patient was seen on 07/03/18. Progress Note Subjective: Urine cx negative. procalcitonin slightly abnormal. still on zosyn due to persistent hypotension. refused ct thorax, abd , pelvis to rule out abscess, perforation, but lactic acid has normalized. pt's urine output remains low, but creatinine is normal. She refuses to take her ring off the left 4th digit despite anasarca and third spacing. Objective: Vitals (See below) General: Lying in bed, right IJ triple lumen blood tinged. hard of hearing, pale. HEENT: NC, AT, triple lumen CVS: +S1S2 irregularly irregular Lungs: Diminished sounds at bilateral bases. No evidence of rhonchi, rales or wheezing Abdomen: Soft without distention or tenderness Extremities: Persistent anasarca 3+ pitting edema b/l UE and LE, - Calf tenderness left ring finger -no cyanosis, skin pink. LABORATORY DATA, IMAGING STUDIES, MICROBIOLOGY: PLS SEE BELOW Portable right hip, 08:57 p.m., single AP view, the patient supine: There are no comparisons. There is questionably a nondisplaced fracture of the right ischium. This should be correlated with clinical point tenderness. No other fractures are identified. No dislocation. There is joint space narrowing compatible with arthropathy. There is diffuse demineralization. There are no calcifications or foreign bodies. There is a surgical clip inferiorly in the pelvis. There is calcified vascular atheroma. Impression: Questionable nondisplaced fracture of the right ischium. Correlate with clinical point tenderness. No other fracture or dislocation. Joint space narrowing. Demineralization. Electronically Signed by Lebron Murphy MD 07/02/2018 07:14 A DD: Lebron Murphy MD 07/02/18 0711 DT: Vinicius 07/02/18 0714 DS: IZABELLA 07/02/18 0714 07/02/18 0714 Assessment and plan:Patient is an 87-year-old female with a PMHx of A. fib (on Xarelto), HTN, Hypothyroidism, Urinary retention presented to the ER after expressing rectal bleeding over 1 week duration. Patient has noted that she has filled the toilet bowl with blood. Patient is a poor historian. Information was gathered from her son, Vincent Del Rio. . He is indicated that patient has been complaining of abdominal pain. In the emergency room, patient had received imaging that was consistent with possible small bowel obstruction. Patient was admitted to hospitalist service for further evaluation and treatment. Surgery was called on consultation. Shock requring vasopressor therapy with levophed iv gtt to MAP 65-70 s/p 4 liters ns with minimal urine output empriically treated with iv zosyn for both gram negative and anaerobic coverage troponin is negative with ECHO : 65% EF no wall motion abnormalities CXR no infiltrate or consolidation, AXR: no free air lactic acidosis resolved urine cx: negative refused CT TAP small bowel obstruction - Clinically patient notes that she's no longer experiencing abdominal pain or nausea/vomiting - No leukocytosis and remains afebrile - Physical without any significant abdominal tenderness; hernia that is re ducible - CT abdomen / pelvis 06/25: Persisting marked small bowel distension with multiple air-fluid levels , similar to 04/28/2018, compatible with ongoing small bowel obstruction. Small bowel feces sign compatible with stasis. The abdominal ascites has significantly increased. There is anasarca as an interval change. Midline anterior abdominal wall hernia is again identified. Bilateral pleural effusions have increased in size. Cardiomegaly, unchanged. Grade 4 compression deformity of T12, unchanged. - XR Abdomen 06/26: Improved bowel gas pattern. One persistent loop of moderately dilated small bowel in the left mid abdomen. NG tube in the gastric fundus. Clips in the right upper quadrant. - s/p NG tube - diet has been fully advanced by Surgery - Surgery on consult; appreciate their input -refused CTTAP s/p Rectal bleed - likely 2/2 lower GI etiology - likely 2/2 hemorrhoidal bleed - Patient has reported a rectal bleed over 1 week duration; described as drips of blood - Currently hemodynamically stable - Hg stable; no transfusions required -vitals remain stable, and no immediate plans for colonoscopy. -will monitor H&H and clinically. Anasarca - etiology unclear; possible underlying malignancy is in the differential - Imaging with evidence of bilateral pleural effusions and ascites - Patient has an albumin of 2.6 - s/p IV fluids - Discussed with son about potential for malignancy and need for evaluation of abdominal fluid and/or further imaging; - Currently patient and son do not want to pursue any additional testing for evaluation of malignancy - Reported "wouldn't want that" at her age s/p Lactic acidosis - possibly 2/2 hypovolemia, unlikely 2/2 sepsis - s/p IV fluids A. fib with rvr -due to shock -s/p iv digoxin iv amiodarone Acute Metabolic Acidosis,resolved -due to hypoperfusion form severe hypotension -optimized calcium levels -s/p 1liter bicarb iv gtt and po bicar until normalized Right ischial nondisplaced fracture -assistance with all activity. recurrent risk of falls. fall precautions. due to advanced age, unlikely to benefit from vitd -ORTHO consult once off levophed Hypomagnesemia -supplemented Hypocalcemia -supplemented HTN - Patient takes furosemide as an outpatient; however this will be held due to shock Hypothyroidism - c/w levothyroxine Urinary retention - c/w Oxybutynin Gastrointestinal prophylaxis - c/w Protonix daily DVT prophylaxis - c/w SCDs/TEDs VS, I&O, 24H, Fishbone Vital Signs/I&O Vital Signs Date Time Temp Pulse Resp B/P (MAP) Pulse Ox O2 Delivery O2 Flow Rate FiO2 07/03/18 07:03 86/50 2.0 07/03/18 06:00 101 16 94 07/03/18 04:00 97.8 I&O- Last 24 Hours up to 6 AM 07/03/18 06:00 Intake Total 3459 ml Output Total 270 ml Balance 3189 ml Laboratory Data 24H LABS Laboratory Tests 2 07/02/18 17:59: Anion Gap 10, Glomerular Filtration Rate > 60.0, Blood Urea Nitrogen 20H, Creatinine 0.80, Sodium Level 133L, Potassium Level 4.2, Chloride Level 104, Carbon Dioxide Level 19L, Calcium Level 7.1L, Whole Blood Ionized Calcium 4.4L 07/03/18 01:50: Anion Gap 7L, Glomerular Filtration Rate > 60.0, Blood Urea Nitrogen 17, Creatinine 0.77, Sodium Level 131L, Potassium Level 4.2, Chloride Level 101, Carbon Dioxide Level 23, Calcium Level 7.0L, Whole Blood Ionized Calcium 4.3L 07/03/18 06:00: Anion Gap 8, Glomerular Filtration Rate > 60.0, Blood Urea Nitrogen 18, Creatinine 0.85, Sodium Level 129L, Potassium Level 4.3, Chloride Level 99, Carbon Dioxide Level 22, Calcium Level 7.2L, Whole Blood Ionized Calcium 4.3L, Nucleated Red Blood Cells % (auto) 0.4H, Aspartate Amino Transf (AST/SGOT) 17, Alanine Aminotransferase (ALT/SGPT) 17, Alkaline Phosphatase 229H, Total Bilirubin 0.7, Total Protein 3.5L, Albumin 1.8L, Magnesium Level 1.8, Albumin/Globulin Ratio 1.06 07/03/18 08:57: Lactic Acid Level 1.9 CBC/BMP Laboratory Tests 07/02/18 17:59 Calcium Level 7.1 L 07/03/18 01:50 Calcium Level 7.0 L 07/03/18 06:00 Calcium Level 7.2 L, Red Blood Count 3.16 L, Mean Corpuscular Volume 95.6, Mean Corpuscular Hemoglobin 32.9, Mean Corpuscular Hemoglobin Concent 34.4, Red Cell Distribution Width 14.8 H, Aspartate Amino Transf (AST/SGOT) 17, Alanine Aminotransferase (ALT/SGPT) 17, Alkaline Phosphatase 229 H, Total Bilirubin 0.7, Total Protein 3.5 L, Albumin 1.8 L Microbiology Microbiology 07/01/18 Blood Culture - Preliminary, Resulted No growth after 24 hours . All specim... 06/25/18 Blood Culture - Final, Complete NO GROWTH AFTER 5 DAYS 06/25/18 Blood Culture - Final, Complete NO GROWTH AFTER 5 DAYS 07/01/18 Urine Culture - Final, Complete MOMO BETTS MD Jul 03, 2018 11:46
[2018-07-03] MEDS: RIVAROXABAN 15 MG TAB (XARELTO) PO SCH (17:21)
[2018-07-03] MEDS: NOREPINEPHRINE BITARTRATE 16 MG in D5W 484 ML IV SCH (20:58)
[2018-07-04] VITALS (44 sets, daily range): BP systolic 74–116; BP diastolic 50–82
[2018-07-04] MEDS ORDERED: FLEET ENEMA PR ONE (00:30)
[2018-07-04] MEDS: PIPERACILLIN/TAZOBACTAM SOD 2.25 GM in D5W MINI-BAG PLUS 50 ML IV SCH ×4 (04:58→22:00)
[2018-07-04] MEDS: LEVOTHYROXINE 75MCG TABLET (0.075MG) PO SCH (05:05)
[2018-07-04 05:29] LABS: HEMATOCRIT 30.7 % (36.0-47.0); HEMOGLOBIN 10.5 g/dl (12.0-15.5); MEAN CORPUSCULAR HEMOGLOBIN 32.5 pg (27.0-33.0); MEAN CORPUSCULAR HGB CONC 34.2 g/dl (32.0-36.5); PLATELET COUNT, AUTOMATED 168 10^3/uL (150-450); RED BLOOD COUNT 3.23 10^6/uL (4.00-5.40); WHITE BLOOD COUNT 6.1 10^3/uL (4.0-10.0)
[2018-07-04 06:10] LABS: ALBUMIN 1.9 GM/DL (3.2-5.2); ALT/SGPT 18 U/L (12-78); BLOOD UREA NITROGEN 16 MG/DL (7-18); CALCIUM LEVEL 7.4 MG/DL (8.8-10.2); CARBON DIOXIDE LEVEL 22 MEQ/L (21-32); CHLORIDE LEVEL 97 MEQ/L (98-107); CREATININE FOR GFR 0.78 MG/DL (0.55-1.30); GLOMERULAR FILTRATION RATE > 60.0 (>32); GLUCOSE, FASTING 120 MG/DL (70-100); MAGNESIUM LEVEL 1.8 MG/DL (1.8-2.4); POTASSIUM SERUM 4.1 MEQ/L (3.5-5.1); SODIUM LEVEL 128 MEQ/L (136-145); TOTAL PROTEIN 3.5 GM/DL (6.4-8.2)
[2018-07-04] MEDS ORDERED: FUROSEMIDE 40 MG/4 ML VIAL (J1940) IV ONE ×2 (08:00→14:00)
[2018-07-04] MEDS ORDERED: FLEET ENEMA PR PRN (09:00)
--- NOTE | 2018-07-04 09:07 | REP ---
Portable chest, 06:00 a.m., single AP view, the patient semi upright: Comparison is 07/01/2018. The there is increased density inferiorly in the right lung, this is unchanged. Left lung is clear. There is cardiomegaly, unchanged. There is a right IJ central venous catheter with the tip at the confluence of the superior vena cava and right atrium, unchanged. Impression: There is no interval change. Electronically Signed by Lebron Murphy MD 07/03/2018 07:41 A
[2018-07-04] MEDS: PANTOPRAZOLE 40MG TAB (PROTONIX) PO SCH (09:10)
[2018-07-04] MEDS: CYANOCOBALAMIN 500 MCG TAB PO SCH (09:10)
[2018-07-04] MEDS: SENNA 8.6 MG TAB (SENOKOT) PO SCH ×2 (09:10→21:00)
[2018-07-04] MEDS: oxyBUTYnin *DITROPAN XL* 5 MG TABCR PO SCH (09:11)
--- NOTE | 2018-07-04 09:16 | REP ---
CT of the chest with IV contrast:, CT pulmonary angiography protocol There are no comparison chest CTs. There are large bilateral pleural effusions. There is compression atelectasis in the adjacent lung tay. The there are no emboli in the pulmonary trunk or central pulmonary arteries. The pulmonary trunk measures 4.7 cm transverse diameter. This is compatible with pulmonary hypertension. There are no emboli in the pulmonary lobe or segment branches. The thoracic aorta is unremarkable. Cardiac size is enlarged. There is no pericardial effusion. Within the visualized upper abdomen there is ascites surrounding the liver and spleen. Impression: There are no pulmonary emboli. The pulmonary trunk is dilated compatible with pulmonary hypertension. Cardiomegaly. Large bilateral pleural effusions. Abdominal ascites. Electronically Signed by Lebron Murphy MD 07/03/2018 02:07 P
--- NOTE | 2018-07-04 09:16 | REP ---
CT of the abdomen pelvis without and with IV contrast. The IV contrast phase of the study is performed contiguous with the contrast enhanced chest CT utilizing the same IV contrast bolus. Comparison is 06/25/2018. There are bilateral pleural effusions. These are similar to the comparison CT. There is abdominal ascites surrounding the liver and spleen similar to the comparison study. There is anasarca, similar to the comparison study. The hepatic parenchyma, pancreas, spleen, the the adrenals, and kidneys are unremarkable on both phases of the study, and unchanged. Surgical clips are again identified in the gallbladder fossa. The abdominal aorta is unremarkable. There is a midline ventral hernia containing a loop of bowel, unchanged from the prior study. The hernia peritoneal defect measures 2.0 cm and the hernia sac measures 6.0 cm. The small bowel is markedly distended with multiple air-fluid levels compatible with small bowel obstruction. This is unchanged. There is wall thickening of the ascending colon as an interval change compatible with colitis in the appropriate clinical setting. Pelvis: The there is a Kerr catheter in the bladder. The bladder is collapsed. There is a small volume of pelvic ascites. The pelvic bowel loops are unremarkable. Impression: Marked small bowel distension with multiple air-fluid levels compatible with bowel obstruction, unchanged. Midline ventral hernia containing a loop of bowel, unchanged. Abdominal ascites, unchanged. Anasarca, unchanged. Bilateral pleural effusions, unchanged. Cardiomegaly, unchanged. Grade 4 compression deformity of the T12 vertebral body, unchanged. Electronically Signed by Lebron Murphy MD 07/03/2018 02:27 P
[2018-07-04 12:26] LABS: BLOOD UREA NITROGEN 16 MG/DL (7-18); CALCIUM LEVEL 7.7 MG/DL (8.8-10.2); CARBON DIOXIDE LEVEL 23 MEQ/L (21-32); CHLORIDE LEVEL 95 MEQ/L (98-107); CREATININE FOR GFR 0.82 MG/DL (0.55-1.30); GLOMERULAR FILTRATION RATE > 60.0 (>32); GLUCOSE, FASTING 127 MG/DL (70-100); POTASSIUM SERUM 3.6 MEQ/L (3.5-5.1); SODIUM LEVEL 128 MEQ/L (136-145)
[2018-07-04] MEDS ORDERED: POTASSIUM CHLORIDE 10 MEQ SR TABLET PO ONE (13:00)
[2018-07-04] MEDS ORDERED: MAG SULF 1GM/100ML (MAG RUN) 1 GM in APPROPRIATE DILUENT 1 EA IV ONE (13:00)
[2018-07-04 13:08] LABS: MAGNESIUM LEVEL 1.7 MG/DL (1.8-2.4)
[2018-07-04] MEDS: HYDROCORTISONE 100 MG/2 ML VIAL (J1720) IV SCH ×2 (13:20→21:00)
[2018-07-04] MEDS: ACETAMINOPHEN TAB 650MG DOSE (2X325MG) PO PRN (15:02)
[2018-07-04] MEDS: traMADol 50 MG TAB PO PRN ×2 (16:09→23:11)
--- NOTE | 2018-07-04 16:36 | IPNPDOC ---
Date Seen The patient was seen on 07/04/18. Progress Note Subjective: Pt c/o generalized pain. "I have pain everywhere." Per RN, pt moans everytime she is moved. She c/o sob. CT chest; no PE, but large pleural effusions. Ct abd: colitis, sbo, ventral hernia, not incarcerated. on zosyn and levophed iv gtt. Pt begins to have cyanotic toes and feet due to ongoing need for levophed iv gtt with anasarca. still on AC for Afib which has been <120bpm. Pt's son has consented to albumin infusion due to poor urine output,hypotension, and poor oral intake. pt diuresed 1.9 liters with lasix. electrolytes are optimized. Objective: Vitals (See below) General: Lying in bed, right IJ triple lumen blood tinged. hard of hearing, pale. HEENT: NC, AT, triple lumen CVS: +S1S2 irregularly irregular Lungs: Diminished sounds at bilateral bases. No evidence of rhonchi, rales or wheezing Abdomen: Soft without distention. slight tendernesss but reducible ventral hernia. Extremities: Persistent anasarca 3+ pitting edema b/l UE and LE, - Calf tenderness left ring finger -no cyanosis, bilateral LE cyanotic, cold, purple. LABORATORY DATA, IMAGING STUDIES, MICROBIOLOGY: PLS SEE BELOW 07/03/18 CT of the abdomen pelvis without and with IV contrast. bilateral pleural effusions. These are similar to the comparison CT. There is abdominal ascites surrounding the liver and spleen similar to the comparison study.There is anasarca, similar to the comparison study. The hepatic parenchyma, pancreas, spleen, the the adrenals, and kidneys are unremarkable on both phases of the study, and unchanged. Surgical clips are again identified in the gallbladder fossa. The abdominal aorta is unremarkable. There is a midline ventral hernia containing a loop of bowel, unchanged from the prior study.The hernia peritoneal defect measures 2.0 cm and the hernia sac alan ures 6.0 cm. small bowel is markedly distended with multiple air-fluid levels compatible with small bowel obstruction. This is unchanged. wall thickening of the ascending colon as an interval change compatiblewith colitis in the appropriate clinical setting. Pelvis: there is a Kerr catheter in the bladder. The bladder is collapsed. There is a small volume of pelvic ascites. The pelvic bowel loops are unremarkable. Marked small bowel distension with multiple air-fluid levels compatible with bowel obstruction, unchanged.Midline ventral hernia containing a loop of bowel, unchanged. Abdominal ascites, unchanged.Anasarca, unchanged.Bilateral pleural effusions, unchanged. Cardiomegaly, unchanged.Grade 4 compression deformity of the T12 vertebral body, unchanged. Electronically Signed by Lebron Murphy MD 07/03/2018 02:27 P 07/02/18 Portable right hip, single AP view, There is questionably a nondisplaced fracture of the right ischium. This should be correlated with clinical point tenderness.No other fractures are identified. No dislocation. There is joint space narrowing compatible with arthropathy.There is diffuse demineralization. There are no calcifications or foreign bodies.There is a surgical clip inferiorly in the pelvis. There is calcified vascular atheroma.Questionable nondisplaced fracture of the right ischium. Correlate with clinical point tenderness.No other fracture or dislocation.Joint space narrowing.Demineralization. Electronically Signed by Lebron Murphy MD 07/02/2018 07:14 A Assessment and plan:Patient is an 87-year-old female with a PMHx of A. fib (on Xarelto), HTN, Hypothyroidism, Urinary retention presented to the ER after expressing rectal bleeding over 1 week duration. Patient has noted that she has filled the toilet bowl with blood. Patient is a poor historian. Information was gathered from her son, Vincent Del Rio. . He is indicated that patient has been complaining of abdominal pain. In the emergency room, patient had received imaging that was consistent with possible small bowel obstruction. Patient was admitted to hospitalist service for further evaluation and treatment. Surgery was called on consultation. Shock requring vasopressor therapy with levophed iv gtt to MAP 65-70 due to sepsis from colitis on zosyn s/p 4 liters ns with minimal urine output empriically treated with iv zosyn for both gram negative and anaerobic coverage troponin is negative with ECHO : 65% EF no wall motion abnormalities CXR no infiltrate or consolidation, AXR: no free air lactic acidosis resolved urine cx: negative CT TAP: large bilateral pleural effusions, SBO, colitis, ventral hernia small bowel obstruction - Clinically patient notes that she's no longer experiencing abdominal pain or nausea/vomiting - No leukocytosis and remains afebrile - Physical without any significant abdominal tenderness; hernia that is reducible - CT abdomen / pelvis 06/25: Persisting marked small bowel distension with multiple air-fluid levels , similar to 04/28/2018, compatible with ongoing small bowel obstruction. Small bowel feces sign compatible with stasis. The abdominal ascites has significantly increased. There is anasarca as an interval change. Midline anterior abdominal wall hernia is again identified. Bilateral pleural effusions have increased in size. Cardiomegaly, unchanged. Grade 4 compression deformity of T12, unchanged. - XR Abdomen 06/26: Improved bowel gas pattern. One persistent loop of moderately dilated small bowel in the left mid abdomen. NG tube in the gastric fundus. Clips in the right upper quadrant. - s/p NG tube - diet has been fully advanced by Surgery - Surgery on consult; appreciate their input -07/03/18 repeat CTTAP: unchanged ventral hernia, b/l large pleural effusions, sbo, colitis s/p Rectal bleed - likely 2/2 lower GI etiology - likely 2/2 hemorrhoidal bleed - Patient has reported a rectal bleed over 1 week duration; described as drips of blood - Currently hemodynamically stable - Hg stable; no transfusions required -vitals remain stable, and no immediate plans for colonoscopy. -will monitor H&H and clinically. Anasarca - Imaging with evidence of bilateral pleural effusions and ascites - Patient has an albumin of 2.6 - s/p IV fluids - Discussed with son about potential for malignancy and need for evaluation of abdominal fluid and/or further imaging; - Currently patient and son do not want to pursue any additional testing for evaluation of malignancy - Reported "wouldn't want that" at her age s/p Lactic acidosis - possibly 2/2 hypovolemia, unlikely 2/2 sepsis - s/p IV fluids A. fib with rvr -due to shock -s/p iv digoxin iv amiodarone Acute Metabolic Acidosis,resolved -due to hypoperfusion form severe hypotension -optimized calcium levels -s/p 1liter bicarb iv gtt and po bicar until normalized Right ischial nondisplaced fracture -assistance with all activity. recurrent risk of falls. fall precautions. due to advanced age, unlikely to benefit from vitd -ORTHO consult once off levophed Hypomagnesemia -supplemented Hypocalcemia -supplemented HTN - Patient takes furosemide as an outpatient; however this will be held due to shock Hypothyroidism - c/w levothyroxine Urinary retention - c/w Oxybutynin Gastrointestinal prophylaxis - c/w Protonix daily DVT prophylaxis - c/w SCDs/TEDs VS, I&O, [facility] Vital Signs/I&O Vital Signs Date Time Temp Pulse Resp B/P (MAP) Pulse Ox O2 Delivery O2 Flow Rate FiO2 07/04/18 16:09 18 07/04/18 13:01 86 90/59 (69) 07/04/18 12:01 97.5 91 2.0 I&O- Last 24 Hours up to 6 AM 07/04/18 06:00 Intake Total 958.7 ml Output Total 530 ml Balance 428.7 ml Laboratory Data 24H LABS Laboratory Tests 2 07/03/18 19:38: Whole Blood Ionized Calcium 4.5 07/04/18 05:19: Nucleated Red Blood Cells % (auto) 0.0, Anion Gap 9, Glomerular Filtration Rate > 60.0, Blood Urea Nitrogen 16, Creatinine 0.78, Sodium Level 128L, Potassium Level 4.1, Chloride Level 97L, Carbon Dioxide Level 22, Calcium Level 7.4L, Aspartate Amino Transf (AST/SGOT) 17, Alanine Aminotransferase (ALT/SGPT) 18, Alkaline Phosphatase 244H, Total Bilirubin 1.0, Total Protein 3.5L, Albumin 1.9L, Magnesium Level 1.8, Albumin/Globulin Ratio 1.19 07/04/18 11:55: Anion Gap 10, Glomerular Filtration Rate > 60.0, Blood Urea Nitrogen 16, Creatinine 0.82, Sodium Level 128L, Potassium Level 3.6, Chloride Level 95L, Carbon Dioxide Level 23, Calcium Level 7.7L, Magnesium Level 1.7L CBC/BMP Laboratory Tests 07/04/18 05:19 Red Blood Count 3.23 L, Mean Corpuscular Volume 95.0, Mean Corpuscular Hemoglobin 32.5, Mean Corpuscular Hemoglobin Concent 34.2, Red Cell Distribution Width 14.6 H, Calcium Level 7.4 L, Aspartate Amino Transf (AST/SGOT) 17, Alanine Aminotransferase (ALT/SGPT) 18, Alkaline Phosphatase 244 H, Total Bilirubin 1.0, Total Protein 3.5 L, Albumin 1.9 L 07/04/18 11:55 Calcium Level 7.7 L Microbiology Microbiology 07/01/18 Blood Culture - Preliminary, Resulted No Growth after 48 hours. All Specime... 06/25/18 Blood Culture - Final, Complete NO GROWTH AFTER 5 DAYS 06/25/18 Blood Culture - Final, Complete NO GROWTH AFTER 5 DAYS 07/01/18 Urine Culture - Final, Complete MOMO BETTS MD Jul 04, 2018 16:31
[2018-07-04] MEDS ORDERED: AMINO AC/ELECTROLYTE/DEX/CALC 2,000 ML IV SCH (18:00)
[2018-07-04] MEDS ORDERED: FAT EMULSION IV 20% 500 ML IV SCH (18:00)
[2018-07-04] MEDS: RIVAROXABAN 15 MG TAB (XARELTO) PO SCH (18:12)
[2018-07-04 18:43] LABS: BLOOD UREA NITROGEN 15 MG/DL (7-18); CALCIUM LEVEL 7.3 MG/DL (8.8-10.2); CARBON DIOXIDE LEVEL 25 MEQ/L (21-32); CHLORIDE LEVEL 96 MEQ/L (98-107); CREATININE FOR GFR 0.88 MG/DL (0.55-1.30); GLOMERULAR FILTRATION RATE > 60.0 (>32); GLUCOSE, FASTING 154 MG/DL (70-100); MAGNESIUM LEVEL 1.9 MG/DL (1.8-2.4); POTASSIUM SERUM 3.6 MEQ/L (3.5-5.1); SODIUM LEVEL 129 MEQ/L (136-145)
[2018-07-04] MEDS: HumaLOG INSULIN (NovoLOG) PER UNIT SC SCH (18:47)
[2018-07-04] MEDS: NOREPINEPHRINE BITARTRATE 16 MG in D5W 484 ML IV SCH (20:00)
[2018-07-05] VITALS (49 sets, daily range): BP systolic 78–116; BP diastolic 50–77
[2018-07-05] MEDS: PIPERACILLIN/TAZOBACTAM SOD 2.25 GM in D5W MINI-BAG PLUS 50 ML IV SCH ×4 (04:22→21:04)
[2018-07-05] MEDS: HYDROCORTISONE 100 MG/2 ML VIAL (J1720) IV SCH ×3 (04:22→21:04)
[2018-07-05 05:01] LABS: HEMATOCRIT 27.3 % (36.0-47.0); HEMOGLOBIN 9.5 g/dl (12.0-15.5); MEAN CORPUSCULAR HEMOGLOBIN 33.2 pg (27.0-33.0); MEAN CORPUSCULAR HGB CONC 34.8 g/dl (32.0-36.5); MEAN CORPUSCULAR VOLUME 95.5 fl (80.0-96.0); PLATELET COUNT, AUTOMATED 154 10^3/uL (150-450); RED BLOOD COUNT 2.86 10^6/uL (4.00-5.40); WHITE BLOOD COUNT 6.7 10^3/uL (4.0-10.0)
[2018-07-05 05:29] LABS: ALBUMIN 2.1 GM/DL (3.2-5.2); ALT/SGPT 17 U/L (12-78); BILIRUBIN,TOTAL 0.6 MG/DL (0.2-1.0); BLOOD UREA NITROGEN 16 MG/DL (7-18); CALCIUM LEVEL 6.8 MG/DL (8.8-10.2); CARBON DIOXIDE LEVEL 24 MEQ/L (21-32); CHLORIDE LEVEL 95 MEQ/L (98-107); GLOMERULAR FILTRATION RATE > 60.0 (>32); GLUCOSE, FASTING 170 MG/DL (70-100); MAGNESIUM LEVEL 1.9 MG/DL (1.8-2.4); POTASSIUM SERUM 3.3 MEQ/L (3.5-5.1); SODIUM LEVEL 129 MEQ/L (136-145); TOTAL PROTEIN 3.8 GM/DL (6.4-8.2)
[2018-07-05] MEDS: ACETAMINOPHEN TAB 650MG DOSE (2X325MG) PO PRN (05:46)
[2018-07-05] MEDS: LEVOTHYROXINE 75MCG TABLET (0.075MG) PO SCH (05:47)
[2018-07-05] MEDS: HumaLOG INSULIN (NovoLOG) PER UNIT SC SCH ×5 (05:47→23:30)
[2018-07-05] MEDS: KCL 20MEQ IN 100ML SWI (KRUN) 20 MEQ in APPROPRIATE DILUENT 1 EA IV SCH ×4 (06:25→09:01)
[2018-07-05] MEDS: oxyBUTYnin *DITROPAN XL* 5 MG TABCR PO SCH (09:01)
[2018-07-05] MEDS: CYANOCOBALAMIN 500 MCG TAB PO SCH (09:01)
[2018-07-05] MEDS: PANTOPRAZOLE 40MG TAB (PROTONIX) PO SCH (09:01)
[2018-07-05] MEDS: SENNA 8.6 MG TAB (SENOKOT) PO SCH ×2 (09:01→21:04)
[2018-07-05] MEDS ORDERED: POTASSIUM CHLORIDE 10 MEQ SR TABLET PO ONE ×2 (09:15→21:00)
[2018-07-05] MEDS ORDERED: CALCIUM GLUCONATE 1,000 MG in D5W MINI-BAG PLUS 100 ML IV ONE ×2 (10:00→21:00)
[2018-07-05] MEDS: FUROSEMIDE 40 MG/4 ML VIAL (J1940) IV SCH ×3 (10:18→21:03)
--- NOTE | 2018-07-05 10:33 | IPNPDOC ---
Date Seen The patient was seen on 07/05/18. Progress Note Subjective: cyanosis of b/l feet and toes improved overnight, despite slight cyanosis in the plantar surface, but all toes are pink and warm today. still on levophed gtt at 8. Pt c/o generalized pain. "I have pain everywhere." Per RN, pt moans everytime she is moved. She c/o sob. CT chest; no PE, but large pleural effusions. Ct abd: colitis, sbo, ventral hernia, not incarcerated. on zosyn and levophed iv gtt. Pt begins to have cyanotic toes and feet due to ongoing need for levophed iv gtt with anasarca. still on AC for Afib which has been <120bpm. Pt's son has consented to albumin infusion due to poor urine output,hypotension, and poor oral intake. pt diuresed well with lasix. electrolytes are optimized. Objective: Vitals (See below) General: Lying in bed, right IJ triple lumen blood tinged. hard of hearing, pale. HEENT: NC, AT, triple lumen CVS: +S1S2 irregularly irregular Lungs: Diminished sounds at bilateral bases. No evidence of rhonchi, rales or wheezing Abdomen: Soft without distention. slight tendernesss but reducible ventral hernia. Extremities: Persistent anasarca 3+ pitting edema b/l UE and LE, - Calf tenderness left ring finger -no cyanosis, bilateral toes are pink in color, warm. some cyanotic areas inthe plantar feet b/l LABORATORY DATA, IMAGING STUDIES, MICROBIOLOGY: PLS SEE BELOW 07/03/18 CT of the abdomen pelvis without and with IV contrast. bilateral pleural effusions. These are similar to the comparison CT. There is abdominal ascites surrounding the liver and spleen similar to the comparison study.There is anasarca, similar to the comparison study. The hepatic parenchyma, pancreas, spleen, the the adrenals, and kidneys are unremarkable on both phases of the study, and unchanged. Surgical clips are again identified in the gallbladder fossa. The abdominal aorta is unremarkable. There is a midline ventral hernia containing a loop of bowel, unchanged from the prior study.The hernia peritoneal defect measures 2.0 cm and the hernia sac measures 6.0 cm. small bowel is markedly distended with multiple air-fluid levels compatible with small bowel obstruction. This is unchanged. wall thickening of the ascending colon as an interval change compatiblewith colitis in the appropriate clinical setting. Pelvis: there is a Kerr catheter in the bladder. The bladder is collapsed. There is a small volume of pelvic ascites. The pelvic bowel loops are unremarkable. Marked small bowel distension with multiple air-fluid levels compatible with bowel obstruction, unchanged.Midline ventral hernia containing a loop of bowel, unchanged. Abdominal ascites, unchanged.Anasarca, unchanged.Bilateral pleural effusions, unchanged. Cardiomegaly, unchanged.Grade 4 compression deformity of the T12 vertebral body, unchanged. Electronically Signed by Lebron Murphy MD 07/03/2018 02:27 P 07/02/18 Portable right hip, single AP view, There is questionably a nondisplaced fracture of the right ischium. This should be correlated with clinical point tenderness.No other fractures are identified. No dislocation. There is joint space narrowing compatible with arthropathy.There is diffuse demineralization. There are no calcifications or foreign bodies.There is a surgical clip inferiorly in the pelvis. There is calcified vascular atheroma.Questionable nondisplaced fracture of the right ischium. Correlate with clinical point tenderness.No other fracture or dislocation.Joint space narrowing.Demineralization. Electronically Signed by Lebron Murphy MD 07/02/2018 07:14 A Assessment and plan:Patient is an 87-year-old female with a PMHx of A. fib (on Xarelto), HTN, Hypothyroidism, Urinary retention presented to the ER after expressing rectal bleeding over 1 week duration. Patient has noted that she has filled the toilet bowl with blood. Patient is a poor historian. Information was gathered from her son, Vincent Del Rio. . He is indicated that patient has been complaining of abdominal pain. In the emergency room, patient had received imaging that was consistent with possible small bowel obstruction. Patient was admitted to hospitalist service for further evaluation and treatment. Surgery was called on consultation. Septic Shock requring vasopressor therapy with levophed iv gtt to MAP 65-70 due to sepsis from colitis on zosyn s/p 4 liters ns with minimal urine output empriically treated with iv zosyn for both gram negative and anaerobic coverage troponin is negative with ECHO : 65% EF no wall motion abnormalities CXR no infiltrate or consolidation, AXR: no free air lactic acidosis resolved urine cx: negative CT TAP: large bilateral pleural effusions, SBO, colitis, ventral hernia small bowel obstruction - Clinically patient notes that she's no longer experiencing abdominal pain or nausea/vomiting - No leukocytosis and remains afebrile - Physical without any significant abdominal tenderness; hernia that is reducible - CT abdomen / pelvis 06/25: Persisting marked small bowel distension with multiple air-fluid levels , similar to 04/28/2018, compatible with ongoing small bowel obstruction. Small bowel feces sign compatible with stasis. The abdominal ascites has significantly increased. There is anasarca as an interval change. Midline anterior abdominal wall hernia is again identified. Bilateral pleural effusions have increased in size. Cardiomegaly, unchanged. Grade 4 compression deformity of T12, unchanged. - XR Abdomen 06/26: Improved bowel gas pattern. One persistent loop of mo derately dilated small bowel in the left mid abdomen. NG tube in the gastric fundus. Clips in the right upper quadrant. - s/p NG tube - diet has been fully advanced by Surgery - Surgery on consult; appreciate their input -07/03/18 repeat CTTAP: unchanged ventral hernia, b/l large pleural effusions, sbo, colitis COLITIS - Clinically patient notes that she's no longer experiencing abdominal pain or nausea/vomiting - No leukocytosis and remains afebrile - Physical without any significant abdominal tenderness; hernia that is reducible - CT abdomen / pelvis 06/25: Persisting marked small bowel distension with multiple air-fluid levels , similar to 04/28/2018, compatible with ongoing small bowel obstruction. Small bowel feces sign compatible with stasis. The abdominal ascites has significantly increased. There is anasarca as an interval change. Midline anterior abdominal wall hernia is again identified. Bilateral pleural effusions have increased in size. Cardiomegaly, unchanged. Grade 4 compression deformity of T12, unchanged. - XR Abdomen 06/26: Improved bowel gas pattern. One persistent loop of moderately dilated small bowel in the left mid abdomen. NG tube in the gastric fundus. Clips in the right upper quadrant. - s/p NG tube - diet has been fully advanced by Surgery - Surgery on consult; appreciate their input -07/03/18 repeat CTTAP: unchanged ventral hernia, b/l large pleural effusions, sbo, colitis Failure to Thrive -does not eat or drink per RN -BMI 23 and hypoalbuminemia -started on TPN on 07/04/18. [facility] consulted. -continue with TPN until pt is off levophed iv gtt. s/p Rectal bleed - likely 2/2 lower GI etiology - likely 2/2 hemorrhoidal bleed - Patient has reported a rectal bleed over 1 week duration; described as drips of blood - Currently hemodynamically stable - Hg stable; no transfusions required -vitals remain stable, and no immediate plans for colonoscopy. -will monitor H&H and clinically. Anasarca - Imaging with evidence of bilateral pleural effusions and ascites - Patient has an albumin of 2.6 - s/p IV fluids - Discussed with son about potential for malignancy and need for evaluation of abdominal fluid and/or further imaging; - Currently patient and son do not want to pursue any additional testing for evaluation of malignancy - Reported "wouldn't want that" at her age -s/p albumin transfusions and lasix with good diuresis. -continue with iv lasix q6hrs x 3 doses and albumin transfusion today. s/p Lactic acidosis - possibly 2/2 hypovolemia, unlikely 2/2 sepsis - s/p IV fluids A. fib with rvr -due to shock -s/p iv digoxin iv amiodarone Acute Metabolic Acidosis,resolved -due to hypoperfusion form severe hypotension -optimized calcium levels -s/p 1liter bicarb iv gtt and po bicar until normalized Right ischial nondisplaced fracture -assistance with all activity. recurrent risk of falls. fall precautions. due to advanced age, unlikely to benefit from vitd -ORTHO consult once off levophed Hypomagnesemia -supplemented Hypocalcemia -supplemented HTN - Patient takes furosemide as an outpatient; however this will be held due to shock Hypothyroidism - c/w levothyroxine Urinary retention - c/w Oxybutynin Gastrointestinal prophylaxis - c/w Protonix daily DVT prophylaxis -on eliquis VS, I&O, 24H, Fishbone Vital Signs/I&O Vital Signs Date Time Temp Pulse Resp B/P (MAP) Pulse Ox O2 Delivery O2 Flow Rate FiO2 07/05/18 09:55 65 103/56 (72) 07/05/18 09:30 14 93 2.0 07/05/18 08:00 97.5 I&O- Last 24 Hours up to 6 AM 07/05/18 06:00 Intake Total 1344.4 ml Output Total 5060 ml Balance -3715.6 ml Laboratory Data 24H LABS Laboratory Tests 2 07/04/18 11:55: Anion Gap 10, Glomerular Filtration Rate > 60.0, Blood Urea Nitrogen 16, Creatinine 0.82, Sodium Level 128L, Potassium Level 3.6, Chloride Level 95L, Carbon Dioxide Level 23, Calcium Level 7.7L, Magnesium Level 1.7L 07/04/18 18:08: Anion Gap 8, Glomerular Filtration Rate > 60.0, Blood Urea Nitrogen 15, Creatinine 0.88, Sodium Level 129L, Potassium Level 3.6, Chloride Level 96L, Carbon Dioxide Level 25, Calcium Level 7.3L, Magnesium Level 1.9 07/05/18 00:38: Bedside Glucose (Misc Panel) 305H 07/05/18 04:47: Anion Gap 10, Glomerular Filtration Rate > 60.0, Blood Urea Nitrogen 16, Creatinine 0.90, Sodium Level 129L, Potassium Level 3.3L, Chloride Level 95L, Carbon Dioxide Level 24, Calcium Level 6.8L, Magnesium Level 1.9, Nucleated Red Blood Cells % (auto) 0.3H, Aspartate Amino Transf (AST/SGOT) 15, Alanine Aminotransferase (ALT/SGPT) 17, Alkaline Phosphatase 210H, Total Bilirubin 0.6, Total Protein 3.8L, Albumin 2.1L, Albumin/Globulin Ratio 1.24 07/05/18 05:39: Bedside Glucose (Misc Panel) 175H CBC/BMP Laboratory Tests 07/04/18 11:55 Calcium Level 7.7 L 07/04/18 18:08 Calcium Level 7.3 L 07/05/18 04:47 Calcium Level 6.8 L, Red Blood Count 2.86 L, Mean Corpuscular Volume 95.5, Mean Corpuscular Hemoglobin 33.2 H, Mean Corpuscular Hemoglobin Concent 34.8, Red Cell Distribution Width 14.6 H, Aspartate Amino Transf (AST/SGOT) 15, Alanine Aminotransferase (ALT/SGPT) 17, Alkaline Phosphatase 210 H, Total Bilirubin 0.6, Total Protein 3.8 L, Albumin 2.1 L Microbiology Microbiology 07/01/18 Blood Culture - Preliminary, Resulted No Growth after 72 hours. All specime... 06/25/18 Blood Culture - Final, Complete NO GROWTH AFTER 5 DAYS 06/25/18 Blood Culture - Final, Complete NO GROWTH AFTER 5 DAYS 07/01/18 Urine Culture - Final, Complete MOMO BETTS MD Jul 05, 2018 10:33
[2018-07-05] MEDS ORDERED: MAG SULF 1GM/100ML (MAG RUN) 1 GM in APPROPRIATE DILUENT 1 EA IV ONE (11:00)
[2018-07-05] MEDS ORDERED: MULTIVITAMIN -ADULT INJECTION 10 ML, CR/CU/SE/MN/ZN INJ 1 ML in AMINO AC/ELECTROLYTE/DE... IV SCH (18:00)
[2018-07-05] MEDS ORDERED: FAT EMULSION IV 20% 500 ML IV SCH (18:00)
[2018-07-05] MEDS: RIVAROXABAN 15 MG TAB (XARELTO) PO SCH (18:01)
[2018-07-05 19:27] LABS: IONIZED CALCIUM 4.2 MG/DL (4.5-5.3)
[2018-07-05] MEDS: NOREPINEPHRINE BITARTRATE 16 MG in D5W 484 ML IV SCH (19:41)
[2018-07-05 19:49] LABS: BLOOD UREA NITROGEN 18 MG/DL (7-18); CALCIUM LEVEL 7.5 MG/DL (8.8-10.2); CARBON DIOXIDE LEVEL 27 MEQ/L (21-32); CHLORIDE LEVEL 94 MEQ/L (98-107); GLOMERULAR FILTRATION RATE > 60.0 (>32); GLUCOSE, FASTING 139 MG/DL (70-100); POTASSIUM SERUM 3.2 MEQ/L (3.5-5.1); SODIUM LEVEL 129 MEQ/L (136-145)
[2018-07-05 23:59] LABS: IONIZED CALCIUM 4.4 MG/DL (4.5-5.3)
[2018-07-06] VITALS (30 sets, daily range): BP systolic 77–114; BP diastolic 50–70
[2018-07-06 00:48] LABS: BLOOD UREA NITROGEN 17 MG/DL (7-18); CALCIUM LEVEL 7.5 MG/DL (8.8-10.2); CARBON DIOXIDE LEVEL 27 MEQ/L (21-32); CHLORIDE LEVEL 93 MEQ/L (98-107); GLOMERULAR FILTRATION RATE > 60.0 (>32); GLUCOSE, FASTING 143 MG/DL (70-100); MAGNESIUM LEVEL 1.9 MG/DL (1.8-2.4); POTASSIUM SERUM 3.3 MEQ/L (3.5-5.1); SODIUM LEVEL 129 MEQ/L (136-145)
[2018-07-06] MEDS: traMADol 50 MG TAB PO PRN (02:37)
[2018-07-06] MEDS: PIPERACILLIN/TAZOBACTAM SOD 2.25 GM in D5W MINI-BAG PLUS 50 ML IV SCH ×4 (03:45→21:46)
[2018-07-06] MEDS: HYDROCORTISONE 100 MG/2 ML VIAL (J1720) IV SCH ×3 (04:48→20:29)
[2018-07-06] MEDS: LEVOTHYROXINE 75MCG TABLET (0.075MG) PO SCH (05:21)
[2018-07-06] MEDS: HumaLOG INSULIN (NovoLOG) PER UNIT SC SCH ×3 (05:22→18:51)
[2018-07-06 05:54] LABS: ALBUMIN 2.4 GM/DL (3.2-5.2); ALT/SGPT 14 U/L (12-78); BILIRUBIN,TOTAL 0.5 MG/DL (0.2-1.0); BLOOD UREA NITROGEN 16 MG/DL (7-18); CALCIUM LEVEL 7.3 MG/DL (8.8-10.2); CARBON DIOXIDE LEVEL 28 MEQ/L (21-32); CHLORIDE LEVEL 92 MEQ/L (98-107); CREATININE FOR GFR 0.77 MG/DL (0.55-1.30); GLOMERULAR FILTRATION RATE > 60.0 (>32); GLUCOSE, FASTING 123 MG/DL (70-100); MAGNESIUM LEVEL 1.9 MG/DL (1.8-2.4); POTASSIUM SERUM 3.1 MEQ/L (3.5-5.1); SODIUM LEVEL 129 MEQ/L (136-145); TOTAL PROTEIN 3.8 GM/DL (6.4-8.2)
[2018-07-06 05:55] LABS: HEMATOCRIT 21.6 % (36.0-47.0); HEMOGLOBIN 7.6 g/dl (12.0-15.5); MEAN CORPUSCULAR HEMOGLOBIN 33.2 pg (27.0-33.0); MEAN CORPUSCULAR HGB CONC 35.2 g/dl (32.0-36.5); MEAN CORPUSCULAR VOLUME 94.3 fl (80.0-96.0); PLATELET COUNT, AUTOMATED 115 10^3/uL (150-450); RED BLOOD COUNT 2.29 10^6/uL (4.00-5.40); WHITE BLOOD COUNT 4.9 10^3/uL (4.0-10.0)
[2018-07-06] MEDS: CYANOCOBALAMIN 500 MCG TAB PO SCH (08:11)
[2018-07-06] MEDS: PANTOPRAZOLE 40MG TAB (PROTONIX) PO SCH (08:12)
[2018-07-06] MEDS: SENNA 8.6 MG TAB (SENOKOT) PO SCH ×2 (08:12→20:29)
[2018-07-06] MEDS: oxyBUTYnin *DITROPAN XL* 5 MG TABCR PO SCH (08:12)
[2018-07-06] MEDS: KCL 10MEQ/100ML SWI (KRUN) 10 MEQ in APPROPRIATE DILUENT 1 EA IV SCH ×2 (08:13→10:21)
[2018-07-06] MEDS: POTASSIUM CHLORIDE 10 MEQ SR TABLET PO SCH (08:13)
[2018-07-06] MEDS ORDERED: FUROSEMIDE 40 MG/4 ML VIAL (J1940) IV ONE (16:15)
[2018-07-06] MEDS ORDERED: FAT EMULSION IV 20% 500 ML IV SCH (18:00)
[2018-07-06] MEDS ORDERED: AMINO AC/ELECTROLYTE/DEX/CALC 2,000 ML IV SCH (18:00)
[2018-07-06] MEDS: RIVAROXABAN 15 MG TAB (XARELTO) PO SCH (18:51)
[2018-07-06] MEDS: NOREPINEPHRINE BITARTRATE 16 MG in D5W 484 ML IV SCH (20:28)
[2018-07-07] VITALS (29 sets, daily range): BP systolic 78–103; BP diastolic 50–63
[2018-07-07] MEDS: traMADol 50 MG TAB PO PRN ×2 (01:23→20:37)
[2018-07-07] MEDS: ACETAMINOPHEN TAB 650MG DOSE (2X325MG) PO PRN (03:34)
[2018-07-07] MEDS: PIPERACILLIN/TAZOBACTAM SOD 2.25 GM in D5W MINI-BAG PLUS 50 ML IV SCH ×4 (03:34→21:44)
[2018-07-07] MEDS: HYDROCORTISONE 100 MG/2 ML VIAL (J1720) IV SCH ×3 (03:35→20:37)
[2018-07-07] MEDS: LEVOTHYROXINE 75MCG TABLET (0.075MG) PO SCH (06:22)
[2018-07-07] MEDS: HumaLOG INSULIN (NovoLOG) PER UNIT SC SCH ×4 (06:22→17:29)
--- NOTE | 2018-07-07 07:18 | IPN ---
DATE OF VISIT: 07/06/2018 SUBJECTIVE: Patient seen and examined in the room today. Patient does not have any acute complaints. Patient has still required oxygen support. Patient still required pressure support. Patient still demonstrates significant sign of fluid overload. Patient's oral intake still not optimal. OBJECTIVE: VITAL SIGNS: Temperature is 98.7, pulse 78, respiration 11, blood pressure is 100/62, pulse oximetry is 99% with 2 liters nasal canula. GENERAL: Patient is alert, awake, in no acute distress. HEENT: Normocephalic, atraumatic. Extraocular motor grossly intact. Triple-lumen central line in place. CARDIOVASCULAR: Irregularly irregular. Positive S1, S2. LUNGS: Positive crackles bilaterally. Decreased breath sounds. ABDOMEN: Soft, nontender. Bowel sounds present. Positive hernia. EXTREMITIES: 2 to 3+ pitting edema bilaterally, more significantly in the dependent area. No significant cyanotic changes noted on the finger and toe digits. LABORATORY DATA: WBC is 4.9, hemoglobin 7.6, hematocrit 21.6, platelet count is 115. Sodium is 129, potassium 3.1, chloride is 92, carbon dioxide 28, BUN 16, creatinine 0.77, GFR is greater than 60, fasting glucose 123, calcium is 7.3, magnesium 1.9, total bilirubin is 0.5, AST 10, ALT 14, alkaline phosphatase is 151, total protein is 3.8, albumin is 2.4. ASSESSMENT AND PLAN: 1. Septic shock. Patient still requires pressure support. Patient is currently on Zosyn for colitis. 2. Small bowel obstruction. Last documented bowel movement was on 07/01/2018. At the time of encounter, patient does not complain of abdominal pain. No nausea or vomiting. Status post nasogastric (NG) tube. Diet advanced by surgery. Surgery consulted. 3. Anasarca. Patient demonstrated bilateral pleural effusion, ascites, and significant dependent edema. Patient will be receiving diuretic depending on patient's clinical presentation. The patient is on Levophed for the septic shock. Previously, colleague had discussed with the son with regarding further diagnostic testing for the abdominal ascites. Patient and patient's son did not pursue additional malignancy evaluation. Will continue Lasix diuresis according to patient's clinical picture. 4. Atrial fibrillation with rapid ventricular response (RVR). Currently, rate is in the satisfactory range. Status post digoxin, amiodarone. Currently, patient is not on any rate control medications. Patient on Xarelto. 5. Acute metabolic acidosis. Patient had lactic acidosis from the septic shock. Patient is improving. 6. Failure to thrive. Still has very poor oral intake. Started on total parenteral nutrition (TPN) since 07/04/2018. 7. History of hypertension. Currently, patient being treated for septic shock on Levophed. We will use the Lasix intermittently for fluid management. 8. Hypothyroidism. On Synthroid. 9. Deep venous thrombosis (DVT) prophylaxis. Patient is on Xarelto. 10. Right ischial nondisplaced fracture. On fall precautions. Consider orthopedic consult once patient is off the pressor.
[2018-07-07 07:37] LABS: HEMATOCRIT 22.7 % (36.0-47.0); MEAN CORPUSCULAR HEMOGLOBIN 32.4 pg (27.0-33.0); MEAN CORPUSCULAR HGB CONC 35.2 g/dl (32.0-36.5); MEAN CORPUSCULAR VOLUME 91.9 fl (80.0-96.0); PLATELET COUNT, AUTOMATED 120 10^3/uL (150-450); RED BLOOD COUNT 2.47 10^6/uL (4.00-5.40); WHITE BLOOD COUNT 5.9 10^3/uL (4.0-10.0)
[2018-07-07 07:53] LABS: ALT/SGPT 15 U/L (12-78); BILIRUBIN,TOTAL 0.6 MG/DL (0.2-1.0); BLOOD UREA NITROGEN 22 MG/DL (7-18); CALCIUM LEVEL 6.7 MG/DL (8.8-10.2); CARBON DIOXIDE LEVEL 30 MEQ/L (21-32); CHLORIDE LEVEL 91 MEQ/L (98-107); CREATININE FOR GFR 0.74 MG/DL (0.55-1.30); GLOMERULAR FILTRATION RATE > 60.0 (>32); GLUCOSE, FASTING 138 MG/DL (70-100); MAGNESIUM LEVEL 1.9 MG/DL (1.8-2.4); POTASSIUM SERUM 3.7 MEQ/L (3.5-5.1); SODIUM LEVEL 128 MEQ/L (136-145); TOTAL PROTEIN 3.7 GM/DL (6.4-8.2)
[2018-07-07] MEDS: oxyBUTYnin *DITROPAN XL* 5 MG TABCR PO SCH (08:32)
[2018-07-07] MEDS: CYANOCOBALAMIN 500 MCG TAB PO SCH (08:32)
[2018-07-07] MEDS: PANTOPRAZOLE 40MG TAB (PROTONIX) PO SCH (08:32)
[2018-07-07] MEDS: SENNA 8.6 MG TAB (SENOKOT) PO SCH ×2 (08:32→20:36)
[2018-07-07] MEDS: POTASSIUM CHLORIDE 10 MEQ SR TABLET PO SCH (08:32)
[2018-07-07] MEDS: FUROSEMIDE 40 MG/4 ML VIAL (J1940) IV SCH ×3 (08:39→17:28)
[2018-07-07] MEDS: RIVAROXABAN 15 MG TAB (XARELTO) PO SCH (17:28)
[2018-07-07] MEDS ORDERED: MULTIVITAMIN -ADULT INJECTION 10 ML, CR/CU/SE/MN/ZN INJ 1 ML in AMINO AC/ELECTROLYTE/DE... IV SCH (18:00)
[2018-07-07] MEDS ORDERED: FAT EMULSION IV 20% 500 ML IV SCH (18:00)
--- NOTE | 2018-07-07 20:06 | IPNPDOC ---
Text Note Date of Service The patient was seen on 07/07/18. NOTE SUBJECTIVE: Patient is seen and examined in the room today. Patient has significant fatigue in the morning. Patient still requires pressor support. Patient continues having signs of fluid overload. OBJECTIVE: VITAL SIGNS: Listed below. GENERAL: Patient is alert, awake. Fatigue. HEENT: Normocephalic, atraumatic. Extraocular motor grossly intact. Triple-lumen central line in place. CARDIOVASCULAR: Irregularly irregular. Positive S1, S2. LUNGS: Positive crackles bilaterally. Decreased breath sounds. ABDOMEN: Soft, nontender. Bowel sounds present. Positive hernia. EXTREMITIES: 2 to 3+ pitting edema bilaterally, more significantly in the dependent area. Mild cyanotic changes noted on the finger and toe digits. LABORATORY DATA: Listed below. ASSESSMENT AND PLAN: #. Shock. - Patient still requires pressure support. Patient is currently on Zosyn for c olitis. #. Small bowel obstruction. - Last documented bowel movement was on 07/07/2018. Noabdominal pain. No nausea or vomiting. Status post nasogastric (NG) tube. Diet advanced by surgery. Surgery consulted. #. Anasarca. - Patient demonstrated bilateral pleural effusion, ascites, and significant dependent edema. Patient is on adjusting diuretic depending on patient's clinical presentation. The patient is on Levophed for the septic shock. Previously, colleague had discussed with the son with regarding further diagnostic testing for the abdominal ascites. Patient and patient's son did not pursue additional malignancy evaluation. #. Atrial fibrillation with rapid ventricular response (RVR). - Currently, rate is in the satisfactory range. Status post digoxin, amiodaron e. Currently, patient is not on any rate control medications. Patient on Xarelto. #. Acute metabolic acidosis. Patient had lactic acidosis from the septic shock. Patient is improving. #. Failure to thrive. - Still has very poor oral intake. Started on total parenteral nutrition (TPN) since 07/04/2018. #. Right ischial nondisplaced fracture. On fall precautions. Consider orthopedic consult once patient is off the pressor. #. History of hypertension. - Currently, patient being treated for septic shock on Levophed. We will use the Lasix intermittently for fluid management. #. Hypothyroidism. On Synthroid. #. Deep venous thrombosis (DVT) prophylaxis. Patient is on Xarelto. A-FIB/CHADSVASC A-FIB History Current/History of A-Fib/PAF?: Yes Current Oral Anticoagulant The: Yes VS,Fishbone, I+O VS, Fishbone, I+O Laboratory Tests 07/07/18 07:10 Red Blood Count 2.47 L, Mean Corpuscular Volume 91.9, Mean Corpuscular Hemoglobin 32.4, Mean Corpuscular Hemoglobin Concent 35.2, Red Cell Distribution Width 17.3 H, Calcium Level 6.7 L, Aspartate Amino Transf (AST/SGOT) 19, Alanine Aminotransferase (ALT/SGPT) 15, Alkaline Phosphatase 156 H, Total Bilirubin 0.6, Total Protein 3.7 L, Albumin 2.0 L Vital Signs Date Time Temp Pulse Resp B/P (MAP) Pulse Ox O2 Delivery O2 Flow Rate FiO2 07/07/18 18:00 85 18 96/57 (70) 94 07/07/18 16:00 98.3 07/07/18 07:00 2.0 I&O- Last 24 Hours up to 6 AM 07/07/18 06:00 Intake Total 1171.5 ml Output Total 1800 ml Balance -628.5 ml IVON ALVARENGA DO Jul 07, 2018 20:06
[2018-07-07] MEDS: NOREPINEPHRINE BITARTRATE 16 MG in D5W 484 ML IV SCH (20:36)
[2018-07-08] VITALS (93 sets, daily range): BP systolic 75–134; BP diastolic 46–85
[2018-07-08] MEDS: HumaLOG INSULIN (NovoLOG) PER UNIT SC SCH ×4 (00:07→18:36)
[2018-07-08] MEDS: FUROSEMIDE 40 MG/4 ML VIAL (J1940) IV SCH ×3 (00:08→12:14)
[2018-07-08] MEDS: PIPERACILLIN/TAZOBACTAM SOD 2.25 GM in D5W MINI-BAG PLUS 50 ML IV SCH ×2 (04:13→10:59)
[2018-07-08] MEDS: HYDROCORTISONE 100 MG/2 ML VIAL (J1720) IV SCH ×3 (04:13→21:59)
[2018-07-08 04:28] LABS: HEMATOCRIT 19.5 % (36.0-47.0); HEMOGLOBIN 7.2 g/dl (12.0-15.5); PLATELET COUNT, AUTOMATED 138 10^3/uL (150-450); RED BLOOD COUNT 2.12 10^6/uL (4.00-5.40); WHITE BLOOD COUNT 7.5 10^3/uL (4.0-10.0)
[2018-07-08 04:47] LABS: ERYTHROCYTE SEDIMENTATION RATE 3 mm/hr (0-42)
[2018-07-08 04:52] LABS: MEAN CORPUSCULAR HGB CONC 36.9 g/dl (32.0-36.5)
[2018-07-08 05:52] LABS: BLOOD UREA NITROGEN 29 MG/DL (7-18); C REACTIVE PROTEIN QUANTITATIV 0.57 MG/DL (0.00-0.30); CALCIUM LEVEL 6.6 MG/DL (8.8-10.2); CARBON DIOXIDE LEVEL 33 MEQ/L (21-32); CHLORIDE LEVEL 89 MEQ/L (98-107); CREATININE FOR GFR 0.81 MG/DL (0.55-1.30); GLOMERULAR FILTRATION RATE > 60.0 (>32); GLUCOSE, FASTING 205 MG/DL (70-100); POTASSIUM SERUM 3.9 MEQ/L (3.5-5.1); PREALBUMIN 15.8 MG/DL (20.0-40.0); SODIUM LEVEL 127 MEQ/L (136-145)
[2018-07-08] MEDS: LEVOTHYROXINE 75MCG TABLET (0.075MG) PO SCH (05:52)
[2018-07-08] MEDS ORDERED: GASTROGRAFIN SOLUTION 30ML (Q9963) As Ordered ONE (07:55)
[2018-07-08] MEDS ORDERED: ISOVUE-370 76% 100ML VIAL (Q9967) As Ordered ONE (08:06)
[2018-07-08] MEDS: traMADol 50 MG TAB PO PRN ×2 (08:30→18:36)
[2018-07-08] MEDS: POTASSIUM CHLORIDE 10 MEQ SR TABLET PO SCH (09:00)
[2018-07-08] MEDS: SENNA 8.6 MG TAB (SENOKOT) PO SCH ×2 (09:00→21:59)
[2018-07-08] MEDS: PANTOPRAZOLE 40MG TAB (PROTONIX) PO SCH (09:00)
[2018-07-08] MEDS: CYANOCOBALAMIN 500 MCG TAB PO SCH (09:00)
[2018-07-08] MEDS: oxyBUTYnin *DITROPAN XL* 5 MG TABCR PO SCH (09:00)
--- NOTE | 2018-07-08 10:06 | REP ---
CT abdomen and pelvis with IV and oral contrast: History: History of bowel obstruction. Comparison CT study July 03, 2018. June 25, 2018 CT study images are also reviewed. Findings: Reject Opener And Filler view again demonstrates moderately to markedly dilated air and fluid filled loop of small bowel in the left mid abdomen and a paucity of distal bowel gas consistent with persistent high-grade small bowel obstruction. There are bilateral lower lobe atelectatic changes in the lung bases. There are small to moderate bilateral pleural effusions. There is moderate to marked cardiomegaly. There is diffuse abdominal ascites mild in degree. There is an anasarca picture with diffuse edema throughout the subcutaneous fat layer. This is somewhat more prominent than it was on June 25. Unchanged from July 03. No focal hepatic or splenic lesion is seen. Pancreas is unremarkable. Gallbladder surgically absent. No adrenal or renal lesion is observed. The paraumbilical ventral hernia persists transmitting abdominal fat and some fluid. No definite bowel loop involvement. This is unchanged and projects just to the right of midline today. No other abdominal wall defect is appreciated. A Kerr catheter is noted in the otherwise empty urinary bladder. There is no evidence of free air in the abdomen. Persistently and moderately to markedly dilated small bowel loops are seen in the upper and lower abdomen. The stomach and duodenum are not dilated. Proximal jejunal loops are normal in caliber. The distal jejunal loops are quite dilated. The terminal ileal loops are collapsed. The colon is collapsed. There is right colonic diverticulosis. There is a point of transition in the dilated jejunal loops in the right of midline in the central pelvis without evidence of mass effect suggesting adhesion. There is mild mural thickening affecting the right colon and transverse segment of the colon. Scattered diverticulosis. No evidence of diverticulitis. Impression: Findings consistent with persistent high-grade small bowel obstruction involving mid jejunum. There is a point of transition in these loops to the right of midline in the pelvis. Question adhesion. No mass lesion is appreciated. Mild diffuse ascites, bilateral pleural effusions, and anasarca pattern persist. No free air. Electronically Signed by Epifanio Gonzales MD 07/08/2018 10:12 A
--- NOTE | 2018-07-08 16:03 | IPN ---
DATE: 07/08/2018 BRIEF SURGICAL UPDATE: CHIEF COMPLAINT: Abdominal pain, bowel movements times three yesterday with some blood within this, and has had a progressive anemia. The patient had a CAT scan after CAT scan imaging today, I was contacted for reconsult on the patient and recommendations concerning her abdominal pain issues. She has been given supportive care and was started on a diet previous over the last week but, however, had to be placed on some pressors to keep her blood pressure up for the last almost week. However, she has not been septic appearing, in other words not an elevated white count, and overall when the CAT scan was repeated, there was a persistent small bowel obstruction appearing with a point of transition, some adhesions, no mass or lesions, some ascites, anasarca. When I review the CAT scan, there is definite thickening of the colon, mucosal thickening of the colon down to the cecum, and as I follow this across the transverse colon has thickening of the transverse colon all the way over to the splenic flexure where I see mucosal thickening and then the descending colon, however, does not have this. The ascites can be seen in her pelvis. However, I do not see any nodularity to this and she has significant amount of ascites over the liver which is quite nodular and shrunken and she has bilateral pleural effusions still. The anasarca of her lower extremities is 4+ pitting edema. Her hematocrit is significantly low at this point. Her chemistries show that she has been diuresed significantly. Her blood urea nitrogen (BUN) is starting to bump because of the diuresis. Her albumin still is low and it seems to be dropping off more but it has been relatively stable at about 2. From the standpoint of liver function tests, her alkaline phosphatase is elevated but otherwise bilirubin, aspartate aminotransferase (AST), alanine aminotransferase (ALT) have been stable. PHYSICAL EXAMINATION: Her lungs are diminished bilaterally, diminished at the bases bilaterally and posteriorly. Heart is regular with multiple irregular beats. Abdomen is distended, although palpation does not cause as much peritoneal signs as I would think it would but she is tender throughout the upper abdomen on the right side of the abdomen around her hernia which is reducible. IMPRESSION AND PLAN: Bowel obstruction. Bowel obstruction seems to be high-grade but not complete given that she continues to have some bowel movements and I do feel that this is un-resolving and needs definitive care if we pursue that next line of treatment and I will discuss further in the next issue. However, at this point, it is most likely secondary to adhesions but with her ongoing ascites, it easily could be secondary to some malignancy that is contributing to this issue. Her second issue is her inflamed colon, right colon, transverse colon. Given her hypotension and her anemia, it is most likely that this is related to ischemia. It is most likely that this is not transmural infarction and thus supportive care is reasonable. However, my concern is that with all of her medical issues, her hypotension issues, her persistent need for pressors is that this may progress and get worse. With her ongoing ascites she has, the etiology of this has been believed secondary to some malnutrition issues. However, I feel that this issue has been truly unresolved whether this is related to cirrhosis issues, whether this is related to fluid overload issues or if it is a combination of multiple system issues. In any case, this bodes very poorly for postoperative recovery itself. From the standpoint of the overall condition that she has, I feel that continuing with supportive care is reasonable. If she is optimized enough to make operative intervention at least reasonable and not heroic then I would continue with supportive care and I would be glad if she makes some improvements enough and resolves her ischemic colitis to proceed with a lysis of adhesions procedure for her, and except the fact that she may have significant high risk for perioperative complications overall. However, with this ischemic colitis, the operation that is most likely to result would be an open laparotomy with probable lysis of adhesions, most likely a colectomy and a small bowel ostomy. The patient's tolerance for that, at this point, I feel would be very poor and I would with pressors on board, with the camilosarca, with the multiple issues ongoing, consider her a nonoperative candidate. Once again if she is currently a nonoperative candidate unless we deem this a heroic situation with the expectation that the overall likelihood is that she will in the perioperative time period and that survival is extremely low then the next best option is to optimize her and resolve the ischemic colitis which does not seem to be transmural at this point and then possibly proceed with a safer operation in the future or the last option of course is to make her comfort measures only. If this is performed, I anticipate with the pressors that she is on, with the ischemic colitis which probably has some mucosal bleeding associated with it, she will probably pass away relatively quickly. In any case, I would be glad to discuss this further with the physicians involved. I have already discussed this with the hospitalists and have discussed my concerns and impression of our next steps.
--- NOTE | 2018-07-08 16:04 | IPNPDOC ---
Text Note Date of Service The patient was seen on 07/08/18. NOTE SUBJECTIVE: Patient is seen and examined in the room today. Patient has abdominal discomfort. Patient continues having blood in stool. Patient still requires pressor support. Patient continues having signs of fluid overload. OBJECTIVE: VITAL SIGNS: Listed below. GENERAL: Patient is alert, awake. Fatigue. HEENT: Normocephalic, atraumatic. Extraocular motor grossly intact. Triple-lumen central line in place. CARDIOVASCULAR: Irregularly irregular. Positive S1, S2. LUNGS: Positive crackles bilaterally. Decreased breath sounds. ABDOMEN: Soft, nontender. Bowel sounds present. Positive hernia. EXTREMITIES: 3+ pitting edema bilaterally, more significantly in the dependent area. Mild cyanotic changes noted on the finger and toe digits. LABORATORY DATA: Listed below. ASSESSMENT AND PLAN: #. Small bowel obstruction. - Last documented bowel movement was on 07/08/2018. Patient has blood in stool. Repeated CT abdomen on 07/08/18. - Surgery consulted. Discussed with Dr. Combs. Patient has good prognosis. Patient is not a surgical candidate. - Patient has poor overall diagnosis. I have tried to contact patient's son, Mr Kaur. #. Shock. - Patient still requires pressure support. - Infectious etiology is likely as WBC, CRP and ESR are normal. No fever or chill. Patient continue having severe anasarca. #. Anasarca. - Patient demonstrated bilateral pleural effusion, ascites, and significant dependent edema. Patient is on adjusting diuretic as tolerated. Patient is on pressor. Previously, colleague had discussed with the son with regarding further diagnostic testing for the abdominal ascites. Patient and patient's son did not pursue additional malignancy evaluation. #. Atrial fibrillation with rapid ventricular response (RVR). - Currently, rate is in the satisfactory range. Status post digoxin, amiodarone. Currently, patient is not on any rate control medications. Patient on Xarelto. #. Acute metabolic acidosis. Patient had lactic acidosis from the septic shock. Patient is improving. #. Failure to thrive. - Still has very poor oral intake. Started on total parenteral nutrition (TPN) since 07/04/2018. #. Right ischial nondisplaced fracture. - On fall precautions. #. History of hypertension. - Currently, patient being treated for septic shock on Levophed. #. Hypothyroidism. On Synthroid. #. Deep venous thrombosis (DVT) prophylaxis. Patient is on Xarelto. A-FIB/CHADSVASC A-FIB History Current/History of A-Fib/PAF?: Yes VS,Fishbone, I+O VS, Fishbone, I+O Laboratory Tests 07/08/18 04:14 Red Blood Count 2.12 L, Mean Corpuscular Volume 92.0, Mean Corpuscular Hemoglobin 34.0 H, Mean Corpuscular Hemoglobin Concent 36.9 H, Red Cell Distribution Width 17.0 H, Calcium Level 6.6 L Vital Signs Date Time Temp Pulse Resp B/P (MAP) Pulse Ox O2 Delivery O2 Flow Rate FiO2 07/08/18 12:17 97.1 84 14 100/61 (74) 95 07/07/18 07:00 2.0 I&O- Last 24 Hours up to 6 AM 07/08/18 06:00 Intake Total 2031.1 ml Output Total 1530 ml Balance 501.1 ml IVON ALVARENGA DO Jul 08, 2018 16:04
[2018-07-08 16:23] LABS: INR 1.69; PROTHROMBIN TIME 20.2 SECONDS (12.1-14.4)
[2018-07-08 16:24] LABS: PARTIAL THROMBOPLASTIN TIME 39.1 SECONDS (25.4-37.6)
[2018-07-08] MEDS ORDERED: FAT EMULSION IV 20% 500 ML IV SCH (18:00)
[2018-07-08] MEDS ORDERED: FUROSEMIDE injection 250 MG in D5W 225 ML IV SCH (18:00)
[2018-07-08] MEDS ORDERED: AMINO AC/ELECTROLYTE/DEX/CALC 1,000 ML IV SCH (18:00)
[2018-07-08] MEDS: RIVAROXABAN 15 MG TAB (XARELTO) PO SCH (18:36)
[2018-07-08] MEDS: NOREPINEPHRINE BITARTRATE 16 MG in D5W 484 ML IV SCH (19:39)
[2018-07-08] MEDS: ACETAMINOPHEN TAB 650MG DOSE (2X325MG) PO PRN (22:00)
[2018-07-08 22:16] LABS: HEMATOCRIT 26.5 % (36.0-47.0)
[2018-07-08 22:19] LABS: HEMOGLOBIN 9.5 g/dl (12.0-15.5)
[2018-07-09] VITALS (37 sets, daily range): BP systolic 74–107; BP diastolic 47–62
[2018-07-09] MEDS: HumaLOG INSULIN (NovoLOG) PER UNIT SC SCH ×2 (00:25→06:00)
[2018-07-09] MEDS: traMADol 50 MG TAB PO PRN ×2 (01:26→08:31)
[2018-07-09] MEDS: tiZANidine 4 MG TAB PO PRN ×2 (03:32→08:29)
[2018-07-09 04:41] LABS: HEMOGLOBIN 9.7 g/dl (12.0-15.5); MEAN CORPUSCULAR HEMOGLOBIN 31.7 pg (27.0-33.0); MEAN CORPUSCULAR HGB CONC 35.9 g/dl (32.0-36.5); MEAN CORPUSCULAR VOLUME 88.2 fl (80.0-96.0); PLATELET COUNT, AUTOMATED 101 10^3/uL (150-450); RED BLOOD COUNT 3.06 10^6/uL (4.00-5.40); WHITE BLOOD COUNT 8.7 10^3/uL (4.0-10.0)
[2018-07-09 04:52] LABS: BLOOD UREA NITROGEN 37 MG/DL (7-18); CALCIUM LEVEL 6.5 MG/DL (8.8-10.2); CARBON DIOXIDE LEVEL 31 MEQ/L (21-32); CHLORIDE LEVEL 88 MEQ/L (98-107); CREATININE FOR GFR 0.88 MG/DL (0.55-1.30); GLOMERULAR FILTRATION RATE > 60.0 (>32); GLUCOSE, FASTING 127 MG/DL (70-100); MAGNESIUM LEVEL 1.8 MG/DL (1.8-2.4); SODIUM LEVEL 126 MEQ/L (136-145)
[2018-07-09] MEDS: HYDROCORTISONE 100 MG/2 ML VIAL (J1720) IV SCH (06:01)
[2018-07-09] MEDS: LEVOTHYROXINE 75MCG TABLET (0.075MG) PO SCH (06:02)
[2018-07-09] MEDS: CYANOCOBALAMIN 500 MCG TAB PO SCH (08:29)
[2018-07-09] MEDS: ONDANSETRON 4MG/2ML VIAL (J2405) IV PRN (08:29)
[2018-07-09] MEDS: PANTOPRAZOLE 40MG TAB (PROTONIX) PO SCH (08:29)
[2018-07-09] MEDS: SENNA 8.6 MG TAB (SENOKOT) PO SCH (08:29)
[2018-07-09] MEDS: oxyBUTYnin *DITROPAN XL* 5 MG TABCR PO SCH (08:31)
[2018-07-09] MEDS: POTASSIUM CHLORIDE 10 MEQ SR TABLET PO SCH (08:31)
[2018-07-09] MEDS ORDERED: MORPHINE SULFATE ORAL SOLN 10 MG/5 ML UD SL PRN (10:45)
--- NOTE | 2018-07-09 12:11 | IPN ---
DATE OF SERVICE: 07/09/2018 The patient was seen this morning, is writhing around in pain and discomfort and she is distended this morning and I am wondering if this is mostly secondary to her small bowel obstruction versus her colitis that I appreciated on her CT scan. Her white count still is normal and she has been afebrile. Her blood pressure is still requiring pressors, although minimal support but still present. After my discussion with medicine yesterday concerning her care, there is a planned family meeting this morning to discuss possible withdrawal of care/comfort care situation. On her physical exam, the patient is definitely uncomfortable, writhing in bed at this point. Her abdomen is distended and more distended than it was yesterday and the patient is tender mostly on the right side of her abdomen and up to the hepatic flexure area. But also in the periumbilical area and/the hernia site as well. IMPRESSION AND PLAN: The patient has either a progressive ileus secondary to the inflammatory process present or she has progression of her obstruction. In any case, I do feel NG tube decompression would at least make her more comfortable since it has in the past. However, I do feel that it is unlikely to resolve her small bowel obstruction without intervention. Unfortunately with her distension with her current comorbidities and the colitis issues that are ongoing, I do have concerns that a laparotomy would be required, not a simple laparoscopy. Her incisional hernia might complicate midline wound closure and may necessitate an open wound that needs a wound Vac and possible reoperative/exploration for abdominal wall closure in the future. All these comments are relating to the fact that this will not be a straightforward simple lysis of adhesions that typical patient's resolve relatively easily and that there is a chance that we may need to perform a extended colectomy to the significant length of colon for the inflamed colitis that was appreciated and possible need a bowel resection with ostomy as the most likely end result of operative intervention. Also repair of her abdominal wall hernia might be necessary to close her abdominal wound or it may need to be left open with wound Vac/dressings in place until she decompresses her abdomen enough so we can close this. Unfortunately with this ongoing ascites, this actually may not ever occur. I do feel that her mortality rate is with operative intervention in the perioperative time period is extremely high and the likelihood of her survival without significant complications or needing prolonged intubation and possible tracheostomy. possible feeding tube placement, probable secondary operative intervention, etc. is unlikely. Thus at this point, I do agree that comfort care is a very reasonable option for her and may be the most humane next up for her should she and her family decide. OSCAR
[2018-07-09] MEDS: LORazepam 1 MG TAB PO PRN ×2 (12:59→14:59)
[2018-07-09] MEDS: SCOPOLAMINE 1MG TRANSDERMAL PATCH TOP PRN (12:59)
[2018-07-09] MEDS: MORPHINE 10MG/0.5ML ORAL CONCENTRATE SOLUTION U/D SL PRN ×2 (14:12→15:34)
--- NOTE | 2018-07-09 22:41 | IPN ---
DATE: 07/09/2018 SUBJECTIVE: The patient is seen and examined multiple times today. 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 Patient continues moaning in pain. Patient was not responsive to questions, and she was not able to follow any commands. Later, a nasogastric (NG) tube was placed and the patient was started on more aggressive medication; the patient's pain was under better control. Yesterday, night, I contacted the patient's proxy, Mr. Vincent Del Rio, for a family meeting and this morning, four of the patient's sons and daughters were present in the intensive care unit (ICU). Two of them were healthcare proxies for the patient. I have spent extensive time discussing with all of the family members regarding the patient's overall diagnosis, prognosis and possible treatment options. All questions were answered, and they do understand that the patient carries a very significant poor long-term prognosis, and they understand patient may not benefit from further either medical or surgical intervention. They finally decided to make the patient comfortable on Medical Orders for Life-Sustaining Treatment (MOLST) form. OBJECTIVE: VITAL SIGNS: Temperature 96.9, pulse is 76, respiratory rate is 10, blood pressure is 91/55. Oxygen saturation (O2 sat) is 94% in room air. GENERAL: The patient is not alert and awake, moderate to severe distress. Normocephalic, atraumatic. Extraocular motor grossly intact. CARDIOVASCULAR: Irregularly irregular. Positive S1, S2. LUNGS: Positive crackles but difficult to auscultate the lung due to inability to follow commands. No wheeze is appreciated. ABD: very tender to palpation, distended, soft. MUSCULOSKELETAL: 3+ pitting edema in upper and lower extremity and also in most dependent area. LABORATORY DATA: WBC is 8.6, hemoglobin 9.7, hematocrit 27, platelet count is 101. Sodium is 126, potassium 4, chloride is 88, carbon dioxide 31, BUN is 37, creatinine 0.88, GFR greater than 60, fasting glucose 127, calcium is 6.5, magnesium is 1.8. ASSESSMENT: 1. Small bowel obstruction with colitis. 2. Shock. 3. Anasarca. 4. Atrial fibrillation with rapid ventricular response (RVR). 5. Acute metabolic acidosis. 6. Failure to thrive. 7. Right ischial nondisplaced fracture. 8. Hypertension. 9. Hypothyroidism. PLAN: The patient has carried very poor overall prognosis. More than 30 minutes was spent with the patient and patient's family members. Patient's diagnosis, prognosis, and treatment options were explained to all of the family members. Patient's proxies decided to make the patient comfort measures only on MOLST form and updated and signed it. Patient is in significant discomfort. Will titrate the pain medication to provide comfort. For this moment, will leave the NG tube in place for comfort measures. Overall prognosis extremely poor. MTDD
--- NOTE | 2018-07-10 12:38 | IPNPDOC ---
Text Note Date of Service The patient was seen on 07/10/18. NOTE SUBJECTIVE: The patient is seen today with her son and daughter. Patient is not responsive during the encounter. No sign of severe distress. OBJECTIVE: VITAL SIGNS: None. GENERAL: Unresponsive. Comfortable. HEENT: Very oral mucosa. Normocephalic, atraumatic. Extraocular motor grossly intact. MUSCULOSKELETAL: 3+ pitting edema in upper and lower extremity LABORATORY DATA: None ASSESSMENT: 1. Small bowel obstruction with colitis. 2. Shock. 3. Anasarca. 4. Atrial fibrillation with rapid ventricular response (RVR). 5. Acute metabolic acidosis. 6. Failure to thrive. 7. Right ischial nondisplaced fracture. 8. Hypertension. 9. Hypothyroidism. PLAN: Very poor overall prognosis. 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 Hospice medication ordered. Adjust medication as needed to provide comfort. Discussed with patient's son and daughter, no need for medication adjustment at this moment. A-FIB/CHADSVASC A-FIB History Current/History of A-Fib/PAF?: Yes VS,Fishbone, I+O VS, Fishbone, I+O Vital Signs Date Time Temp Pulse Resp B/P (MAP) Pulse Ox O2 Delivery O2 Flow Rate FiO2 07/09/18 16:10 16 07/09/18 10:00 76 91/55 (67) 91 07/09/18 08:00 96.9 07/07/18 07:00 2.0 I&O- Last 24 Hours up to 6 AM 07/10/18 06:00 Intake Total 0 ml Output Total 600 ml Balance -600 ml IVON ALVARENGA DO Jul 10, 2018 12:38
[2018-07-11] MEDS: MORPHINE 10MG/0.5ML ORAL CONCENTRATE SOLUTION U/D SL PRN (12:02)
--- NOTE | 2018-07-11 14:59 | IPNPDOC ---
Text Note Date of Service The patient was seen on 07/11/18. NOTE SUBJECTIVE: The patient is seen today with her son. Patient is not responsive. No sign of severe distress. OBJECTIVE: VITAL SIGNS: None. GENERAL: Unresponsive. Comfortable. HEENT: Very oral mucosa. Normocephalic, atraumatic. Extraocular motor grossly intact. MUSCULOSKELETAL: 3+ pitting edema in upper and lower extremity LABORATORY DATA: None ASSESSMENT: 1. Small bowel obstruction with colitis. 2. Shock. 3. Anasarca. 4. Atrial fibrillation with rapid ventricular response (RVR). 5. Acute metabolic acidosis. 6. Failure to thrive. 7. Right ischial nondisplaced fracture. 8. Hypertension. 9. Hypothyroidism. PLAN: Very poor overall prognosis. 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 Adjust medication as needed to provide comfort. Discussed with patient's son, no need for medication adjustment at this moment. A-FIB/CHADSVASC A-FIB History Current/History of A-Fib/PAF?: Yes VS,Fishbone, I+O VS, Fishbone, I+O Vital Signs Date Time Temp Pulse Resp B/P (MAP) Pulse Ox O2 Delivery O2 Flow Rate FiO2 07/11/18 12:32 16 07/09/18 10:00 76 91/55 (67) 91 07/09/18 08:00 96.9 07/07/18 07:00 2.0 I&O- Last 24 Hours up to 6 AM 07/11/18 06:00 Intake Total 0 ml Output Total 500 ml Balance -500 ml IVON ALVARENGA DO Jul 11, 2018 14:59
[2018-07-12] MEDS: MORPHINE 10MG/0.5ML ORAL CONCENTRATE SOLUTION U/D SL PRN ×3 (07:59→17:57)
--- NOTE | 2018-07-12 16:48 | IPNPDOC ---
Text Note Date of Service The patient was seen on 07/12/18. NOTE SUBJECTIVE: The patient is seen today with her son. Patient is still not responsive. No sign of severe distress at encounter. Patient states home hospice may not be option because no support. OBJECTIVE: VITAL SIGNS: None. GENERAL: Unresponsive. Comfortable. HEENT: Very oral mucosa. Normocephalic, atraumatic. Extraocular motor grossly intact. MUSCULOSKELETAL: 3+ pitting edema in upper and lower extremity LABORATORY DATA: None ASSESSMENT: 1. Small bowel obstruction with colitis. 2. Shock. 3. Anasarca. 4. Atrial fibrillation with rapid ventricular response (RVR). 5. Acute metabolic acidosis. 6. Failure to thrive. 7. Right ischial nondisplaced fracture. 8. Hypertension. 9. Hypothyroidism. PLAN: Very poor overall prognosis. 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 Hospice medication ordered. Adjust medication as needed to provide comfort. Discussed with patient's son, no need for medication adjustment at this moment. A-FIB/CHADSVASC A-FIB History Current/History of A-Fib/PAF?: Yes VS,Fishbone, I+O VS, Fishbone, I+O Vital Signs Date Time Temp Pulse Resp B/P (MAP) Pulse Ox O2 Delivery O2 Flow Rate FiO2 07/12/18 10:44 16 07/09/18 10:00 76 91/55 (67) 91 07/09/18 08:00 96.9 07/07/18 07:00 2.0 I&O- Last 24 Hours up to 6 AM 07/12/18 06:00 Intake Total 0 ml Output Total 1350 ml Balance -1350 ml IVON ALVARENGA DO Jul 12, 2018 16:48
--- NOTE | 2018-07-13 11:56 | IPNPDOC ---
Text Note Date of Service The patient was seen on 07/13/18. NOTE SUBJECTIVE: The patient is seen today with her son. OBJECTIVE: VITAL SIGNS: None. GENERAL: NAD, Comfortable. HEENT: NC/AT MUSCULOSKELETAL: 3+ pitting edema in upper and lower extremity LABORATORY DATA: None ASSESSMENT: 1. Small bowel obstruction with colitis. 2. Shock. 3. Anasarca. 4. Atrial fibrillation with rapid ventricular response (RVR). 5. Acute metabolic acidosis. 6. Failure to thrive. 7. Right ischial nondisplaced fracture. 8. Hypertension. 9. Hypothyroidism. PLAN: Very poor overall prognosis. 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 Hospice medication ordered. Discussed with patient's son. VS,Fishbone, I+O VS, Fishbone, I+O Vital Signs Date Time Temp Pulse Resp B/P (MAP) Pulse Ox O2 Delivery O2 Flow Rate FiO2 07/12/18 18:27 16 07/09/18 10:00 76 91/55 (67) 91 07/09/18 08:00 96.9 07/07/18 07:00 2.0 I&O- Last 24 Hours up to 6 AM 07/13/18 06:00 Intake Total 0 ml Output Total 1280 ml Balance -1280 ml RHIANNON SNYDER MD Jul 13, 2018 11:55
[2018-07-13] MEDS: MORPHINE 10MG/0.5ML ORAL CONCENTRATE SOLUTION U/D SL PRN (17:50)
--- NOTE | 2018-07-14 11:51 | IPNPDOC ---
Text Note Date of Service The patient was seen on 07/14/18. NOTE SUBJECTIVE: Patient seen at bedside. No acute overnight events reported. OBJECTIVE: VITAL SIGNS: None. GENERAL: NAD, Comfortable. HEENT: NC/AT MUSCULOSKELETAL: 3+ pitting edema in upper and lower extremity LABORATORY DATA: None ASSESSMENT: 1. Small bowel obstruction with colitis. 2. Shock. 3. Anasarca. 4. Atrial fibrillation with rapid ventricular response (RVR). 5. Acute metabolic acidosis. 6. Failure to thrive. 7. Right ischial nondisplaced fracture. 8. Hypertension. 9. Hypothyroidism. PLAN: Very poor overall prognosis. 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 VS,Fishbone, I+O VS, Fishbone, I+O Vital Signs Date Time Temp Pulse Resp B/P (MAP) Pulse Ox O2 Delivery O2 Flow Rate FiO2 07/13/18 18:20 16 07/09/18 10:00 76 91/55 (67) 91 07/09/18 08:00 96.9 I&O- Last 24 Hours up to 6 AM 07/14/18 06:00 Intake Total 20 ml Output Total 670 ml Balance -650 ml RHIANNON SNYDER MD July 14, 2018 11:51
[2018-07-14] MEDS: LORazepam 1 MG TAB PO PRN (16:39)
[2018-07-14] MEDS: SCOPOLAMINE 1MG TRANSDERMAL PATCH TOP PRN (16:42)
[2018-07-14] MEDS: MORPHINE 10MG/0.5ML ORAL CONCENTRATE SOLUTION U/D SL PRN (23:57)
[2018-07-15] MEDS: ATROPINE SULFATE 1% OP SOLN 2 ML BTL SL PRN ×2 (05:26→13:22)
[2018-07-15] MEDS: MORPHINE 10MG/0.5ML ORAL CONCENTRATE SOLUTION U/D SL PRN ×2 (05:26→16:55)
[2018-07-15] MEDS: LORazepam 1 MG TAB PO PRN ×2 (09:03→13:04)
--- NOTE | 2018-07-15 13:20 | IPNPDOC ---
Text Note Date of Service The patient was seen on 07/15/18. NOTE SUBJECTIVE: Patient seen at bedside. Breathing has worsened overnight. OBJECTIVE: VITAL SIGNS: None. GENERAL: NAD, Comfortable. HEENT: NC/AT MUSCULOSKELETAL: 3+ pitting edema in upper and lower extremity LABORATORY DATA: None ASSESSMENT: 1. Small bowel obstruction with colitis. 2. Shock. 3. Anasarca. 4. Atrial fibrillation with rapid ventricular response (RVR). 5. Acute metabolic acidosis. 6. Failure to thrive. 7. Right ischial nondisplaced fracture. 8. Hypertension. 9. Hypothyroidism. PLAN: Very poor overall prognosis. 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 VS,Fishbone, I+O VS, Fishbone, I+O Vital Signs Date Time Temp Pulse Resp B/P (MAP) Pulse Ox O2 Delivery O2 Flow Rate FiO2 07/15/18 05:56 16 07/09/18 10:00 76 91/55 (67) 91 07/09/18 08:00 96.9 I&O- Last 24 Hours up to 6 AM 07/15/18 06:00 Intake Total 0 ml Output Total 850 ml Balance -850 ml RHIANNON SNYDER MD July 15, 2018 13:20
--- NOTE | 2018-07-17 07:06 | DS.PDOC ---
Discharge Summary General Date of Admission Jun 25, 2018 at 11:49 Date of Discharge 07/16/18 Discharge Summary PROCEDURES PERFORMED DURING STAY: [None]. COMPLICATIONS/CHIEF COMPLAINT: Hypotension Rectal Bleeding Small Bowel Obstruction. HISTORY OF PRESENT ILLNESS: Patient is an 87-year-old female with a PMHx of A. logan (on Xarelto), HTN, Hypothyroidism, Urinary retention presented to the ER after expressing rectal bleeding over 1 week duration. Patient has noted that she has filled the toilet bowl with blood. Patient was a poor historian. Information was gathered from her son, Vincent Del Rio. He indicated that patient has been complaining of abdominal pain. Over last 3-4 weeks has been expressing vomiting over 2 weeks, described the vomitus as dark, without any evidence of blood. He is a primary caregiver for his mother. And reported that she has not experienced any fevers or chills, shortness of breath, chest pain or cough. Denied any headache, lightheadedness or loss of consciousness. He noted that they went to Dr. Fabian office and was found to have low blood pressure that prompted them to come to the emergency room for further evaluation. Patient has noted that her appetite has been poor and her son has noted that she has had a weight loss of 10 pounds over 6 months. HOSPITAL COURSE: Please refer to previous discharge summary regarding hospital details. 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 ALLERGIES: Please see below. LABORATORY DATA: Please see below. DISPOSITION: 20 . TIME SPENT ON DISCHARGE: Greater than 30 minutes. Vital Signs/I&Os Vital Signs Date Time Temp Pulse Resp B/P (MAP) Pulse Ox O2 Delivery O2 Flow Rate FiO2 07/15/18 05:56 16 Discharge Medications Scheduled Cyanocobalamin (Vitamin B-12) (Vitamin B-12) 1,000 Mcg Tab, 1,000 MCG PO DAILY, (Reported) Levothyroxine Sodium (Synthroid) 75 Mcg Tab, 75 MCG PO DAILY, (Reported) Oxybutynin Chloride (Oxybutynin Chloride ER) 10 Mg Tab.er.24, 10 MG PO DAILY, (Reported) Rivaroxaban (Xarelto) 15 Mg Tablet, 15 MG PO DAILY@18 Scheduled PRN Acetaminophen (Tylenol Extra Strength) 500 Mg Tablet, 1,000 MG PO QID PRN for PAIN, (Reported) Allergies Coded Allergies: No Known Drug Allergies (Verified Allergy, Unknown, 06/25/18) RHIANNON SNYDER MD July 17, 2018 07:06
== END 2018-07-16 | disposition expired | DRG 388 ==
LOC: M ED 09:11 → M ED INP 11:49 → M ICU 12:52 → M PCU 06-26 16:11 → M MSPAV 06-27 12:31 → M PCU 07-01 17:16 → M ICU 07-01 20:00 → M MSPAV 07-09 13:06
PROVIDERS: ADMIT Internal Medicine; ATTEND Internal Medicine
PROC: 30233N1 Transfusion of Nonautologous Red Blood Cells into Peripheral Vein, Percutaneous Approach (ICD-10-PCS; principal; 2018-07-06)
DX: K56.609 Unspecified intestinal obstruction, unspecified as to partial versus complete obstruction (principal); A41.9 Sepsis, unspecified organism; R65.21 Severe sepsis with septic shock; E87.2 Acidosis; K55.9 Vascular disorder of intestine, unspecified; D62 Acute posthemorrhagic anemia; R60.1 Generalized edema; I48.91 Unspecified atrial fibrillation; Z79.01 Long term (current) use of anticoagulants; I10 Essential (primary) hypertension; E03.9 Hypothyroidism, unspecified; R33.9 Retention of urine, unspecified; Z79.899 Other long term (current) drug therapy; E83.42 Hypomagnesemia; E83.51 Hypocalcemia; I95.9 Hypotension, unspecified; R68.0 Hypothermia, not associated with low environmental temperature; Z51.5 Encounter for palliative care; R62.7 Adult failure to thrive; K52.9 Noninfective gastroenteritis and colitis, unspecified; K64.0 First degree hemorrhoids